=== PATIENT | female | born 1940 | race Caucasian/White ===

== ENCOUNTER → 2016-06-10 | Outpatient (CLI) | payer OTHER, BC ==
--- NOTE | 2016-06-10 09:33 | MRI ---
HISTORY: Low back pain, left radiculopathy Study: MRI lumbar spine without contrast Comparison: None Technique: Multiplanar multi-sequence MRI of the lumbar spine was obtained. Sagittal T1, sagittal T 2, and stir weighted images, axial T1, and axial T2 images were obtained. Findings: There is a compression fracture of T12 with signal characteristics suggesting that it is not recent. There is mild retrolisthesis L2 on L3 and L3 on L4. There is slight anterolisthesis L5 on S1. The l umbar spine demonstrates the expected signal characteristics of the bone marrow. The conus of the c ord terminates normally. T12 -- L1: Broad-based disc protrusion effaces the thecal sac however the neural foramina are patent . The joints are normal. L1 -- L2: Broad-based disk bulging effaces the thecal sac however the neural foramina are patent. Th e joints are normal. L2 -- L3: There is slight retrolisthesis L2 on L3. There is disc degeneration. Mild disk osteophyte formation and retrolisthesis contribute along with facet arthropathy to mild lateral recess narrowin g on the left and more significant lateral recess and foraminal narrowing on the right. L3 -- L4: There is disc degeneration with mild retrolisthesis L3 on L4 which contributes along with broad-based disc osteophyte formation and disk bulging and bilateral facet arthropathy and ligamento us hypertrophy to a significant spinal stenosis with lateral recess and foraminal narrowing bilatera lly worse on the right than the left. L4 -- L5: Broad-based disc protrusion contributes along with ligamentous hypertrophy, facet arthropa thy, and pedicular shortening to a significant spinal stenosis with marked lateral recess and forami nal narrowing bilaterally left worse than right. The involvement on the left is more prominent than at any of the levels above. L5 -- S1: Broad-based disc bulging contributes along with bilateral facet arthropathy to lateral rec ess and foraminal narrowing worse on the left than the right. IMPRESSION: As above Reported By:
== END | disposition home or self-care (01) | DRG 552 ==
LOC: RAD 08:10
PROVIDERS: ATTEND Internal Medicine
DX: M54.5 Low back pain (principal); M12.88 Other specific arthropathies, not elsewhere classified, other specified site
CPT/HCPCS: 72148

== ENCOUNTER 2017-01-28 15:26 | Inpatient (IN) | payer OTHER, BC ==
[2017-01-28] MEDS ORDERED: NITROSTAT SL PRN (17:36)
[2017-01-28] MEDS ORDERED: MORPHINE SULFATE INJ 2 MG INJ IVP PRN (17:36)
[2017-01-28 17:58] LABS: BASOPHILS # (AUTO) 0.1 X10^3/uL (0.0-0.1); BASOPHILS % (AUTO) 1.2 % (0.2-1.0); EOSINOPHILS # (AUTO) 0.2 x10^3/uL (0.0-0.2); EOSINOPHILS % (AUTO) 1.9 % (0.9-2.9); LYMPHOCYTES # (AUTO) 0.8 X10^3/uL (1.3-2.9); LYMPHOCYTES % (AUTO) 10.6 % (21.0-51.0); MEAN CORPUSCULAR HEMOGLOBIN 20.6 pg (27.0-34.0); MEAN CORPUSCULAR HGB CONC 31.1 g/dL (33.0-35.0); MEAN CORPUSCULAR VOLUME 66.2 fL (80.0-100.0); MEAN PLATELET VOLUME 7.1 fL (7.4-11.0); MONOCYTES # (AUTO) 0.4 x10^3/uL (0.3-0.8); MONOCYTES % (AUTO) 5.3 % (0.0-13.0); NEUTROPHILS # (AUTO) 6.4 x10^3/uL (2.2-4.8); PLATELET COUNT 405 X10^3/uL (150.0-450.0); RED BLOOD COUNT 2.78 X10^6/uL (3.5-5.4); RED CELL DISTRIBUTION WIDTH 22.7 % (11.6-16.5); WHITE BLOOD COUNT 7.9 X10^3/uL (3.6-10.0)
[2017-01-28 18:08] LABS: HEMOGLOBIN 5.7 g/dL (12.0-16.0)
[2017-01-28 18:09] LABS: HEMATOCRIT 18.4 % (36.0-47.0)
[2017-01-28 18:14] LABS: ALANINE AMINOTRANSFERASE 14 Units/L (12-78); ALBUMIN 3.8 g/dL (3.4-5.0); ALKALINE PHOSPHATASE 73 Units/L (46-116); ASPARTATE AMINO TRANSFERASE 15 Units/L (15-37); BLOOD UREA NITROGEN 30 mg/dL (7-18); CALCIUM 8.9 mg/dL (8.5-10.1); CARBON DIOXIDE 22.8 mmol/L (21-32); CHLORIDE 105 mmol/L (98-107); COR NA(FOR HYPERGLY) 140 mmol/L (136-145); CREATININE 1.66 mg/dL (0.55-1.02); MAGNESIUM 1.7 mg/dL (1.7-2.9); SODIUM 140 mmol/L (136-145); TOTAL PROTEIN 7.1 g/dL (6.4-8.2); eGFR BLACK RACES 38 (>60); eGFR NON BLACK RACES 32 (>60)
[2017-01-28 18:18] LABS: ANISOCYTOSIS 2+; HYPOCHROMASIA 2+; MICROCYTOSIS 1+; PLATELET MORPHOLOGY COMMENT NORMAL (NORMAL); POIKILOCYTOSIS SLIGHT
[2017-01-28 18:20] VITALS: BMI 26.5
[2017-01-28] MEDS ORDERED: BENADRYL INJ 50 MG VIAL IVP PRN (18:23)
[2017-01-28] MEDS ORDERED: NS 500 ML IV 500 ML IV ONE (18:23)
--- NOTE | 2017-01-28 18:25 | RAD ---
Chest, one-view Indication: Chest pain Comparison: None Findings: The heart is mildly enlarged without congestive failure. No focal consolidation, effusion o r pneumothorax is identified. There is suggestion of a moderate sized hiatal hernia. There is no acut e osseous abnormality. Impression: No acute cardiopulmonary abnormality. Suspected hiatal hernia. Reported By:
[2017-01-28 18:26] LABS: CKMB % 2.2 % (<4); CREATINE KINASE 74 Units/L (26-192); CREATINE KINASE MB 1.6 ng/mL (0-4.0); TROPONIN I < 0.02 ng/mL (0-1.5)
[2017-01-28] MEDS: ASPIRIN PO SCH (18:40)
[2017-01-28 19:09] LABS: IRON 9 ug/dL (50-175); TOTAL IRON BINDING CAPACITY 483 ug/dL (250-450); TRANSFERRIN 361 mg/dL (202-364)
[2017-01-28] MEDS: LOPRESSOR TAB 25 MG PO SCH ×2 (19:18→21:10)
[2017-01-28] MEDS: PEPCID TAB 20 MG PO SCH (21:00)
[2017-01-28] MEDS: PROTONIX INJ 40 MG VIAL IVP SCH (21:00)
[2017-01-28 21:37] LABS: CKMB % 1.9 % (<4); CREATINE KINASE 73 Units/L (26-192); CREATINE KINASE MB 1.4 ng/mL (0-4.0); TROPONIN I < 0.02 ng/mL (0-1.5)
[2017-01-28] MEDS: FLONASE NASAL SPRAY ENOSTRIL SCH (23:49)
[2017-01-29 02:21] LABS: CKMB % 1.6 % (<4); CREATINE KINASE 75 Units/L (26-192); CREATINE KINASE MB 1.2 ng/mL (0-4.0); TROPONIN I < 0.02 ng/mL (0-1.5)
[2017-01-29 02:34] LABS: BILIRUBIN,URINE NEGATIVE (NEGATIVE); BLOOD/HEMOGLOBIN,URINE NEGATIVE (NEGATIVE); GLUCOSE, URINE NEGATIVE (NEGATIVE); KETONES,URINE NEGATIVE (NEGATIVE); LEUKOCYTE ESTERASE ,URINE NEGATIVE (NEGATIVE); NITRITES,URINE NEGATIVE (NEGATIVE); PROTEIN,URINE NEGATIVE (NEGATIVE); UROBILINOGEN,URINE NORMAL (NORMAL)
[2017-01-29 02:42] LABS: APPEARANCE,URINE CLEAR (CLEAR); BACTERIA,URINE 2+ /HPF (NEGATIVE); COLOR,URINE YELLOW (YELLOW); RBC,URINE NONE SEEN /HPF (NEGATIVE); SQUAMOUS EPITHELIAL CELL,UR RARE /HPF (NEGATIVE); YEAST,URINE FEW /HPF (NEGATIVE)
[2017-01-29] MEDS ORDERED: NS 500 ML IV 500 ML IV ONE (05:10)
[2017-01-29 05:35] LABS: CHOL/HDL RATIO 3.8 (0.0-5.0)
[2017-01-29] MEDS: PEPCID TAB 20 MG PO SCH ×2 (08:38→20:41)
[2017-01-29] MEDS: PROTONIX INJ 40 MG VIAL IVP SCH (08:38)
[2017-01-29] MEDS: LOPRESSOR TAB 25 MG PO SCH ×2 (08:38→23:01)
[2017-01-29] MEDS: ASPIRIN PO SCH (08:38)
[2017-01-29] MEDS: TYLENOL 325 MG TAB PO PRN (08:49)
[2017-01-29] MEDS ORDERED: LOPRESSOR INJ 5 MG AMP IVP ONE (09:19)
[2017-01-29] MEDS: ZOFRAN INJ 4 MG VIAL IV PRN ×2 (10:38→17:15)
[2017-01-29] MEDS ORDERED: ZOFRAN INJ 4 MG VIAL ONE (10:38)
--- NOTE | 2017-01-29 10:43 | DR.UPDATE ---
H&P Update History and Physical Update: WAS SEEN IN THE OFFICE ON 01/28/17. A H&P WAS COMPLETED PRIOR TO ADMISSION. PATIENT HAS BEEN SEEN AND EXAMINED WITH NO CHANGES NOTED TO H&P. WE WILL OBTAIN LABS AND CONTINUE TO MONITOR. Changes noted: NO Yes with the following:
[2017-01-29] MEDS: FLONASE NASAL SPRAY ENOSTRIL SCH (10:59)
[2017-01-29 11:10] LABS: STOOL FOR WBC POSITIVE (NEGATIVE)
[2017-01-29 11:38] LABS: CRYPTOSPORIDIUM PARVUM ANTIGEN NEGATIVE (NEGATIVE); GIARDIA LAMBLIA ANTIGEN NEGATIVE (NEGATIVE)
[2017-01-29 13:21] LABS: BASOPHILS # (AUTO) 0.1 X10^3/uL (0.0-0.1); EOSINOPHILS # (AUTO) 0.2 x10^3/uL (0.0-0.2); EOSINOPHILS % (AUTO) 2.9 % (0.9-2.9); HEMATOCRIT 34.4 % (36.0-47.0); HEMOGLOBIN 11.1 g/dL (12.0-16.0); LYMPHOCYTES # (AUTO) 0.9 X10^3/uL (1.3-2.9); LYMPHOCYTES % (AUTO) 11.4 % (21.0-51.0); MEAN CORPUSCULAR HEMOGLOBIN 24.4 pg (27.0-34.0); MEAN CORPUSCULAR HGB CONC 32.4 g/dL (33.0-35.0); MEAN CORPUSCULAR VOLUME 75.1 fL (80.0-100.0); MEAN PLATELET VOLUME 8.7 fL (7.4-11.0); MONOCYTES # (AUTO) 0.5 x10^3/uL (0.3-0.8); MONOCYTES % (AUTO) 6.1 % (0.0-13.0); NEUTROPHILS # (AUTO) 5.9 x10^3/uL (2.2-4.8); NEUTROPHILS % (AUTO) 78.6 % (42.0-75.0); PLATELET COUNT 346 X10^3/uL (150.0-450.0); RED BLOOD COUNT 4.58 X10^6/uL (3.5-5.4); RED CELL DISTRIBUTION WIDTH 24.6 % (11.6-16.5); WHITE BLOOD COUNT 7.5 X10^3/uL (3.6-10.0)
[2017-01-29 13:28] LABS: CALCIUM 9.2 mg/dL (8.5-10.1); CARBON DIOXIDE 20.9 mmol/L (21-32); CREATININE 1.45 mg/dL (0.55-1.02)
[2017-01-29 13:31] LABS: HYPOCHROMASIA 2+; MICROCYTOSIS 1+; PLATELET MORPHOLOGY COMMENT NORMAL (NORMAL); POIKILOCYTOSIS 1+
[2017-01-29] MEDS ORDERED: ZESTRIL TAB 20 MG ONE ×2 (14:23→20:35)
[2017-01-29] MEDS: ANTIVERT TAB 25 MG PO SCH ×2 (14:32→23:02)
[2017-01-29] MEDS: ZESTRIL TAB 20 MG PO SCH ×2 (14:33→20:41)
[2017-01-29] MEDS: SINGULAIR TAB 10 MG PO SCH (14:33)
[2017-01-29] MEDS: EFFEXOR XR 37.5 MG CAP PO SCH (14:33)
[2017-01-29] MEDS: PATIENT'S HOME MEDICATION PO SCH ×2 (14:34→21:00)
[2017-01-29] MEDS ORDERED: NORCO 5/325 MG TAB PO PRN (20:00)
[2017-01-29] MEDS: NEURONTIN CAP 300 MG PO SCH (20:41)
[2017-01-29] MEDS: ZANAFLEX PO SCH (20:41)
[2017-01-29 20:57] LABS: HEMATOCRIT 33.3 % (36.0-47.0); HEMOGLOBIN 10.9 g/dL (12.0-16.0)
[2017-01-29] MEDS ORDERED: TIZANIDINE HCL PO SCH (21:00)
--- NOTE | 2017-01-29 21:18 | PCM.PROG ---
Progress Note - Progress Note for Day of Date: 01/29/17 - Subjective Subjective: WAS ADMITTED YESTERDAY AFTERNOON FOR COMPLAINTS OF WEAKNESS AND CHEST PAIN. ON ARRIVAL TO THE HOSPITAL, LABS WERE DRAWN. PATIENT WAS NOTED TO HAVE A HGB 5.7, HCT 18.4. SHE WAS GIVEN 4 UNITS PACKED RED BLOOD CELLS. TODAY, SHE IS ALERT AND ORIENTED, SITTING UP IN BED ON MORNING ROUNDS. PATIENTS FAMILY IS AT BEDSIDE. PATIENT CONTINUES WITH WEAKNESS THIS MORNING BUT DENIES CHEST PAIN. SHE IS NOTED WITH COMPLAINTS OF MILD, DIFFUSE ABDOMINAL PAIN AND REPORTS BLOOD IN STOOL. ON EXAMINATION, HEART IS NORMAL IN RATE AND RHYTHM. LUNGS SOUNDS ARE DIMINISHED THROUGHOUT. SHE IS NOTED TO BE UTILIZING OXYGEN VIA NASAL CANNULA AT 2L/MIN. ABDOMEN IS ROUND, SOFT, AND NOTED WITH MILD , DIFFUSE TENDERESS ON PALPATION. THERE IS GOOD RANGE OF MOVEMENT NOTED IN ALL EXTREMITIES. HER VITAL SIGNS THIS MORNING WERE 100.0-66-20-97%-151/70. ABNORMAL LAB VALUES INCLUDE THE FOLLOWING: HGB 11.1, HCT 34.4, CARBON DIOXIDE 20.9, BUN 23, CREATININE 1.45, GLUCOSE 132, TRIGLYCERIDES 219. CARDIAC ENZYMES AND EKG WITHIN NORMAL LIMITS. STOOL STUDIES WERE OBTAINED. THEY REPORTED POSITIVE FOR WHITE BLOOD CELLS AND OCCULT BLOOD. WE PLAN TO CHECK A CBC WITH DIFFERENTIAL IN THE MORNING AND RETIC. WE WILL CONSULT WITH . OTHERWISE, WE WILL CONTINUE TO MONITOR H&H AND FOLLOW UP WITH AM LABS. - Past Medical Family Social History Past Med/Fam/Surg Hx: No changes since H&P Allergies: Allergies iron Allergy (Verified 01/28/17 17:35) - Review of Systems ROS: No change since H&P - Vital Signs and I&O's Vital Signs: Temperature 98 F Pulse Rate [Right Brachial] 50 Respiratory Rate 25 Blood Pressure [Right Arm] 157/71 O2 Sat by Pulse Oximetry 97 Intake and Output: Intake & Output 01/27/17 01/28/17 01/29/17 01/30/17 11:59 11:59 11:59 11:59 Intake Total 1745 1070 Balance 1745 1070 - Physical Exam Oriented: Normal. negative: Time, Person, Place, Not Oriented, Unable to test, Other Eyes: Normal. negative: Blurred Vision, Diplopia, Discharge, Pain, Redness, Photophobia, Other Ear: Normal. negative: Right, Left, Swelling, Ecchymosis, Hemotypanum, Abrasion , Laceration Nose: Normal. negative: Injected, Discharge, Blood, Other Throat: Normal. negative: Tonsillar Hypertrophy, Red, Exudate, Dry, Other Respiratory: Right, Left, Generalized, Diminished Cardiovascular: Normal : Normal Auscultation: Bowel Sounds: Normal Palpation: Normal Tenderness: Diffuse, Mild Skin: Normal Musculoskeletal: Normal. negative: Right, Left, Shoulder, Clavicle, Arm, Elbow , Forearm, Wrist, Hand, Hip, Thigh, Knee, Leg, Ankle, Foot, Back:Thoracic, Back: Lumbar, Back:Midline, Back:Paraspinous, Pelvis, Swelling, Tender, Deformity, Pulse Deficit, Motor Deficit, Sensory Deficit, Instability, Crepitance Psychiatric: Normal Mood Description: Calm Affect: Normal Speech Pattern: Clear, Appropriate - Laboratory and Diagnostics Result Diagrams: 01/29/17 20:48 01/29/17 13:10 Labs: Laboratory WBC 7.5 X10^3/uL (3.6-10.0) 01/29/17 13:10 RBC 4.58 X10^6/uL (3.5-5.4) 01/29/17 13:10 Hgb 10.9 g/dL (12.0-16.0) L 01/29/17 20:48 Hct 33.3 % (36.0-47.0) L 01/29/17 20:48 MCV 75.1 fL (80.0-100.0) L 01/29/17 13:10 MCH 24.4 pg (27.0-34.0) L 01/29/17 13:10 MCHC 32.4 g/dL (33.0-35.0) L 01/29/17 13:10 RDW 24.6 % (11.6-16.5) H 01/29/17 13:10 Plt Count 346 X10^3/uL (150.0-450.0) 01/29/17 13:10 Plt Count Comment Adequate (ADEQUATE) 01/29/17 13:10 MPV 8.7 fL (7.4-11.0) 01/29/17 13:10 Neut % 78.6 % (42.0-75.0) H 01/29/17 13:10 Lymph % 11.4 % (21.0-51.0) L 01/29/17 13:10 [place] % 6.1 % (0.0-13.0) 01/29/17 13:10 Eos % 2.9 % (0.9-2.9) 01/29/17 13:10 Baso % 1.0 % (0.2-1.0) 01/29/17 13:10 Neut # 5.9 x10^3/uL (2.2-4.8) H 01/29/17 13:10 Lymph # 0.9 X10^3/uL (1.3-2.9) L 01/29/17 13:10 [place] # 0.5 x10^3/uL (0.3-0.8) 01/29/17 13:10 Eos # 0.2 x10^3/uL (0.0-0.2) 01/29/17 13:10 Baso # 0.1 X10^3/uL (0.0-0.1) 01/29/17 13:10 Absolute Nucleated RBC 0.1 /100WBC 01/29/17 13:10 Plt Morphology Comment Normal (NORMAL) 01/29/17 13:10 RBC Morphology Abnormal (NORMAL) A 01/29/17 13:10 Hypochromasia 2+ A 01/29/17 13:10 Poikilocytosis 1+ A 01/29/17 13:10 Anisocytosis 2+ A 01/28/17 17:47 Microcytosis 1+ A 01/29/17 13:10 INR Target Range - 01/28/17 17:47 INR 1.02 (0.8-1.3) 01/28/17 17:47 PTT 26.2 SECONDS (22.9-36.5) 01/28/17 17:47 PTT Comment - 01/28/17 17:47 Sodium 139 mmol/L (136-145) 01/29/17 13:10 Corrected Sodium 140 mmol/L (136-145) 01/29/17 13:10 Potassium 3.9 mmol/L (3.5-5.1) 01/29/17 13:10 Chloride 105 mmol/L (98-107) 01/29/17 13:10 Carbon Dioxide 20.9 mmol/L (21-32) L 01/29/17 13:10 BUN 23 mg/dL (7-18) H 01/29/17 13:10 Creatinine 1.45 mg/dL (0.55-1.02) H 01/29/17 13:10 Est GFR (MDRD) Af Amer 45 (>60) L 01/29/17 13:10 Est GFR (MDRD) Non-Af 37 (>60) L 01/29/17 13:10 Glucose 132 mg/dL (65-99) H 01/29/17 13:10 Calcium 9.2 mg/dL (8.5-10.1) 01/29/17 13:10 Corrected Calcium TNP 01/28/17 17:47 Magnesium 1.9 mg/dL (1.7-2.9) 01/29/17 13:10 Iron 9 ug/dL (50-175) L 01/28/17 17:47 TIBC 483 ug/dL (250-450) H 01/28/17 17:47 Transferrin 361 mg/dL (202-364) 01/28/17 17:47 Ferritin 8 ng/mL (8-252) 01/28/17 17:47 Total Bilirubin 0.20 mg/dL (0.2-1.0) 01/28/17 17:47 AST 15 Units/L (15-37) 01/28/17 17:47 ALT 14 Units/L (12-78) 01/28/17 17:47 Alkaline Phosphatase 73 Units/L (46-116) 01/28/17 17:47 Creatine Kinase 75 Units/L (26-192) 01/29/17 01:30 CK-MB (CK-2) 1.2 ng/mL (0-4.0) 01/29/17 01:30 CK/CKMB % Calc 1.6 % (<4) 01/29/17 01:30 Troponin I < 0.02 ng/mL (0-1.5) 01/29/17 01:30 Total Protein 7.1 g/dL (6.4-8.2) 01/28/17 17:47 Albumin 3.8 g/dL (3.4-5.0) 01/28/17 17:47 Globulin 3.3 g/dL (2.5-4.5) 01/28/17 17:47 Albumin/Globulin Ratio 1.2 Ratio (1.1-2.1) 01/28/17 17:47 Triglycerides 219 mg/dL (0-150) H 01/29/17 01:30 Cholesterol 172 mg/dL (0-200) 01/29/17 01:30 LDL Cholesterol, Calc 83 mg/dL (0-100) 01/29/17 01:30 HDL Cholesterol 45 mg/dL (40-60) 01/29/17 01:30 Cholesterol/HDL Ratio 3.8 (0.0-5.0) 01/29/17 01:30 Vitamin B12 961 pg/mL (193-986) 01/28/17 17:47 Folate > 20.0 ng/mL (>8.6) 01/28/17 17:47 Specimen Type Clean catch urine 01/29/17 02:00 Urine Color Yellow (YELLOW) 01/29/17 02:00 Urine Appearance Clear (CLEAR) 01/29/17 02:00 Urine pH 5.0 (5.0 - 8.0) 01/29/17 02:00 Ur Specific [place] 1.015 (1.000-1.030) 01/29/17 02:00 Urine Protein Negative (NEGATIVE) 01/29/17 02:00 Urine Glucose (UA) Negative (NEGATIVE) 01/29/17 02:00 Urine Ketones Negative (NEGATIVE) 01/29/17 02:00 Urine Occult Blood Negative (NEGATIVE) 01/29/17 02:00 Urine Nitrite Negative (NEGATIVE) 01/29/17 02:00 Urine Bilirubin Negative (NEGATIVE) 01/29/17 02:00 Urine Urobilinogen Normal (NORMAL) 01/29/17 02:00 Ur Leukocyte Esterase Negative (NEGATIVE) 01/29/17 02:00 Urine RBC None seen /HPF (NEGATIVE) 01/29/17 02:00 Urine WBC 0-3 /HPF (NEGATIVE) 01/29/17 02:00 Ur Squamous Epith Cells Rare /HPF (NEGATIVE) 01/29/17 02:00 Urine Bacteria 2+ /HPF (NEGATIVE) 01/29/17 02:00 Urine Yeast Few /HPF (NEGATIVE) 01/29/17 02:00 Ur Culture Indicated? No/not indicated 01/29/17 02:00 Stool Description 100g,unformed,burnett 01/29/17 10:21 Stl Occult Blood (IFOB) Positive (NEGATIVE) A 01/29/17 10:21 Stool for White Cells Positive (NEGATIVE) A 01/29/17 10:21 Stl C. diff Tox B Gene Negative (NEGATIVE) 01/29/17 10:21 Stl C. diff [id number] Negative (NEGATIVE) 01/29/17 10:21 Cryptosporid parvum Ag Negative (NEGATIVE) 01/29/17 10:21 E. histolytica Antigen Negative (NEGATIVE) 01/29/17 10:21 Giardia lamblia Ag Negative (NEGATIVE) 01/29/17 10:21 Blood Type A POSITIVE 01/28/17 18:39 Antibody Screen Negative 01/28/17 18:39 Crossmatch See Detail 01/28/17 18:39 - Plan (1) Anemia Status: Acute Qualifiers: Anemia type: iron deficiency Iron deficiency anemia type: chronic blood loss Qualified Code(s): D50.0 - Iron deficiency anemia secondary to blood loss (chronic) Plan: CONTINUE TO MONITOR H&H, CONSULT GI, CONTINUE TO MONITOR PATIENT (2) Shortness of breath Status: Acute Plan: CONTINUE SUPPLEMENTAL OXYGEN, CONTINUE TO MONITOR
[2017-01-30 05:59] LABS: ALANINE AMINOTRANSFERASE 16 Units/L (12-78); ALBUMIN 3.1 g/dL (3.4-5.0); ALKALINE PHOSPHATASE 63 Units/L (46-116); ASPARTATE AMINO TRANSFERASE 16 Units/L (15-37); BLOOD UREA NITROGEN 21 mg/dL (7-18); CALCIUM 8.7 mg/dL (8.5-10.1); CARBON DIOXIDE 21.1 mmol/L (21-32); CHLORIDE 105 mmol/L (98-107); COR CA(FOR HYPOALB) 9.4 mg/dL (8.5-10.1); CREATININE 1.25 mg/dL (0.55-1.02); SODIUM 139 mmol/L (136-145); TOTAL PROTEIN 6.2 g/dL (6.4-8.2); eGFR BLACK RACES 53 (>60); eGFR NON BLACK RACES 44 (>60)
[2017-01-30 06:14] LABS: BASOPHILS # (AUTO) 0.1 X10^3/uL (0.0-0.1); BASOPHILS % (AUTO) 0.8 % (0.2-1.0); EOSINOPHILS # (AUTO) 0.2 x10^3/uL (0.0-0.2); EOSINOPHILS % (AUTO) 2.6 % (0.9-2.9); HEMATOCRIT 29.4 % (36.0-47.0); LYMPHOCYTES # (AUTO) 1.2 X10^3/uL (1.3-2.9); LYMPHOCYTES % (AUTO) 16.1 % (21.0-51.0); MEAN CORPUSCULAR HGB CONC 33.9 g/dL (33.0-35.0); MEAN CORPUSCULAR VOLUME 73.7 fL (80.0-100.0); MONOCYTES # (AUTO) 0.6 x10^3/uL (0.3-0.8); MONOCYTES % (AUTO) 8.3 % (0.0-13.0); NEUTROPHILS # (AUTO) 5.2 x10^3/uL (2.2-4.8); NEUTROPHILS % (AUTO) 72.2 % (42.0-75.0); PLATELET COUNT 291 X10^3/uL (150.0-450.0); RED BLOOD COUNT 3.99 X10^6/uL (3.5-5.4); RETICULOCYTE % 1.85 % (0.8-2.2); WHITE BLOOD COUNT 7.2 X10^3/uL (3.6-10.0)
[2017-01-30] MEDS: ANTIVERT TAB 25 MG PO SCH ×3 (06:35→21:22)
[2017-01-30 06:55] LABS: ANISOCYTOSIS 2+; PLATELET MORPHOLOGY COMMENT NORMAL (NORMAL)
[2017-01-30] MEDS ORDERED: NS 500 ML IV 500 ML IV ONE (07:04)
[2017-01-30] MEDS ORDERED: ZESTRIL TAB 20 MG ONE ×2 (09:21→20:21)
[2017-01-30] MEDS: SINGULAIR TAB 10 MG PO SCH (09:32)
[2017-01-30] MEDS: EFFEXOR XR 37.5 MG CAP PO SCH (09:32)
[2017-01-30] MEDS: LOPRESSOR TAB 25 MG PO SCH ×2 (09:33→20:27)
[2017-01-30] MEDS: PEPCID TAB 20 MG PO SCH ×2 (09:33→20:28)
[2017-01-30] MEDS: ZESTRIL TAB 20 MG PO SCH ×2 (09:33→20:27)
[2017-01-30] MEDS: ASPIRIN PO SCH (09:33)
[2017-01-30] MEDS: PATIENT'S HOME MEDICATION PO SCH ×2 (09:34→20:28)
[2017-01-30] MEDS: PROTONIX INJ 40 MG VIAL IVP SCH (09:37)
[2017-01-30] MEDS: FLONASE NASAL SPRAY ENOSTRIL SCH (09:37)
[2017-01-30 14:38] LABS: HEMATOCRIT 34.3 % (36.0-47.0); HEMOGLOBIN 11.2 g/dL (12.0-16.0)
[2017-01-30 19:52] LABS: HEMATOCRIT 31.7 % (36.0-47.0); HEMOGLOBIN 10.6 g/dL (12.0-16.0)
[2017-01-30] MEDS: NEURONTIN CAP 300 MG PO SCH (20:27)
[2017-01-30] MEDS: ZANAFLEX PO SCH (20:28)
--- NOTE | 2017-01-30 23:14 | PCM.PROG ---
Progress Note - Progress Note for Day of Date: 01/30/17 - Subjective Subjective: WAS ADMITTED FOR GENERALIZED WEAKNESS AND CHEST PAIN. ON ADMISSION, SHE WAS NOTED TO BE ANEMIC WITH A HEMOGLOBIN OF 5.7. SHE RECEIVED FOUR UNITS OF PACKED RED BLOOD CELLS. TODAY, SHE IS ALERT AND ORIENTED, SITTING UP IN BED ON MORNING ROUNDS. PATIENTS FAMILY IS AT BEDSIDE. PATIENT CONTINUES WITH WEAKNESS THIS MORNING BUT DENIES CHEST PAIN. SHE ALSO CONTINUES WITH ABDOMIAL PAIN. ON EXAMINATION, HEART IS NORMAL IN RATE AND RHYTHM. LUNGS SOUNDS ARE CLEAR THROUGHOUT. SHE IS NOTED TO BE UTILIZING OXYGEN VIA NASAL CANNULA AT 2L/MIN. ABDOMEN IS ROUND, SOFT, AND NOTED WITH MILD, DIFFUSE TENDERESS ON PALPATION. THERE IS GOOD RANGE OF MOVEMENT NOTED IN ALL EXTREMITIES. HER VITAL SIGNS THIS MORNING WERE 99.4-96-17-100%-104/54. SHE REMAINS HEMODINAMICALLY STABLE TODAY. HGB IS NOTED TO BE 10.0, HCT 29.4. STOOLS WERE NOTED TO BE POSITIVE FOR WBC AND OCCULT BLOOD LAST NIGHT. RADIOLOGY WAS UNABLE TO OBTAIN THE CARDIAC CTA THAT WAS ORDERED DUE TO DECREASED GFR. WE HAVE ORDERED FOR A GASTROENTEROLOGY CONSULT. WE WILL CONTNUE WITH CURRENT PLAN OF CARE TODAY. OTHERWISE, WE WILL CONTINUE TO MONITOR H&H AND FOLLOW UP WITH AM LABS. - Past Medical Family Social History Past Med/Fam/Surg Hx: No changes since H&P Allergies: Allergies iron Allergy (Verified 01/28/17 17:35) - Review of Systems ROS: No change since H&P - Vital Signs and I&O's Vital Signs: Temperature 98.9 F Pulse Rate [Right Brachial] 62 Respiratory Rate 20 Blood Pressure [Right Arm] 171/77 O2 Sat by Pulse Oximetry 95 Intake and Output: Intake & Output 01/28/17 01/29/17 01/30/17 01/31/17 11:59 11:59 11:59 11:59 Intake Total 1744 1955 30 Balance 1744 1955 30 - Physical Exam Oriented: Normal. negative: Time, Person, Place, Not Oriented, Unable to test, Other Eyes: Normal. negative: Blurred Vision, Diplopia, Discharge, Pain, Redness, Photophobia, Other Ear: Normal. negative: Right, Left, Swelling, Ecchymosis, Hemotypanum, Abrasion , Laceration Nose: Normal. negative: Injected, Discharge, Blood, Other Throat: Normal. negative: Tonsillar Hypertrophy, Red, Exudate, Dry, Other Respiratory: Right, Left, Generalized, Diminished Cardiovascular: Normal : Normal Auscultation: Bowel Sounds: Normal Palpation: Normal Tenderness: Diffuse, Mild Skin: Normal Musculoskeletal: Normal. negative: Right, Left, Shoulder, Clavicle, Arm, Elbow , Forearm, Wrist, Hand, Hip, Thigh, Knee, Leg, Ankle, Foot, Back:Thoracic, Back: Lumbar, Back:Midline, Back:Paraspinous, Pelvis, Swelling, Tender, Deformity, Pulse Deficit, Motor Deficit, Sensory Deficit, Instability, Crepitance Psychiatric: Normal Mood Description: Calm Affect: Normal Speech Pattern: Clear, Appropriate - Laboratory and Diagnostics Result Diagrams: 01/30/17 19:20 01/30/17 04:35 Labs: 01/29/17 10:21 Stool Stool Culture - Preliminary 01/29/17 10:21 Stool - Final Laboratory WBC 7.2 X10^3/uL (3.6-10.0) 01/30/17 04:35 RBC 3.99 X10^6/uL (3.5-5.4) 01/30/17 04:35 Hgb 10.6 g/dL (12.0-16.0) L 01/30/17 19:20 Hct 31.7 % (36.0-47.0) L 01/30/17 19:20 MCV 73.7 fL (80.0-100.0) L 01/30/17 04:35 MCH 25.0 pg (27.0-34.0) L 01/30/17 04:35 MCHC 33.9 g/dL (33.0-35.0) 01/30/17 04:35 RDW 25.0 % (11.6-16.5) H 01/30/17 04:35 Plt Count 291 X10^3/uL (150.0-450.0) 01/30/17 04:35 Plt Count Comment Adequate (ADEQUATE) 01/30/17 04:35 MPV 8.0 fL (7.4-11.0) 01/30/17 04:35 Neut % 72.2 % (42.0-75.0) 01/30/17 04:35 Lymph % 16.1 % (21.0-51.0) L 01/30/17 04:35 [place] % 8.3 % (0.0-13.0) 01/30/17 04:35 Eos % 2.6 % (0.9-2.9) 01/30/17 04:35 Baso % 0.8 % (0.2-1.0) 01/30/17 04:35 Neut # 5.2 x10^3/uL (2.2-4.8) H 01/30/17 04:35 Lymph # 1.2 X10^3/uL (1.3-2.9) L 01/30/17 04:35 [place] # 0.6 x10^3/uL (0.3-0.8) 01/30/17 04:35 Eos # 0.2 x10^3/uL (0.0-0.2) 01/30/17 04:35 Baso # 0.1 X10^3/uL (0.0-0.1) 01/30/17 04:35 Absolute Nucleated RBC 0.2 /100WBC 01/30/17 04:35 Total Counted Cancelled 01/30/17 04:35 Neutrophils % (Manual) Cancelled 01/30/17 04:35 Band Neutrophils % Cancelled 01/30/17 04:35 Lymphocytes % (Manual) Cancelled 01/30/17 04:35 Monocytes % (Manual) Cancelled 01/30/17 04:35 Eosinophils % (Manual) Cancelled 01/30/17 04:35 Basophils % (Manual) Cancelled 01/30/17 04:35 Metamyelocytes % Cancelled 01/30/17 04:35 Myelocytes % Cancelled 01/30/17 04:35 Promyelocytes % Cancelled 01/30/17 04:35 Plt Morphology Comment Normal (NORMAL) 01/30/17 04:35 RBC Morphology Abnormal (NORMAL) A 01/30/17 04:35 Hypochromasia 2+ A 01/29/17 13:10 Poikilocytosis 1+ A 01/29/17 13:10 Anisocytosis 2+ A 01/30/17 04:35 Microcytosis 1+ A 01/29/17 13:10 Absolute Retic 0.0737 10^6/uL 01/30/17 04:35 Percent Retic 1.85 % (0.8-2.2) 01/30/17 04:35 INR Target Range - 01/28/17 17:47 INR 1.02 (0.8-1.3) 01/28/17 17:47 PTT 26.2 SECONDS (22.9-36.5) 01/28/17 17:47 PTT Comment - 01/28/17 17:47 Sodium 139 mmol/L (136-145) 01/30/17 04:35 Corrected Sodium TNP 01/30/17 04:35 Potassium 3.8 mmol/L (3.5-5.1) 01/30/17 04:35 Chloride 105 mmol/L (98-107) 01/30/17 04:35 Carbon Dioxide 21.1 mmol/L (21-32) 01/30/17 04:35 BUN 21 mg/dL (7-18) H 01/30/17 04:35 Creatinine 1.25 mg/dL (0.55-1.02) H 01/30/17 04:35 Est GFR (MDRD) Af Amer 53 (>60) L 01/30/17 04:35 Est GFR (MDRD) Non-Af 44 (>60) L 01/30/17 04:35 Glucose 98 mg/dL (65-99) 01/30/17 04:35 Calcium 8.7 mg/dL (8.5-10.1) 01/30/17 04:35 Corrected Calcium 9.4 mg/dL (8.5-10.1) 01/30/17 04:35 Magnesium 1.9 mg/dL (1.7-2.9) 01/29/17 13:10 Iron 9 ug/dL (50-175) L 01/28/17 17:47 TIBC 483 ug/dL (250-450) H 01/28/17 17:47 Transferrin 361 mg/dL (202-364) 01/28/17 17:47 Ferritin 8 ng/mL (8-252) 01/28/17 17:47 Total Bilirubin 0.40 mg/dL (0.2-1.0) 01/30/17 04:35 AST 16 Units/L (15-37) 01/30/17 04:35 ALT 16 Units/L (12-78) 01/30/17 04:35 Alkaline Phosphatase 63 Units/L (46-116) 01/30/17 04:35 Creatine Kinase 75 Units/L (26-192) 01/29/17 01:30 CK-MB (CK-2) 1.2 ng/mL (0-4.0) 01/29/17 01:30 CK/CKMB % Calc 1.6 % (<4) 01/29/17 01:30 Troponin I < 0.02 ng/mL (0-1.5) 01/29/17 01:30 Total Protein 6.2 g/dL (6.4-8.2) L 01/30/17 04:35 Albumin 3.1 g/dL (3.4-5.0) L 01/30/17 04:35 Globulin 3.1 g/dL (2.5-4.5) 01/30/17 04:35 Albumin/Globulin Ratio 1.0 Ratio (1.1-2.1) L 01/30/17 04:35 Triglycerides 219 mg/dL (0-150) H 01/29/17 01:30 Cholesterol 172 mg/dL (0-200) 01/29/17 01:30 LDL Cholesterol, Calc 83 mg/dL (0-100) 01/29/17 01:30 HDL Cholesterol 45 mg/dL (40-60) 01/29/17 01:30 Cholesterol/HDL Ratio 3.8 (0.0-5.0) 01/29/17 01:30 Vitamin B12 961 pg/mL (193-986) 01/28/17 17:47 Folate > 20.0 ng/mL (>8.6) 01/28/17 17:47 Specimen Type Clean catch urine 01/29/17 02:00 Urine Color Yellow (YELLOW) 01/29/17 02:00 Urine Appearance Clear (CLEAR) 01/29/17 02:00 Urine pH 5.0 (5.0 - 8.0) 01/29/17 02:00 Ur Specific [place] 1.015 (1.000-1.030) 01/29/17 02:00 Urine Protein Negative (NEGATIVE) 01/29/17 02:00 Urine Glucose (UA) Negative (NEGATIVE) 01/29/17 02:00 Urine Ketones Negative (NEGATIVE) 01/29/17 02:00 Urine Occult Blood Negative (NEGATIVE) 01/29/17 02:00 Urine Nitrite Negative (NEGATIVE) 01/29/17 02:00 Urine Bilirubin Negative (NEGATIVE) 01/29/17 02:00 Urine Urobilinogen Normal (NORMAL) 01/29/17 02:00 Ur Leukocyte Esterase Negative (NEGATIVE) 01/29/17 02:00 Urine RBC None seen /HPF (NEGATIVE) 01/29/17 02:00 Urine WBC 0-3 /HPF (NEGATIVE) 01/29/17 02:00 Ur Squamous Epith Cells Rare /HPF (NEGATIVE) 01/29/17 02:00 Urine Bacteria 2+ /HPF (NEGATIVE) 01/29/17 02:00 Urine Yeast Few /HPF (NEGATIVE) 01/29/17 02:00 Ur Culture Indicated? No/not indicated 01/29/17 02:00 Stool Description 100g,unformed,[place]ett 01/29/17 10:21 Stl Occult Blood (IFOB) Positive (NEGATIVE) A 01/29/17 10:21 Stool for White Cells Positive (NEGATIVE) A 01/29/17 10:21 Stl C. diff Tox B Gene Negative (NEGATIVE) 01/29/17 10:21 Stl C. diff [id number] Negative (NEGATIVE) 01/29/17 10:21 Cryptosporid parvum Ag Negative (NEGATIVE) 01/29/17 10:21 E. histolytica Antigen Negative (NEGATIVE) 01/29/17 10:21 Giardia lamblia Ag Negative (NEGATIVE) 01/29/17 10:21 Blood Type A POSITIVE 01/28/17 18:39 Antibody Screen Negative 01/28/17 18:39 Crossmatch See Detail 01/28/17 18:39 - Plan (1) GI bleed Status: Acute Qualifiers: GI bleed type/associated pathology: unspecified gastrointestinal hemorrhage type Qualified Code(s): K92.2 - Gastrointestinal hemorrhage, unspecified Plan: GI CONSULT, CONTINUE PEPCID, CONTINUE PROTONIX, CONTINUE TO MONITOR (2) Anemia Status: Acute Qualifiers: Anemia type: iron deficiency Iron deficiency anemia type: chronic blood loss Qualified Code(s): D50.0 - Iron deficiency anemia secondary to blood loss (chronic) Plan: CONTINUE TO MONITOR H&H, CONSULT GI, CONTINUE TO MONITOR PATIENT (3) Shortness of breath Status: Acute Plan: CONTINUE SUPPLEMENTAL OXYGEN, CONTINUE TO MONITOR (4) Hypertension Status: Acute Qualifiers: Hypertension type: essential hypertension Qualified Code(s): I10 - Essential (primary) hypertension Plan: CONTINUE LISINOPRIL, CONTINUE LOPRESSOR, CONTINUE TO MONITOR (5) Depression Status: Acute Qualifiers: Depression Type: major depressive disorder Major depression recurrence: recurrent Active/Remission status: remission status unspecified Qualified Code(s): F33.9 - Major depressive disorder, recurrent, unspecified Plan: CONTINUE EFFEXOR, CONTINUE TO MONITOR (6) Environmental allergies Status: Acute Plan: CONTINUE SINGULAIR, CONTINUE FLONASE, CONTINUE TO MONITOR
[2017-01-31] MEDS: ANTIVERT TAB 25 MG PO SCH ×3 (05:08→21:14)
[2017-01-31 06:08] LABS: BASOPHILS # (AUTO) 0.1 X10^3/uL (0.0-0.1); BASOPHILS % (AUTO) 1.5 % (0.2-1.0); EOSINOPHILS # (AUTO) 0.4 x10^3/uL (0.0-0.2); EOSINOPHILS % (AUTO) 5.9 % (0.9-2.9); HEMATOCRIT 31.1 % (36.0-47.0); HEMOGLOBIN 10.2 g/dL (12.0-16.0); LYMPHOCYTES # (AUTO) 1.4 X10^3/uL (1.3-2.9); LYMPHOCYTES % (AUTO) 19.8 % (21.0-51.0); MEAN CORPUSCULAR HEMOGLOBIN 24.6 pg (27.0-34.0); MEAN CORPUSCULAR HGB CONC 32.9 g/dL (33.0-35.0); MEAN CORPUSCULAR VOLUME 74.7 fL (80.0-100.0); MEAN PLATELET VOLUME 8.3 fL (7.4-11.0); MONOCYTES # (AUTO) 0.6 x10^3/uL (0.3-0.8); MONOCYTES % (AUTO) 8.8 % (0.0-13.0); NEUTROPHILS # (AUTO) 4.4 x10^3/uL (2.2-4.8); PLATELET COUNT 312 X10^3/uL (150.0-450.0); RED BLOOD COUNT 4.16 X10^6/uL (3.5-5.4); WHITE BLOOD COUNT 6.9 X10^3/uL (3.6-10.0)
[2017-01-31 06:33] LABS: ALANINE AMINOTRANSFERASE 17 Units/L (12-78); ALBUMIN 3.1 g/dL (3.4-5.0); ALKALINE PHOSPHATASE 63 Units/L (46-116); ASPARTATE AMINO TRANSFERASE 15 Units/L (15-37); BLOOD UREA NITROGEN 24 mg/dL (7-18); CALCIUM 8.8 mg/dL (8.5-10.1); CARBON DIOXIDE 22.3 mmol/L (21-32); CHLORIDE 106 mmol/L (98-107); COR CA(FOR HYPOALB) 9.5 mg/dL (8.5-10.1); CREATININE 1.29 mg/dL (0.55-1.02); SODIUM 140 mmol/L (136-145); TOTAL PROTEIN 6.2 g/dL (6.4-8.2); eGFR BLACK RACES 51 (>60); eGFR NON BLACK RACES 42 (>60)
[2017-01-31 08:08] LABS: MICROCYTOSIS 1+; PLATELET MORPHOLOGY COMMENT NORMAL (NORMAL); POIKILOCYTOSIS SLIGHT
[2017-01-31] MEDS ORDERED: ZESTRIL TAB 20 MG ONE ×2 (09:25→20:14)
[2017-01-31] MEDS: PATIENT'S HOME MEDICATION PO SCH ×2 (10:22→20:25)
[2017-01-31] MEDS: PEPCID TAB 20 MG PO SCH ×2 (10:22→20:24)
[2017-01-31] MEDS: EFFEXOR XR 37.5 MG CAP PO SCH (10:22)
[2017-01-31] MEDS: LOPRESSOR TAB 25 MG PO SCH ×2 (10:22→20:24)
[2017-01-31] MEDS: FLONASE NASAL SPRAY ENOSTRIL SCH (10:22)
[2017-01-31] MEDS: PROTONIX INJ 40 MG VIAL IVP SCH (10:22)
[2017-01-31] MEDS: ZESTRIL TAB 20 MG PO SCH ×2 (10:23→20:24)
[2017-01-31] MEDS: SINGULAIR TAB 10 MG PO SCH (10:23)
[2017-01-31 10:43] LABS: HEMATOCRIT 33.8 % (36.0-47.0)
[2017-01-31 16:04] LABS: HEMATOCRIT 33.2 % (36.0-47.0); HEMOGLOBIN 10.9 g/dL (12.0-16.0)
[2017-01-31] MEDS: NEURONTIN CAP 300 MG PO SCH (20:24)
[2017-01-31] MEDS: ZANAFLEX PO SCH (20:25)
[2017-01-31] MEDS: TYLENOL 325 MG TAB PO PRN (20:29)
[2017-01-31 21:41] LABS: HEMATOCRIT 31.6 % (36.0-47.0); HEMOGLOBIN 10.4 g/dL (12.0-16.0)
[2017-02-01] MEDS: ANTIVERT TAB 25 MG PO SCH (05:18)
[2017-02-01 06:08] LABS: BASOPHILS # (AUTO) 0.1 X10^3/uL (0.0-0.1); BASOPHILS % (AUTO) 1.3 % (0.2-1.0); EOSINOPHILS # (AUTO) 0.5 x10^3/uL (0.0-0.2); EOSINOPHILS % (AUTO) 7.2 % (0.9-2.9); HEMATOCRIT 32.1 % (36.0-47.0); HEMOGLOBIN 10.6 g/dL (12.0-16.0); LYMPHOCYTES # (AUTO) 1.2 X10^3/uL (1.3-2.9); LYMPHOCYTES % (AUTO) 18.4 % (21.0-51.0); MEAN CORPUSCULAR HEMOGLOBIN 24.5 pg (27.0-34.0); MEAN CORPUSCULAR VOLUME 74.3 fL (80.0-100.0); MEAN PLATELET VOLUME 8.3 fL (7.4-11.0); MONOCYTES # (AUTO) 0.6 x10^3/uL (0.3-0.8); MONOCYTES % (AUTO) 9.2 % (0.0-13.0); NEUTROPHILS # (AUTO) 4.3 x10^3/uL (2.2-4.8); NEUTROPHILS % (AUTO) 63.9 % (42.0-75.0); PLATELET COUNT 330 X10^3/uL (150.0-450.0); RED BLOOD COUNT 4.32 X10^6/uL (3.5-5.4); RED CELL DISTRIBUTION WIDTH 26.1 % (11.6-16.5); WHITE BLOOD COUNT 6.6 X10^3/uL (3.6-10.0)
[2017-02-01 06:19] LABS: ALANINE AMINOTRANSFERASE 15 Units/L (12-78); ALBUMIN 3.2 g/dL (3.4-5.0); ALKALINE PHOSPHATASE 67 Units/L (46-116); ASPARTATE AMINO TRANSFERASE 15 Units/L (15-37); BLOOD UREA NITROGEN 25 mg/dL (7-18); CALCIUM 8.9 mg/dL (8.5-10.1); CARBON DIOXIDE 22.6 mmol/L (21-32); CHLORIDE 106 mmol/L (98-107); COR CA(FOR HYPOALB) 9.5 mg/dL (8.5-10.1); CREATININE 1.21 mg/dL (0.55-1.02); SODIUM 141 mmol/L (136-145); TOTAL PROTEIN 6.3 g/dL (6.4-8.2); eGFR BLACK RACES 55 (>60); eGFR NON BLACK RACES 46 (>60)
[2017-02-01 06:51] LABS: ANISOCYTOSIS 2+; PLATELET MORPHOLOGY COMMENT NORMAL (NORMAL)
[2017-02-01] MEDS ORDERED: ZESTRIL TAB 20 MG ONE (08:24)
[2017-02-01] MEDS: PROTONIX INJ 40 MG VIAL IVP SCH (08:28)
[2017-02-01] MEDS: FLONASE NASAL SPRAY ENOSTRIL SCH (08:28)
[2017-02-01] MEDS: ZESTRIL TAB 20 MG PO SCH (08:29)
[2017-02-01] MEDS: PEPCID TAB 20 MG PO SCH (08:29)
[2017-02-01] MEDS: SINGULAIR TAB 10 MG PO SCH (08:29)
[2017-02-01] MEDS: EFFEXOR XR 37.5 MG CAP PO SCH (08:29)
[2017-02-01] MEDS: LOPRESSOR TAB 25 MG PO SCH (08:29)
[2017-02-01] MEDS: PATIENT'S HOME MEDICATION PO SCH (08:30)
[2017-02-01] MEDS ORDERED: K-LYTE EFFERVESCENT PO PRN (08:43)
[2017-02-01] MEDS ORDERED: POTASSIUM CHLORIDE LIQ 20 MEQ UDC PO PRN (08:43)
[2017-02-01] MEDS ORDERED: MAG-OX TAB PO PRN (08:43)
[2017-02-01] MEDS ORDERED: POTASSIUM CHL 60 MEQ/NS 0.45% 500 ML IV PRN (08:43)
[2017-02-01] MEDS ORDERED: K-RIDER 10 MEQ/NS 100 ML 10 MEQ/100 ML BAG IV PRN (08:43)
[2017-02-01] MEDS ORDERED: MAGNESIUM SULFATE 1 GM/100 mL PREMIX 1 GM/100 ML BAG IV PRN (08:43)
[2017-02-01] MEDS ORDERED: POTASSIUM CHL 40 MEQ/NS 0.45% 500 ML IV PRN (08:43)
[2017-02-01 11:25] VITALS: BP 184/79
--- NOTE | 2017-02-01 20:55 | PCM.PROG ---
Progress Note - Progress Note for Day of Date: 01/31/17 - Subjective Subjective: WAS ADMITTED FOR GENERALIZED WEAKNESS AND CHEST PAIN. ON ADMISSION, SHE WAS NOTED TO BE ANEMIC WITH A HEMOGLOBIN OF 5.7. SHE RECEIVED FOUR UNITS OF PACKED RED BLOOD CELLS. TODAY, SHE IS ALERT AND ORIENTED, SITTING UP IN BED ON MORNING ROUNDS. PATIENTS FAMILY IS AT BEDSIDE. PATIENT CONTINUES WITH MILD, DIFFUSE ABDOMIAL PAIN, BUT REPORTS IMPROVEMENT SINCE YESTERDAY. ON EXAMINATION, HEART IS NORMAL IN RATE AND RHYTHM. LUNGS SOUNDS ARE CLEAR THROUGHOUT. SHE IS NOTED TO BE UTILIZING OXYGEN VIA NASAL CANNULA AT 2L/MIN. ABDOMEN IS ROUND, SOFT, AND NOTED WITH MILD, DIFFUSE TENDERESS ON PALPATION. THERE IS GOOD RANGE OF MOVEMENT NOTED IN ALL EXTREMITIES. HER VITAL SIGNS THIS MORNING WERE 99.3-52-16-94%-159/66. SHE REMAINS HEMODINAMICALLY STABLE TODAY. HGB IS NOTED TO BE 10.2, HCT 31.1. WE HAVE ORDERED FOR A GASTROENTEROLOGY CONSULT. PATIENT REPORTS ENDOSCOPY APPROXIMATELY TWO MONTHS AGO WITH IN [place]. SHE MAY BENEFIT FROM A PILL ENDOSCOPY. WE WILL DISCUSS THIS WITH . OTHERWISE, WE WILL CONTINUE WITH CURRENT PLAN OF CARE TODAY. WE WILL FOLLOW UP WITH AM LABS AND CONTINUE TO MONITOR PATIENT. - Past Medical Family Social History Past Med/Fam/Surg Hx: No changes since H&P Allergies: Allergies iron Allergy (Verified 01/28/17 17:35) - Review of Systems ROS: No change since H&P - Vital Signs and I&O's Vital Signs: Temperature 97.2 F Pulse Rate [Right Brachial] 88 Respiratory Rate 20 Blood Pressure [Right Arm] 184/79 O2 Sat by Pulse Oximetry 98 Intake and Output: Intake & Output 01/30/17 01/31/17 02/01/17 02/02/17 11:59 11:59 11:59 11:59 Intake Total 1955 730 970 Output Total 25 Balance 1955 730 945 - Physical Exam Oriented: Normal. negative: Time, Person, Place, Not Oriented, Unable to test, Other Eyes: Normal. negative: Blurred Vision, Diplopia, Discharge, Pain, Redness, Photophobia, Other Ear: Normal. negative: Right, Left, Swelling, Ecchymosis, Hemotypanum, Abrasion , Laceration Nose: Normal. negative: Injected, Discharge, Blood, Other Throat: Normal. negative: Tonsillar Hypertrophy, Red, Exudate, Dry, Other Respiratory: Right, Left, Generalized, Diminished Cardiovascular: Normal : Normal Auscultation: Bowel Sounds: Normal Palpation: Normal Tenderness: Diffuse, Mild Skin: Normal Musculoskeletal: Normal. negative: Right, Left, Shoulder, Clavicle, Arm, Elbow , Forearm, Wrist, Hand, Hip, Thigh, Knee, Leg, Ankle, Foot, Back:Thoracic, Back: Lumbar, Back:Midline, Back:Paraspinous, Pelvis, Swelling, Tender, Deformity, Pulse Deficit, Motor Deficit, Sensory Deficit, Instability, Crepitance Psychiatric: Normal Mood Description: Calm Affect: Normal Speech Pattern: Clear, Appropriate - Laboratory and Diagnostics Result Diagrams: 02/01/17 04:30 02/01/17 04:30 Labs: 01/29/17 10:21 Stool Stool Culture - Final 01/29/17 10:21 Stool - Final Laboratory WBC 6.6 X10^3/uL (3.6-10.0) 02/01/17 04:30 RBC 4.32 X10^6/uL (3.5-5.4) 02/01/17 04:30 Hgb 10.6 g/dL (12.0-16.0) L 02/01/17 04:30 Hct 32.1 % (36.0-47.0) L 02/01/17 04:30 MCV 74.3 fL (80.0-100.0) L 02/01/17 04:30 MCH 24.5 pg (27.0-34.0) L 02/01/17 04:30 MCHC 33.0 g/dL (33.0-35.0) 02/01/17 04:30 RDW 26.1 % (11.6-16.5) H 02/01/17 04:30 Plt Count 330 X10^3/uL (150.0-450.0) 02/01/17 04:30 Plt Count Comment Adequate (ADEQUATE) 02/01/17 04:30 MPV 8.3 fL (7.4-11.0) 02/01/17 04:30 Neut % 63.9 % (42.0-75.0) 02/01/17 04:30 Lymph % 18.4 % (21.0-51.0) L 02/01/17 04:30 Turner % 9.2 % (0.0-13.0) 02/01/17 04:30 Eos % 7.2 % (0.9-2.9) H 02/01/17 04:30 Baso % 1.3 % (0.2-1.0) H 02/01/17 04:30 Neut # 4.3 x10^3/uL (2.2-4.8) 02/01/17 04:30 Lymph # 1.2 X10^3/uL (1.3-2.9) L 02/01/17 04:30 Turner # 0.6 x10^3/uL (0.3-0.8) 02/01/17 04:30 Eos # 0.5 x10^3/uL (0.0-0.2) H 02/01/17 04:30 Baso # 0.1 X10^3/uL (0.0-0.1) 02/01/17 04:30 Absolute Nucleated RBC 0.1 /100WBC 02/01/17 04:30 Total Counted Cancelled 01/30/17 04:35 Neutrophils % (Manual) Cancelled 01/30/17 04:35 Band Neutrophils % Cancelled 01/30/17 04:35 Lymphocytes % (Manual) Cancelled 01/30/17 04:35 Monocytes % (Manual) Cancelled 01/30/17 04:35 Eosinophils % (Manual) Cancelled 01/30/17 04:35 Basophils % (Manual) Cancelled 01/30/17 04:35 Metamyelocytes % Cancelled 01/30/17 04:35 Myelocytes % Cancelled 01/30/17 04:35 Promyelocytes % Cancelled 01/30/17 04:35 Plt Morphology Comment Normal (NORMAL) 02/01/17 04:30 RBC Morphology Abnormal (NORMAL) A 02/01/17 04:30 Dimorphic RBCs 1+ 01/31/17 04:30 Hypochromasia 2+ A 01/29/17 13:10 Poikilocytosis Slight A 01/31/17 04:30 Anisocytosis 2+ A 02/01/17 04:30 Microcytosis 1+ A 01/31/17 04:30 Absolute Retic 0.0737 10^6/uL 01/30/17 04:35 Percent Retic 1.85 % (0.8-2.2) 01/30/17 04:35 INR Target Range - 01/28/17 17:47 INR 1.02 (0.8-1.3) 01/28/17 17:47 PTT 26.2 SECONDS (22.9-36.5) 01/28/17 17:47 PTT Comment - 01/28/17 17:47 Sodium 141 mmol/L (136-145) 02/01/17 04:30 Corrected Sodium TNP 02/01/17 04:30 Potassium 3.6 mmol/L (3.5-5.1) 02/01/17 04:30 Chloride 106 mmol/L (98-107) 02/01/17 04:30 Carbon Dioxide 22.6 mmol/L (21-32) 02/01/17 04:30 BUN 25 mg/dL (7-18) H 02/01/17 04:30 Creatinine 1.21 mg/dL (0.55-1.02) H 02/01/17 04:30 Est GFR (MDRD) Af Amer 55 (>60) L 02/01/17 04:30 Est GFR (MDRD) Non-Af 46 (>60) L 02/01/17 04:30 Glucose 101 mg/dL (65-99) H 02/01/17 04:30 Calcium 8.9 mg/dL (8.5-10.1) 02/01/17 04:30 Corrected Calcium 9.5 mg/dL (8.5-10.1) 02/01/17 04:30 Magnesium 1.8 mg/dL (1.7-2.9) 02/01/17 04:30 Iron 9 ug/dL (50-175) L 01/28/17 17:47 TIBC 483 ug/dL (250-450) H 01/28/17 17:47 Transferrin 361 mg/dL (202-364) 01/28/17 17:47 Ferritin 8 ng/mL (8-252) 01/28/17 17:47 Total Bilirubin 0.30 mg/dL (0.2-1.0) 02/01/17 04:30 AST 15 Units/L (15-37) 02/01/17 04:30 ALT 15 Units/L (12-78) 02/01/17 04:30 Alkaline Phosphatase 67 Units/L (46-116) 02/01/17 04:30 Creatine Kinase 75 Units/L (26-192) 01/29/17 01:30 CK-MB (CK-2) 1.2 ng/mL (0-4.0) 01/29/17 01:30 CK/CKMB % Calc 1.6 % (<4) 01/29/17 01:30 Troponin I < 0.02 ng/mL (0-1.5) 01/29/17 01:30 Total Protein 6.3 g/dL (6.4-8.2) L 02/01/17 04:30 Albumin 3.2 g/dL (3.4-5.0) L 02/01/17 04:30 Globulin 3.1 g/dL (2.5-4.5) 02/01/17 04:30 Albumin/Globulin Ratio 1.0 Ratio (1.1-2.1) L 02/01/17 04:30 Triglycerides 219 mg/dL (0-150) H 01/29/17 01:30 Cholesterol 172 mg/dL (0-200) 01/29/17 01:30 LDL Cholesterol, Calc 83 mg/dL (0-100) 01/29/17 01:30 HDL Cholesterol 45 mg/dL (40-60) 01/29/17 01:30 Cholesterol/HDL Ratio 3.8 (0.0-5.0) 01/29/17 01:30 Vitamin B12 961 pg/mL (193-986) 01/28/17 17:47 Folate > 20.0 ng/mL (>8.6) 01/28/17 17:47 Specimen Type Clean catch urine 01/29/17 02:00 Urine Color Yellow (YELLOW) 01/29/17 02:00 Urine Appearance Clear (CLEAR) 01/29/17 02:00 Urine pH 5.0 (5.0 - 8.0) 01/29/17 02:00 Ur Specific [place] 1.015 (1.000-1.030) 01/29/17 02:00 Urine Protein Negative (NEGATIVE) 01/29/17 02:00 Urine Glucose (UA) Negative (NEGATIVE) 01/29/17 02:00 Urine Ketones Negative (NEGATIVE) 01/29/17 02:00 Urine Occult Blood Negative (NEGATIVE) 01/29/17 02:00 Urine Nitrite Negative (NEGATIVE) 01/29/17 02:00 Urine Bilirubin Negative (NEGATIVE) 01/29/17 02:00 Urine Urobilinogen Normal (NORMAL) 01/29/17 02:00 Ur Leukocyte Esterase Negative (NEGATIVE) 01/29/17 02:00 Urine RBC None seen /HPF (NEGATIVE) 01/29/17 02:00 Urine WBC 0-3 /HPF (NEGATIVE) 01/29/17 02:00 Ur Squamous Epith Cells Rare /HPF (NEGATIVE) 01/29/17 02:00 Urine Bacteria 2+ /HPF (NEGATIVE) 01/29/17 02:00 Urine Yeast Few /HPF (NEGATIVE) 01/29/17 02:00 Ur Culture Indicated? No/not indicated 01/29/17 02:00 Stool Description 100g,unformed,burnett 01/29/17 10:21 Stl Occult Blood (IFOB) Positive (NEGATIVE) A 01/29/17 10:21 Stool for White Cells Positive (NEGATIVE) A 01/29/17 10:21 Stl C. diff Tox B Gene Negative (NEGATIVE) 01/29/17 10:21 Stl C. diff [id number] Negative (NEGATIVE) 01/29/17 10:21 Cryptosporid parvum Ag Negative (NEGATIVE) 01/29/17 10:21 E. histolytica Antigen Negative (NEGATIVE) 01/29/17 10:21 Giardia lamblia Ag Negative (NEGATIVE) 01/29/17 10:21 Blood Type A POSITIVE 01/28/17 18:39 Antibody Screen Negative 01/28/17 18:39 Crossmatch See Detail 01/28/17 18:39 - Plan (1) GI bleed Status: Acute Qualifiers: GI bleed type/associated pathology: unspecified gastrointestinal hemorrhage type Qualified Code(s): K92.2 - Gastrointestinal hemorrhage, unspecified Plan: GI CONSULT, CONTINUE PEPCID, CONTINUE PROTONIX, CONTINUE TO MONITOR (2) Anemia Status: Acute Qualifiers: Anemia type: iron deficiency Iron deficiency anemia type: chronic blood loss Qualified Code(s): D50.0 - Iron deficiency anemia secondary to blood loss (chronic) Plan: CONTINUE TO MONITOR H&H, CONSULT GI, CONTINUE TO MONITOR PATIENT (3) Shortness of breath Status: Acute Plan: CONTINUE SUPPLEMENTAL OXYGEN, CONTINUE TO MONITOR (4) Hypertension Status: Acute Qualifiers: Hypertension type: essential hypertension Qualified Code(s): I10 - Essential (primary) hypertension Plan: CONTINUE LISINOPRIL, CONTINUE LOPRESSOR, CONTINUE TO MONITOR (5) Depression Status: Acute Qualifiers: Depression Type: major depressive disorder Major depression recurrence: recurrent Active/Remission status: remission status unspecified Qualified Code(s): F33.9 - Major depressive disorder, recurrent, unspecified Plan: CONTINUE EFFEXOR, CONTINUE TO MONITOR (6) Environmental allergies Status: Acute Plan: CONTINUE SINGULAIR, CONTINUE FLONASE, CONTINUE TO MONITOR
== END 2017-02-01 12:15 | disposition home or self-care (01) | DRG 378 ==
LOC: UNDOADMOB 15:26 → MED/SURG 15:26 → OBSVTOIN 16:52 → MED/SURG 16:52 → ICU 21:35
PROVIDERS: ADMIT Internal Medicine; ATTEND Internal Medicine
PROC: 30233N1 Transfusion of Nonautologous Red Blood Cells into Peripheral Vein, Percutaneous Approach (ICD-10-PCS; principal; 2017-01-28)
PROC: 30233N1 Transfusion of Nonautologous Red Blood Cells into Peripheral Vein, Percutaneous Approach (ICD-10-PCS; 2017-01-29)
PROC: 30233N1 Transfusion of Nonautologous Red Blood Cells into Peripheral Vein, Percutaneous Approach (ICD-10-PCS; 2017-01-29)
PROC: 30233N1 Transfusion of Nonautologous Red Blood Cells into Peripheral Vein, Percutaneous Approach (ICD-10-PCS; 2017-01-29)
DX: K92.2 Gastrointestinal hemorrhage, unspecified (principal); D50.0 Iron deficiency anemia secondary to blood loss (chronic); R06.02 Shortness of breath; R07.89 Other chest pain; F33.8 Other recurrent depressive disorders; R19.5 Other fecal abnormalities; I20.8 Other forms of angina pectoris; I10 Essential (primary) hypertension; R09.02 Hypoxemia; E78.2 Mixed hyperlipidemia; R53.1 Weakness; Z91.09 Other allergy status, other than to drugs and biological substances
CPT/HCPCS: 36415; 36430; 71010; 80048; 80053; 80061; 81001; 82270; 82550; 82553; 82607; 82728; 82746; 83540; 83550; 83630; 83735; 84466; 84484; 85014; 85018; 85025; 85045; 85610; 85730; 86850; 86900; 86901; 86922; 87045; 87328; 87329; 87336; 87427; 87493; 87899; 93005; 94760; A4216; A4222; C9113; P9016; J2405

== ENCOUNTER → 2017-02-23 | Outpatient (CLI) | payer OTHER, BC ==
[2017-02-01 11:25] VITALS: BP 184/79
--- NOTE | 2017-02-23 14:30 | RAD ---
HISTORY: Lumbago Study: Four-views the lumbar spine Comparison: MRI lumbar spine performed on June 10, 2016 Findings: Images again demonstrate a compression deformity of the T12 vertebral body which was also demonstrate d on previous exam and does not appear to have significantly changed. Otherwise the lumbar vertebral body heights are relatively maintained with compared to previous exam. Degenerate facet changes are s een throughout the lumbar spine. Multilevel intervertebral disc space narrowing and osteophytosis are demonstrated as well. Atherosclerotic changes are seen within the visualized aorta. IMPRESSION: Remote compression deformity of the T12 vertebral body as noted above. Multilevel degenerative changes as noted above. Reported By:
== END | disposition home or self-care (01) | DRG 552 ==
LOC: RAD 11:12
PROVIDERS: ATTEND Neurological Surgery
DX: M54.5 Low back pain (principal); M51.34 Other intervertebral disc degeneration, thoracic region
CPT/HCPCS: 72110

== ENCOUNTER → 2017-03-09 | Outpatient (CLI) | payer OTHER, BC ==
[2017-03-09 15:25] LABS: BASOPHILS # (AUTO) 0.1 X10^3/uL (0.0-0.1); EOSINOPHILS # (AUTO) 0.3 x10^3/uL (0.0-0.2); EOSINOPHILS % (AUTO) 4.1 % (0.9-2.9); HEMATOCRIT 36.3 % (36.0-47.0); HEMOGLOBIN 12.2 g/dL (12.0-16.0); LYMPHOCYTES % (AUTO) 16.1 % (21.0-51.0); MEAN CORPUSCULAR HEMOGLOBIN 25.8 pg (27.0-34.0); MEAN CORPUSCULAR HGB CONC 33.5 g/dL (33.0-35.0); MEAN CORPUSCULAR VOLUME 76.9 fL (80.0-100.0); MEAN PLATELET VOLUME 8.7 fL (7.4-11.0); MONOCYTES # (AUTO) 0.4 x10^3/uL (0.3-0.8); MONOCYTES % (AUTO) 6.8 % (0.0-13.0); NEUTROPHILS # (AUTO) 4.6 x10^3/uL (2.2-4.8); PLATELET COUNT 277 X10^3/uL (150.0-450.0); RED BLOOD COUNT 4.72 X10^6/uL (3.5-5.4); RED CELL DISTRIBUTION WIDTH 27.2 % (11.6-16.5); WHITE BLOOD COUNT 6.4 X10^3/uL (3.6-10.0)
[2017-03-09 15:39] LABS: GIANT PLATELET RARE
[2017-03-09 15:40] LABS: ANISOCYTOSIS 3+; PLATELET MORPHOLOGY COMMENT ABNORMAL (NORMAL)
[2017-03-09 15:44] LABS: HYPOCHROMASIA SLIGHT
[2017-03-09 15:45] LABS: MICROCYTOSIS SLIGHT
== END ==
LOC: LAB 15:06
PROVIDERS: ATTEND Internal Medicine Gastroenterology
DX: D50.8 Other iron deficiency anemias (principal)
CPT/HCPCS: 36415; 85025

== ENCOUNTER → 2017-04-02 | Outpatient (CLI) | payer OTHER, BC ==
[2017-04-02 14:13] LABS: BASOPHILS # (AUTO) 0.1 X10^3/uL (0.0-0.1); BASOPHILS % (AUTO) 1.2 % (0.2-1.0); EOSINOPHILS # (AUTO) 0.2 x10^3/uL (0.0-0.2); EOSINOPHILS % (AUTO) 4.2 % (0.9-2.9); LYMPHOCYTES # (AUTO) 1.2 X10^3/uL (1.3-2.9); LYMPHOCYTES % (AUTO) 24.8 % (21.0-51.0); MEAN CORPUSCULAR HEMOGLOBIN 26.7 pg (27.0-34.0); MEAN CORPUSCULAR HGB CONC 33.3 g/dL (33.0-35.0); MEAN CORPUSCULAR VOLUME 80.2 fL (80.0-100.0); MEAN PLATELET VOLUME 8.5 fL (7.4-11.0); MONOCYTES # (AUTO) 0.5 x10^3/uL (0.3-0.8); MONOCYTES % (AUTO) 9.9 % (0.0-13.0); NEUTROPHILS % (AUTO) 59.9 % (42.0-75.0); PLATELET COUNT 262 X10^3/uL (150.0-450.0); RED BLOOD COUNT 4.49 X10^6/uL (3.5-5.4); RED CELL DISTRIBUTION WIDTH 27.1 % (11.6-16.5)
[2017-04-02 14:19] LABS: PLATELET MORPHOLOGY COMMENT NORMAL (NORMAL)
[2017-04-02 14:54] LABS: ANISOCYTOSIS 3+; HYPOCHROMASIA SLIGHT; MICROCYTOSIS SLIGHT; POIKILOCYTOSIS 1+
== END ==
LOC: LAB 13:50
PROVIDERS: ATTEND Internal Medicine Gastroenterology
DX: D50.8 Other iron deficiency anemias (principal)
CPT/HCPCS: 36415; 85025

== ENCOUNTER → 2017-06-08 | Outpatient (CLI) | payer OTHER, BC ==
[2017-06-08 10:32] LABS: BASOPHILS # (AUTO) 0.1 X10^3/uL (0.0-0.1); BASOPHILS % (AUTO) 1.2 % (0.2-1.0); EOSINOPHILS # (AUTO) 0.1 x10^3/uL (0.0-0.2); EOSINOPHILS % (AUTO) 2.5 % (0.9-2.9); HEMATOCRIT 36.5 % (36.0-47.0); HEMOGLOBIN 12.4 g/dL (12.0-16.0); LYMPHOCYTES # (AUTO) 1.2 X10^3/uL (1.3-2.9); LYMPHOCYTES % (AUTO) 23.9 % (21.0-51.0); MEAN CORPUSCULAR HEMOGLOBIN 28.9 pg (27.0-34.0); MEAN CORPUSCULAR HGB CONC 33.9 g/dL (33.0-35.0); MEAN CORPUSCULAR VOLUME 85.2 fL (80.0-100.0); MEAN PLATELET VOLUME 8.5 fL (7.4-11.0); MONOCYTES # (AUTO) 0.5 x10^3/uL (0.3-0.8); MONOCYTES % (AUTO) 10.2 % (0.0-13.0); NEUTROPHILS # (AUTO) 3.1 x10^3/uL (2.2-4.8); NEUTROPHILS % (AUTO) 62.2 % (42.0-75.0); PLATELET COUNT 263 X10^3/uL (150.0-450.0); RED BLOOD COUNT 4.28 X10^6/uL (3.5-5.4); RED CELL DISTRIBUTION WIDTH 14.5 % (11.6-16.5)
[2017-06-08 11:20] LABS: ALANINE AMINOTRANSFERASE 16 Units/L (12-78); ALBUMIN 3.9 g/dL (3.4-5.0); ALKALINE PHOSPHATASE 81 Units/L (46-116); ASPARTATE AMINO TRANSFERASE 18 Units/L (15-37); BLOOD UREA NITROGEN 25 mg/dL (7-18); CALCIUM 9.2 mg/dL (8.5-10.1); CHLORIDE 105 mmol/L (98-107); COR NA(FOR HYPERGLY) 144 mmol/L (136-145); CREATININE 1.36 mg/dL (0.55-1.02); SODIUM 143 mmol/L (136-145); TOTAL PROTEIN 7.7 g/dL (6.4-8.2); eGFR BLACK RACES 48 (>60); eGFR NON BLACK RACES 40 (>60)
[2017-06-08 13:05] LABS: STOOL FOR WBC POSITIVE (NEGATIVE)
[2017-06-08 13:10] LABS: CRYPTOSPORIDIUM PARVUM ANTIGEN NEGATIVE (NEGATIVE); GIARDIA LAMBLIA ANTIGEN NEGATIVE (NEGATIVE)
== END ==
LOC: LAB 09:53
PROVIDERS: ATTEND Internal Medicine Gastroenterology
DX: D50.8 Other iron deficiency anemias (principal); R10.31 Right lower quadrant pain; R10.32 Left lower quadrant pain; R19.5 Other fecal abnormalities
CPT/HCPCS: 36415; 80053; 82274; 82705; 83630; 85025; 87045; 87328; 87329; 87336; 87427; 87449; 87493

== ENCOUNTER → 2017-06-10 | Outpatient (CLI) | payer OTHER, BC ==
--- NOTE | 2017-06-10 11:10 | CT ---
HISTORY: Low back pain, skin carcinoma Study: CT abdomen and pelvis without contrast Comparison: June 10, 2016 and July 24, 2017 Technique: Multiple axial images of the abdomen and pelvis were obtained from the lung bases to the pubic symphysis without the administration of IV contrast. AEC was utilized. Findings: There is a moderate size hiatal hernia. Coronary and aortic atherosclerosis is noted. There is a smal l mesenteric fat containing umbilical hernia. There is a 1-2 mm nodule along the lateral segment righ t middle lobe abutting the major fissure most likely reflecting a small intrafissural lymph node. In a high risk patient, 1 year follow-up dedicated CT chest without contrast would be recommended. Othe rwise, no additional evaluation is necessary. Multifocal basilar pleuro parenchymal scarring is noted . The liver, spleen, pancreas, and adrenal glands are unremarkable. Stones are noted within the gallb ladder. Bilateral parapelvic renal cysts are noted. There is no nephrolithiasis, ureterolithiasis, or obstructive uropathy. No significant mesenteric or retroperitoneal lymphadenopathy or stranding can be observed. No free fluid or free air is seen within the abdomen. There is descending and sigmoid colonic diverticulosis without focal pericolonic inflammation. The urinary bladder is grossly unrem arkable. There is advanced lumbar spondylosis with multilevel spondylolisthesis and mild degenerativ e levoscoliosis. No destructive osseous lesions are seen. No acute osseous injury is identified. A ch ronic T12 compression fracture is noted. IMPRESSION: Uncomplicated diverticulosis. Bilateral parapelvic renal cysts. Cholelithiasis. Advanced lumbar spondylosis with multilevel spondylolisthesis and mild scoliosis. Chronic T12 kuldeep sandro fracture. Other incidental findings as detailed above. Reported By:
== END | disposition home or self-care (01) | DRG 392 ==
LOC: RAD 09:20
PROVIDERS: ATTEND Internal Medicine Gastroenterology
DX: R10.30 Lower abdominal pain, unspecified (principal); Q61.02 Congenital multiple renal cysts; M48.54XA Collapsed vertebra, not elsewhere classified, thoracic region, initial encounter for fracture; K59.1 Functional diarrhea; K57.90 Diverticulosis of intestine, part unspecified, without perforation or abscess without bleeding; K80.80 Other cholelithiasis without obstruction; M47.896 Other spondylosis, lumbar region
CPT/HCPCS: 74176

== ENCOUNTER 2020-10-11 14:24 | Inpatient (IN) ==
--- NOTE | 2020-10-11 14:45 | DR.EXTPAIN ---
HPI Time seen Time Seen by Provider: 10/11/20 14:45 PCP Primary Care Physician: [facility] Complaint/Symptoms Chief Complaint:: Pt states she has felt weak for several weeks. She states she fell last night and today. She states " My tail hurts where I hit the floor." EMS reports family states pt has had periods of confusion at times. Pt aao x 4 at present. COVID-19 Coronavirus risk:travel/contact w/high risk person: No Has patient experienced Coronavirus symptoms: No Source History Provided: Patient and EMS Mode of arrival Mode of Arrival: Stretcher Timing Onset of Chief Complaint: 10/11/20 PMH PMH Past Medical History: Yes Past Medical History: GERD and Hypertension Past Surgical History: No Family History History of Family Medical Conditions: Yes Family Medical History: [place] and Hypertension Social History Does patient currently use any type of tobacco product: No Have you used tobacco products in the last 12 months: No Type of Tobacco Use: None Does any household member use tobacco: No Alcohol Use: None Do you use any recreational Drugs:: No Lives With: Family Lives Where: Home Travel Risk Coronavirus risk:travel/contact w/high risk person: No Has patient experienced Coronavirus symptoms: No Infectious screening In the last 2 months have you had wt loss of >10#?: NO Have you had fever, night sweats or hemotysis?: No Have you traveled outside the country in the last 6 months?: No Isolation: Standard PE Vital Signs Vitals: Temperature 97.8 F Pulse Rate 61 Respiratory Rate 16 Blood Pressure [Right Arm] 184/79 Blood Pressure 117/57 O2 Sat by Pulse Oximetry 95 ROR Labs Reviewed Result Diagrams: 10/11/20 16:20 10/11/20 16:20 Laboratory: WBC 9.4 X10^3/uL (3.6-10.0) 10/11/20 16:20 RBC 4.17 X10^6/uL (3.5-5.4) 10/11/20 16:20 Hgb 13.0 g/dL (12.0-16.0) 10/11/20 16:20 Hct 38.6 % (36.0-47.0) 10/11/20 16:20 MCV 92.7 fL (80.0-100.0) 10/11/20 16:20 MCH 31.2 pg (27.0-34.0) 10/11/20 16:20 MCHC 33.7 g/dL (33.0-35.0) 10/11/20 16:20 RDW 13.8 % (11.6-16.5) 10/11/20 16:20 Plt Count 187 X10^3/uL (150.0-450.0) 10/11/20 16:20 MPV 9.2 fL (7.4-11.0) 10/11/20 16:20 Neut % (Auto) 79.5 % (42.0-75.0) H 10/11/20 16:20 Lymph % (Auto) 11.5 % (21.0-51.0) L 10/11/20 16:20 Edgar % (Auto) 6.8 % (0.0-13.0) 10/11/20 16:20 Eos % (Auto) 1.8 % (0.9-2.9) 10/11/20 16:20 Baso % (Auto) 0.4 % (0.2-1.0) 10/11/20 16:20 Neut # (Auto) 7.5 x10^3/uL (2.2-4.8) H 10/11/20 16:20 Lymph # (Auto) 1.1 X10^3/uL (1.3-2.9) L 10/11/20 16:20 Edgar # (Auto) 0.6 x10^3/uL (0.3-0.8) 10/11/20 16:20 Eos # (Auto) 0.2 x10^3/uL (0.0-0.2) 10/11/20 16:20 Baso # (Auto) 0.0 X10^3/uL (0.0-0.1) 10/11/20 16:20 Absolute Nucleated RBC 0.0 /100WBC 10/11/20 16:20 Sodium 137 mmol/L (136-145) 10/11/20 16:20 Corrected Sodium TNP 10/11/20 16:20 Potassium 4.6 mmol/L (3.5-5.1) 10/11/20 16:20 Chloride 104 mmol/L (98-107) 10/11/20 16:20 Carbon Dioxide 23.0 mmol/L (21-32) 10/11/20 16:20 BUN 55 mg/dL (7-18) H 10/11/20 16:20 Creatinine 4.19 mg/dL (0.55-1.02) H 10/11/20 16:20 Est GFR (MDRD) Af Amer 13 (>60) L 10/11/20 16:20 Est GFR (MDRD) Non-Af 11 (>60) L 10/11/20 16:20 Glucose 109 mg/dL (65-99) H 10/11/20 16:20 Calcium 8.9 mg/dL (8.5-10.1) 10/11/20 16:20 Corrected Calcium TNP 10/11/20 16:20 Total Bilirubin 0.30 mg/dL (0.2-1.0) 10/11/20 16:20 AST 21 Units/L (15-37) 10/11/20 16:20 ALT 17 Units/L (12-78) 10/11/20 16:20 Alkaline Phosphatase 67 Units/L (46-116) 10/11/20 16:20 Creatine Kinase 106 Units/L (26-192) 10/11/20 16:20 CK-MB (CK-2) 1.8 ng/mL (0-4.0) 10/11/20 16:20 CK/CKMB % Calc 1.7 % (<4) 10/11/20 16:20 Troponin I < 0.02 ng/mL (0-1.5) 10/11/20 16:20 Total Protein 6.9 g/dL (6.4-8.2) 10/11/20 16:20 Albumin 3.4 g/dL (3.4-5.0) 10/11/20 16:20 Globulin 3.5 g/dL (2.5-4.5) 10/11/20 16:20 Albumin/Globulin Ratio 1.0 Ratio (1.1-2.1) L 10/11/20 16:20 Specimen Type Clean catch urine 10/11/20 19:26 Urine Color Yellow (YELLOW) 10/11/20 19:26 Urine Appearance Clear (CLEAR) 10/11/20 19:26 Urine pH 5.0 (5.0 - 8.0) 10/11/20 19: Ur Specific [place] 1.015 (1.000-1.030) 10/11/20 19:26 Urine Protein Negative (NEGATIVE) 10/11/20 19:26 Urine Glucose (UA) Negative (NEGATIVE) 10/11/20 19:26 Urine Ketones Negative (NEGATIVE) 10/11/20 19:26 Urine Occult Blood Negative (NEGATIVE) 10/11/20 19:26 Urine Nitrite Negative (NEGATIVE) 10/11/20 19:26 Urine Bilirubin Negative (NEGATIVE) 10/11/20 19:26 Urine Urobilinogen Normal (NORMAL) 10/11/20 19:26 Ur Leukocyte Esterase 1+ (NEGATIVE) 10/11/20 19:26 Urine RBC None seen /HPF (0-3) 10/11/20 19:26 Urine WBC 0-2 /HPF (0-5) 10/11/20 19:26 Ur Squamous Epith Cells Moderate /HPF (NEGATIVE) 10/11/20 19:26 Urine Bacteria Trace /HPF (NEGATIVE) 10/11/20 19:26 Urine Yeast Moderate /HPF (NEGATIVE) 10/11/20 19:26 Ur Culture Indicated? No/not indicated 10/11/20 19:26 SARS CoV-2 RNA Rapid VIOLETA Negative (NEGATIVE) 10/11/20 20:08 Opioid Opioid Risk Tool Age (David box if 16-45): No History of Preadolescent Sexual Abuse: No Total: 0 Total Score Risk Category: Low Risk Copyright: Dony FERMIN predicting aberrant behaviors Diagnosis Discharge Problem: Acute dehydration, Generalized weakness, Dizziness Acute renal failure (ARF) Qualifiers: Acute renal failure type: unspecified Qualified Code(s): N17.9 - Acute kidney failure, unspecified Instructions Forms: Precautions for COVID19 Patient Portal Social Distancing
[2020-10-11 16:32] LABS: BASOPHILS % (AUTO) 0.4 % (0.2-1.0); EOSINOPHILS # (AUTO) 0.2 x10^3/uL (0.0-0.2); EOSINOPHILS % (AUTO) 1.8 % (0.9-2.9); HEMATOCRIT 38.6 % (36.0-47.0); LYMPHOCYTES # (AUTO) 1.1 X10^3/uL (1.3-2.9); LYMPHOCYTES % (AUTO) 11.5 % (21.0-51.0); MEAN CORPUSCULAR HEMOGLOBIN 31.2 pg (27.0-34.0); MEAN CORPUSCULAR HGB CONC 33.7 g/dL (33.0-35.0); MEAN CORPUSCULAR VOLUME 92.7 fL (80.0-100.0); MEAN PLATELET VOLUME 9.2 fL (7.4-11.0); MONOCYTES # (AUTO) 0.6 x10^3/uL (0.3-0.8); MONOCYTES % (AUTO) 6.8 % (0.0-13.0); NEUTROPHILS # (AUTO) 7.5 x10^3/uL (2.2-4.8); NEUTROPHILS % (AUTO) 79.5 % (42.0-75.0); PLATELET COUNT 187 X10^3/uL (150.0-450.0); RED BLOOD COUNT 4.17 X10^6/uL (3.5-5.4); RED CELL DISTRIBUTION WIDTH 13.8 % (11.6-16.5); WHITE BLOOD COUNT 9.4 X10^3/uL (3.6-10.0)
--- NOTE | 2020-10-11 17:01 | CT ---
HISTORYWeakness. Status post fall.STUDYHEAD (TRAUMA)COMPARISONNone available.TECHNIQUEAxial non-contrast images of the head were obtained with coronal and sagittal reformats provided.Radiation dose: 1223.30 mGy-cm total DLPFINDINGSNo abnormal areas of acute attenuation in the brain parenchyma.Regalado-white differentiation remains intact.No intracranial, extra-axial, fluid collection.No hemorrhage.Periventricular chronic microvascular disease.No mass, mass effect or midline shift.Age related brain parenchymal global atrophy.No ventriculomegaly.No acute fracture.Sinuses are well aerated.Mastoid air cells are well aerated.Globes and intra-orbital contents are unremarkable.IMPRESSIONNo acute intracranial abnormality identified.Electronically signed by: James Casillas (Oct 11, 2020 16:58:32)
--- NOTE | 2020-10-11 17:06 | RAD ---
HISTORYstates she has felt weak for several weeks. She states she fell last night and today. She states " My tail hurts where I hit the floor." pt has had periods of confusion at times.STUDYCHEST, 1 VIEWCOMPARISONNoneFINDINGSThe cardiomediastinal silhouette is widened. The lungs are clear without evidence of airspace disease or effusion. No pneumothorax. The bony thorax appears intact.IMPRESSIONCardiomegaly without acute cardiopulmonary disease.Electronically signed by: ELISSA AUGUSTINE (Oct 11, 2020 17:04:08)
--- NOTE | 2020-10-11 17:20 | RAD ---
HISTORYstates she has felt weak for several weeks. She states she fell last night and today. She states " My tail hurts where I hit the floor." pt has had periods of confusion at times.STUDYSACRUM COCCYXCOMPARISONPlain films of the lumbar spine same dayFINDINGSNo acute cortical disruption can be observed. The visualized portions of the SI joint on the right and left are unremarkable. The visualized portions of the pelvis are normal as well.IMPRESSIONNo acute fracture.Electronically signed by: ELISSA AUGUSTINE (Oct 11, 2020 17:18:14)
--- NOTE | 2020-10-11 17:20 | RAD ---
Lumbar spine three viewsIndication: Pain after fall.FINDINGSThere is spine DJD with curved to the left. SI joint DJD noted. Vascular plaque noted.There is mild wedging of L1 and significant wedging at T12, potentially chronic, but acute injury cannot be excluded. However, prior report without images available from 02/23/2017 suggested T12 vertebral body wedging was present on the prior.Facet arthropathy is seen caudally.IMPRESSIONSpine DJD, with old wedge compression deformity at T12, reported on prior studies. However, if there is point tenderness, acute injury is not entirely excluded in the correct clinical setting. Multilevel DJD. Vascular plaque.Electronically signed by: CRISTOBAL CAMPOS (Oct 11, 2020 17:19:04)
[2020-10-11 17:37] LABS: ALANINE AMINOTRANSFERASE 17 Units/L (12-78); ALBUMIN 3.4 g/dL (3.4-5.0); ALKALINE PHOSPHATASE 67 Units/L (46-116); ASPARTATE AMINO TRANSFERASE 21 Units/L (15-37); BLOOD UREA NITROGEN 55 mg/dL (7-18); CALCIUM 8.9 mg/dL (8.5-10.1); CHLORIDE 104 mmol/L (98-107); CKMB % 1.7 % (<4); CREATINE KINASE 106 Units/L (26-192); CREATINE KINASE MB 1.8 ng/mL (0-4.0); CREATININE 4.19 mg/dL (0.55-1.02); SODIUM 137 mmol/L (136-145); TOTAL PROTEIN 6.9 g/dL (6.4-8.2); TROPONIN I < 0.02 ng/mL (0-1.5); eGFR NON BLACK RACES 11 (>60)
[2020-10-11 19:38] LABS: BILIRUBIN,URINE NEGATIVE (NEGATIVE); BLOOD/HEMOGLOBIN,URINE NEGATIVE (NEGATIVE); GLUCOSE, URINE NEGATIVE (NEGATIVE); KETONES,URINE NEGATIVE (NEGATIVE); LEUKOCYTE ESTERASE ,URINE 1+ (NEGATIVE); NITRITES,URINE NEGATIVE (NEGATIVE); PROTEIN,URINE NEGATIVE (NEGATIVE); UROBILINOGEN,URINE NORMAL (NORMAL)
[2020-10-11 19:47] LABS: APPEARANCE,URINE CLEAR (CLEAR); COLOR,URINE YELLOW (YELLOW)
[2020-10-11 19:48] LABS: BACTERIA,URINE TRACE /HPF (NEGATIVE); RBC,URINE NONE SEEN /HPF (0-3); SQUAMOUS EPITHELIAL CELL,UR MODERATE /HPF (NEGATIVE)
[2020-10-11 19:49] LABS: YEAST,URINE MODERATE /HPF (NEGATIVE)
[2020-10-12 01:35] LABS: CKMB % 1.8 % (<4); CREATINE KINASE 95 Units/L (26-192); CREATINE KINASE MB 1.7 ng/mL (0-4.0); TROPONIN I < 0.02 ng/mL (0-1.5)
[2020-10-12] MEDS: CRESTOR TAB 10 MG PO SCH ×2 (01:42→21:12)
[2020-10-12] MEDS: NS 1000 ML 1,000 ML IV SCH ×2 (01:44→14:50)
[2020-10-12 02:21] VITALS: BMI 24.7
[2020-10-12 07:05] LABS: BASOPHILS % (AUTO) 0.4 % (0.2-1.0); EOSINOPHILS # (AUTO) 0.1 x10^3/uL (0.0-0.2); EOSINOPHILS % (AUTO) 1.6 % (0.9-2.9); HEMOGLOBIN 12.2 g/dL (12.0-16.0); LYMPHOCYTES % (AUTO) 14.2 % (21.0-51.0); MEAN CORPUSCULAR VOLUME 91.2 fL (80.0-100.0); MEAN PLATELET VOLUME 9.2 fL (7.4-11.0); MONOCYTES # (AUTO) 0.5 x10^3/uL (0.3-0.8); MONOCYTES % (AUTO) 7.7 % (0.0-13.0); NEUTROPHILS # (AUTO) 5.3 x10^3/uL (2.2-4.8); NEUTROPHILS % (AUTO) 76.1 % (42.0-75.0); PLATELET COUNT 217 X10^3/uL (150.0-450.0); RED BLOOD COUNT 3.94 X10^6/uL (3.5-5.4); RED CELL DISTRIBUTION WIDTH 13.9 % (11.6-16.5); WHITE BLOOD COUNT 6.9 X10^3/uL (3.6-10.0)
[2020-10-12 07:36] LABS: ALANINE AMINOTRANSFERASE 17 Units/L (12-78); ALBUMIN 3.2 g/dL (3.4-5.0); ALKALINE PHOSPHATASE 64 Units/L (46-116); ASPARTATE AMINO TRANSFERASE 17 Units/L (15-37); BLOOD UREA NITROGEN 47 mg/dL (7-18); CALCIUM 8.8 mg/dL (8.5-10.1); CARBON DIOXIDE 25.2 mmol/L (21-32); CHLORIDE 107 mmol/L (98-107); COR CA(FOR HYPOALB) 9.4 mg/dL (8.5-10.1); CREATINE KINASE 76 Units/L (26-192); CREATINE KINASE MB 1.5 ng/mL (0-4.0); CREATININE 2.77 mg/dL (0.55-1.02); MAGNESIUM 2.4 mg/dL (1.7-2.9); SODIUM 143 mmol/L (136-145); TOTAL PROTEIN 6.7 g/dL (6.4-8.2); TROPONIN I < 0.02 ng/mL (0-1.5); eGFR NON BLACK RACES 17 (>60)
[2020-10-12] MEDS ORDERED: PEPCID TAB 40 MG PO SCH (09:00)
[2020-10-12] MEDS ORDERED: PATIENT'S HOME MEDICATION (Meloxicam 7.5 mg Tablet) PO SCH (09:00)
[2020-10-12] MEDS ORDERED: PATIENT'S HOME MEDICATION (Aspirin 81 mg Tablet) PO SCH (09:00)
--- NOTE | 2020-10-12 10:42 | DR.H&P ---
H&P - History & Physical for Day of: H&P Date: 10/11/20 - Chief Complaint Chief Complaint: FALL, PAIN TO "TAIL BONE" - History of Present Illness History of Present Illness: Pt is 80WF, states she has felt weak for several weeks. She states she fell last night and today. She states " My tail hurts where I hit the floor." EMS reports family states pt has had periods of confusion at times. Pt has pmh of htn. Pt Er labs revealed dehydration, renal failure and t12 compression fracture. Plan to admit and treat for acute illness. - Past Medical History Past Medical History: Hypertension, GERD - Past Surgical History Surgical History: No History - Family History Family Medical History: [place], Hypertension - Social History Does patient currently use any type of tobacco product: No Have you used tobacco products in the last 12 months: No Type of Tobacco Use: None Does any household member use tobacco: No Alcohol Use: None Drug Use: None - Medications Home Medications: iron Allergy (Verified 01/28/17 17:35) CONTINUE taking the following medications amlodipine 5 mg PO DAILY 10/11/20 [History] aspirin 81 mg PO DAILY 10/11/20 [History] cetirizine 10 mg PO DAILY 10/11/20 [History] indapamide 1.25 mg PO QHS 10/11/20 [History] indapamide 2.5 mg PO QAM 10/11/20 [History] meloxicam 7.5 mg PO DAILY 10/11/20 [History] omeprazole 40 mg PO BID 10/11/20 [History] rosuvastatin 10 mg PO QHS 10/11/20 [History] - Review of Systems Constitutional: Weakness Eyes: No Symptoms Reported ENT: No Symptoms Reported Respiratory: No Symptoms Reported Cardiovascular: No Symptoms Reported Gastrointestinal: No Symptoms Reported Genitourinary: No Symptoms Reported Musculoskeletal: Back Pain, Leg Pain Skin: Bruising Neurological: Weakness - Physical Exam Vital Signs: Temperature 98.1 F Pulse Rate [Radial] 72 Pulse Rate 61 Respiratory Rate 20 Blood Pressure [Right Arm] 161/69 Blood Pressure 117/57 O2 Sat by Pulse Oximetry 97 Oriented: Normal Eyes: Normal, Diplopia Ear: Normal Nose: Normal Throat: Dry Respiratory: RLL Diminished, LLL Diminished Cardiovascular: Normal : Normal Auscultation: Bowel Sounds: Normal Palpation: Normal Tenderness: Normal Skin: Decreased Turgur Musculoskeletal: Back:Thoracic, Back:Lumbar Psychiatric: Normal Mood Description: Calm Speech Pattern: Clear, Appropriate - Assessment/Plan (1) Acute renal failure (ARF) Qualifiers: Acute renal failure type: unspecified Qualified Code(s): N17.9 - Acute kidney failure, unspecified Status: Acute Plan: ADMIT, GENTLE IV HYDRATION. STRICT I&OS, PAIN CONTROL. CARDIAC MONITORING, CT HEAD IN ER. CXR IN ER. VERIFY HOME MEDICATION. AM LABS. (2) T12 compression fracture Status: Acute (3) Hypertension Status: Acute (4) Acute dehydration Status: Acute (5) Generalized weakness Status: Acute - Allergies Allergies/Adverse Reactions: Allergies Allergy/AdvReac Type Severity Reaction Status Date / Time iron Allergy Verified 01/28/17 17:35
[2020-10-12] MEDS: ASPIRIN 81 MG CHEWTAB PO SCH (11:05)
[2020-10-12] MEDS: MOBIC TAB 15 MG PO SCH (11:11)
[2020-10-12] MEDS: PEPCID TAB 20 MG PO SCH (11:12)
[2020-10-12] MEDS: NORVASC TAB 5 MG PO SCH (11:12)
[2020-10-12] MEDS: SINGULAIR TAB 10 MG PO SCH (11:14)
[2020-10-12] MEDS: PriLOSEC PO SCH ×2 (11:14→21:14)
[2020-10-12] MEDS: ZESTRIL TAB 20 MG PO SCH ×3 (11:14→21:16)
[2020-10-12] MEDS: ZyrTEC TAB 10 MG PO SCH (11:15)
[2020-10-12] MEDS: EFFEXOR XR 37.5 MG CAP 24-HR PO SCH (11:37)
[2020-10-12] MEDS: ZESTRIL TAB 20 MG ONE (14:19)
[2020-10-12] MEDS ORDERED: ZESTRIL TAB 20 MG ONE (20:02)
[2020-10-12] MEDS ORDERED: NEURONTIN CAP 300 MG PO SCH (21:00)
[2020-10-12] MEDS ORDERED: ZANAFLEX PO SCH (21:00)
[2020-10-13] MEDS: NS 1000 ML 1,000 ML IV SCH ×3 (00:42→16:32)
[2020-10-13] MEDS ORDERED: ZESTRIL TAB 20 MG ONE (08:26)
[2020-10-13] MEDS: ZESTRIL TAB 20 MG PO SCH (10:04)
[2020-10-13] MEDS: ASPIRIN 81 MG CHEWTAB PO SCH (10:04)
[2020-10-13] MEDS: SINGULAIR TAB 10 MG PO SCH (10:05)
[2020-10-13] MEDS: EFFEXOR XR 37.5 MG CAP 24-HR PO SCH (10:05)
[2020-10-13] MEDS: PEPCID TAB 20 MG PO SCH (10:06)
[2020-10-13] MEDS: ZyrTEC TAB 10 MG PO SCH (10:06)
[2020-10-13] MEDS: PriLOSEC PO SCH (10:07)
[2020-10-13] MEDS: MOBIC TAB 15 MG PO SCH (10:07)
[2020-10-13] MEDS: NORVASC TAB 5 MG PO SCH (10:07)
[2020-10-13 12:27] LABS: BASOPHILS % (AUTO) 0.6 % (0.2-1.0); EOSINOPHILS # (AUTO) 0.2 x10^3/uL (0.0-0.2); HEMATOCRIT 38.6 % (36.0-47.0); HEMOGLOBIN 13.1 g/dL (12.0-16.0); LYMPHOCYTES # (AUTO) 1.2 X10^3/uL (1.3-2.9); LYMPHOCYTES % (AUTO) 21.2 % (21.0-51.0); MEAN CORPUSCULAR HEMOGLOBIN 30.9 pg (27.0-34.0); MEAN CORPUSCULAR HGB CONC 34.1 g/dL (33.0-35.0); MEAN CORPUSCULAR VOLUME 90.8 fL (80.0-100.0); MEAN PLATELET VOLUME 9.5 fL (7.4-11.0); MONOCYTES # (AUTO) 0.5 x10^3/uL (0.3-0.8); MONOCYTES % (AUTO) 8.7 % (0.0-13.0); NEUTROPHILS # (AUTO) 3.8 x10^3/uL (2.2-4.8); NEUTROPHILS % (AUTO) 65.5 % (42.0-75.0); PLATELET COUNT 238 X10^3/uL (150.0-450.0); RED BLOOD COUNT 4.25 X10^6/uL (3.5-5.4); RED CELL DISTRIBUTION WIDTH 13.9 % (11.6-16.5); WHITE BLOOD COUNT 5.8 X10^3/uL (3.6-10.0)
[2020-10-13 13:04] LABS: ALANINE AMINOTRANSFERASE 14 Units/L (12-78); ALBUMIN 3.2 g/dL (3.4-5.0); ALKALINE PHOSPHATASE 65 Units/L (46-116); ASPARTATE AMINO TRANSFERASE 17 Units/L (15-37); BLOOD UREA NITROGEN 26 mg/dL (7-18); CALCIUM 8.9 mg/dL (8.5-10.1); CHLORIDE 109 mmol/L (98-107); COR CA(FOR HYPOALB) 9.5 mg/dL (8.5-10.1); CREATININE 1.51 mg/dL (0.55-1.02); SODIUM 145 mmol/L (136-145); TOTAL PROTEIN 7.1 g/dL (6.4-8.2); eGFR NON BLACK RACES 35 (>60)
[2020-10-13 16:31] VITALS: BP 163/74
== END 2020-10-13 18:35 | disposition home health service (06) | DRG 684 ==
LOC: ER 14:24 → OBS 23:23
PROVIDERS: ADMIT Internal Medicine; ATTEND Internal Medicine
DX: M53.3 Sacrococcygeal disorders, not elsewhere classified; N17.8 Other acute kidney failure; R42 Dizziness and giddiness; W18.39XA Other fall on same level, initial encounter; Z20.822 Contact with and (suspected) exposure to COVID-19; I10 Essential (primary) hypertension; R53.1 Weakness; K21.9 Gastro-esophageal reflux disease without esophagitis; R62.7 Adult failure to thrive; E86.0 Dehydration

== ENCOUNTER 2021-10-07 21:18 | Observation (INO) ==
--- NOTE | 2021-10-07 21:37 | DR.DIZZY ---
HPI Time seen Time Seen by Provider: 10/07/21 21:37 HPI Comment HPI Comment: Brought in by EMS after daughter noted her falling asleep while she was talking to her tonight; checked pt's bp and it was "really low" per the son; several were documented in the 60s and ems was called; [facility], alert and talking; denies cp, sob, palpitations, dizziness and weakness. In going through her medications to get a list, family found that she actually has another pt's medications which were pre-packaged at the pharmacy; the daughter brought pt's meds to her this morning and she has taken all of the doses of Cristofer Vasquez Mian's medications including bp medications (total doses) isosorbide 60mg, losartan 100mg, spironolactone 25mg, furosemide 40mg, carvedilol 50mg and gabapentin 1800 mg when she should have received (total doses) amlodipine 5mg, lisinopril 20mg, indapamid 3.75mg and gabapentin 300mg. Context Stroke Symptoms: None PMH PMH Past Medical History: GERD and Hypertension Past Surgical History: No Surgical History: No History Family History Family Medical History: [place] and Hypertension Social History Do you use any recreational Drugs:: No ROS Review of Systems Constitutional: No Symptoms Reported Eyes: No Symptoms Reported ENTM: No Symptoms Reported Respiratoy: No Symptoms Reported Gastrointestinal/Abdominal: No Symptoms Reported Genitourinary: No Symptoms Reported Musculoskeletal: No Symptoms Reported Integumentary: No Symptoms Reported Hematologic/Lymphatic: No Symptoms Reported Endocrine: No Symptoms Reported Psychiatric: No Symptoms Reported PE Vital Signs Vitals: Temperature 98.3 F Pulse Rate 57 Respiratory Rate 22 Blood Pressure [Right Arm] 163/74 Blood Pressure 101/59 O2 Sat by Pulse Oximetry 97 General Limitations: No Limitations General Appearance: Alert and In No Apparent Distress Head Head Exam: Normal Inspection Eyes Eye exam: Normal Appearance ENT ENT Exam: Normal Exam, Normal Oropharynx and Normal External Ear Exam Neck Neck Exam: Normal Inspection and Full ROM Chest Chest Inspection: Normal Inspection Respiratory Respiratory Exam: Normal Lung Sounds Bilat Cardiovascular Cardiovascular Exam: Regular Rate and Normal Rhythm Abdominal Exam Abdominal Exam: Normal Inspection, Normal Bowel Sounds and Soft Rectal Rectal Exam: Deferred Extremeties Extremities Exam: Normal Inspection and Full ROM Back Back Exam: Normal Inspection and Full ROM Neurologic Neurological Exam: Alert and Oriented X3 Psychiatric Psychiatric Exam: Normal Affect and Normal Mood Skin Skin Exam: Warm, Dry, Intact and Normal Color COURSE Critical Care Notes Total Time (mins): 30 Critical Diagnosis: hypotension, bradycardia Critical Interventions: fluid resuscitation, trendelenberg admit for observation as bp remains low after fluids discussion with admitting physician ROR Labs Reviewed Laboratory Results Reviewed?: Yes Result Diagrams: 10/07/21 22:30 10/07/21 22:30 Laboratory: WBC 8.1 X10^3/uL (3.6-10.0) 10/07/21:30 RBC 3.55 X10^6/uL (3.5-5.4) 10/07/21 22: Hgb 10.7 g/dL (12.0-16.0) L 10/07/21: Hct 31.6 % (36.0-47.0) L 10/07/21: MCV 89.0 fL (80.0-100.0) 10/07/21: MCH 30.1 pg (27.0-34.0) 10/07/21: MCHC 33.8 g/dL (33.0-35.0) 10/07/21: RDW 15.2 % (11.6-16.5) 10/07/21: Plt Count 250 X10^3/uL (150.0-450.0) 10/07/21 22:30 MPV 8.6 fL (7.4-11.0) 10/07/21 22: Neut % (Auto) 79.0 % (42.0-75.0) H 10/07/21: Lymph % (Auto) 12.8 % (21.0-51.0) L 10/07/21:30 [place] % (Auto) 7.4 % (0.0-13.0) 10/07/21: Eos % (Auto) 0.4 % (0.9-2.9) L 10/07/21 22:30 Baso % (Auto) 0.4 % (0.2-1.0) 10/07/21 22:30 Neut # (Auto) 6.4 x10^3/uL (2.2-4.8) H 10/07/21 22:30 Lymph # (Auto) 1.0 X10^3/uL (1.3-2.9) L 10/07/21:30 [place] # (Auto) 0.6 x10^3/uL (0.3-0.8) 10/07/21:30 Eos # (Auto) 0.0 x10^3/uL (0.0-0.2) 10/07/21:30 Baso # (Auto) 0.0 X10^3/uL (0.0-0.1) 10/07/21:30 Absolute Nucleated RBC 0.1 /100WBC 10/07/21:30 Sodium 138 mmol/L (136-145) 10/07/21:30 Corrected Sodium 141 mmol/L (136-145) 10/07/21:30 Potassium 3.9 mmol/L (3.5-5.1) 10/07/21:30 Chloride 101 mmol/L (98-107) 10/07/21: Carbon Dioxide 26.6 mmol/L (21-32) 10/07/21:30 BUN 28 mg/dL (7-18) H 10/07/21:30 Creatinine 1.87 mg/dL (0.55-1.02) H 10/07/21:30 Est GFR (MDRD) Af Amer 33 (>60) L 10/07/21:30 Est GFR (MDRD) Non-Af 27 (>60) L 10/07/21: Glucose 218 mg/dL (65-99) H 10/07/21:30 Calcium 8.4 mg/dL (8.5-10.1) L 10/07/21:30 Corrected Calcium 9.4 mg/dL (8.5-10.1) 10/07/21:30 Total Bilirubin 0.20 mg/dL (0.2-1.0) 10/07/21:30 AST 16 Units/L (15-37) 10/07/21:30 ALT 10 Units/L (12-78) L 10/07/21 22:30 Alkaline Phosphatase 63 Units/L (46-116) 10/07/21:30 Creatine Kinase 25 Units/L (26-192) L 08/16/22 22:30 Troponin I High Sens 6.9 ng/L (4.0-60.0) 10/07/21 22:30 Total Protein 5.9 g/dL (6.4-8.2) L 10/07/21 22:30 Albumin 2.8 g/dL (3.4-5.0) L 10/07/21 22:30 Globulin 3.1 g/dL (2.5-4.5) 10/07/21 22:30 Albumin/Globulin Ratio 0.9 Ratio (1.1-2.1) L 10/07/21 22:30 Opioid Opioid Risk Tool Age (David box if 16-45): No History of Preadolescent Sexual Abuse: No Total: 0 Total Score Risk Category: Low Risk Copyright: Dony FERMIN predicting aberrant behaviors Discharge Plan Diagnosis Discharge Problem: Acute hypotension, Bradycardia, Acute dehydration, Acute renal failure (ARF) Discharge Plan Patient Disposition: ADMITTED INPATIENT Condition: Stable Prescriptions: No Action venlafaxine 37.5 MG capsule,extended release 24hr 1 tab PO DAILY Label Comments: Rx Instructions: TAKE ONE TABLET DAILY tizanidine 2 MG tablet 0.5 tab PO HS Label Comments: montelukast 10 MG tablet 1 tab PO DAILY Rx Instructions: TAKE ONE TABLET DAILY lisinopril 20 MG tablet 1 tab PO BID Label Comments: gabapentin 300 MG capsule 1 cap PO HS Label Comments: famotidine [Pepcid] 40 MG tablet 40 mg PO BID Qty: 60 3RF Rx Instructions: TAKE ONE TABLET TWICE A DAY cetirizine 10 mg Tablet 10 mg PO DAILY amlodipine 5 mg tablet 5 mg PO DAILY omeprazole 40 mg capsule,delayed release(DR/EC) 40 mg PO BID meloxicam 7.5 mg Tablet 7.5 mg PO DAILY indapamide 1.25 mg tablet 2.5 mg PO QAM aspirin 81 mg Tablet 81 mg PO DAILY rosuvastatin 10 mg tablet 10 mg PO QHS indapamide 1.25 mg tablet 1.25 mg PO QHS aspirin 81 mg Tablet,Chewable 81 mg PO DAILY 0RF famotidine 10 mg Tablet 10 mg PO QHS Qty: 30 0RF Rx Instructions: one tab at bedtime meloxicam 15 mg Tablet 7.5 mg PO DAILY 0RF Health Concerns: Post Hospitalization: new medications and changes needed to prevent readmission or further decline. Pt educated and given instructions on all concerns. Plan of Treatment: Continue with present treatment and follow up plan. Pt is to keep follow up appointment as instructed and take medications as ordered. Follow ups/Referrals Follow ups/Referrals: Rehan Dodson [Primary Care Provider] - 3 days Instructions Instructions: Bradycardia, Adult Stand Alone Forms: [facility], Patient Portal, Social Distancing
[2021-10-07 21:51] VITALS: BMI 27.4
[2021-10-07] MEDS: NS 1,000 ML IV 1,000 ML IV ONE ×2 (21:52→23:13)
[2021-10-07] MEDS ORDERED: NS 1,000 ML IV 1,000 ML ONE ×2 (21:53→23:04)
[2021-10-07 22:38] LABS: BASOPHILS % (AUTO) 0.4 % (0.2-1.0); EOSINOPHILS % (AUTO) 0.4 % (0.9-2.9); HEMATOCRIT 31.6 % (36.0-47.0); HEMOGLOBIN 10.7 g/dL (12.0-16.0); LYMPHOCYTES % (AUTO) 12.8 % (21.0-51.0); MEAN CORPUSCULAR HEMOGLOBIN 30.1 pg (27.0-34.0); MEAN CORPUSCULAR HGB CONC 33.8 g/dL (33.0-35.0); MEAN PLATELET VOLUME 8.6 fL (7.4-11.0); MONOCYTES # (AUTO) 0.6 x10^3/uL (0.3-0.8); MONOCYTES % (AUTO) 7.4 % (0.0-13.0); NEUTROPHILS # (AUTO) 6.4 x10^3/uL (2.2-4.8); RED BLOOD COUNT 3.55 X10^6/uL (3.5-5.4); RED CELL DISTRIBUTION WIDTH 15.2 % (11.6-16.5); WHITE BLOOD COUNT 8.1 X10^3/uL (3.6-10.0)
[2021-10-07 22:49] LABS: ALBUMIN 2.8 g/dL (3.4-5.0); CALCIUM 8.4 mg/dL (8.5-10.1); CARBON DIOXIDE 26.6 mmol/L (21-32); COR CA(FOR HYPOALB) 9.4 mg/dL (8.5-10.1); CREATININE 1.87 mg/dL (0.55-1.02); TOTAL PROTEIN 5.9 g/dL (6.4-8.2)
[2021-10-07] MEDS ORDERED: NS 1,000 ML IV 1,000 ML IV ONE (23:11)
[2021-10-08] MEDS ORDERED: NS 1,000 ML IV 1,000 ML ONE ×2 (00:07→09:06)
[2021-10-08] MEDS ORDERED: NS 1,000 ML IV 1,000 ML IV ONE (00:13)
[2021-10-08] MEDS: NS 1,000 ML IV 1,000 ML IV SCH ×3 (03:31→20:44)
[2021-10-08 07:27] LABS: BASOPHILS % (AUTO) 0.6 % (0.2-1.0); EOSINOPHILS # (AUTO) 0.1 x10^3/uL (0.0-0.2); HEMATOCRIT 28.5 % (36.0-47.0); HEMOGLOBIN 9.9 g/dL (12.0-16.0); LYMPHOCYTES # (AUTO) 1.3 X10^3/uL (1.3-2.9); LYMPHOCYTES % (AUTO) 18.7 % (21.0-51.0); MEAN CORPUSCULAR HEMOGLOBIN 30.7 pg (27.0-34.0); MEAN CORPUSCULAR HGB CONC 34.8 g/dL (33.0-35.0); MEAN CORPUSCULAR VOLUME 88.3 fL (80.0-100.0); MEAN PLATELET VOLUME 8.5 fL (7.4-11.0); MONOCYTES # (AUTO) 0.6 x10^3/uL (0.3-0.8); MONOCYTES % (AUTO) 8.1 % (0.0-13.0); NEUTROPHILS # (AUTO) 5.2 x10^3/uL (2.2-4.8); NEUTROPHILS % (AUTO) 71.6 % (42.0-75.0); RED BLOOD COUNT 3.22 X10^6/uL (3.5-5.4); RED CELL DISTRIBUTION WIDTH 15.3 % (11.6-16.5); WHITE BLOOD COUNT 7.2 X10^3/uL (3.6-10.0)
[2021-10-08 07:41] LABS: ALANINE AMINOTRANSFERASE 10 Units/L (12-78); ALBUMIN 2.8 g/dL (3.4-5.0); ALKALINE PHOSPHATASE 59 Units/L (46-116); ASPARTATE AMINO TRANSFERASE 15 Units/L (15-37); BLOOD UREA NITROGEN 27 mg/dL (7-18); CALCIUM 8.3 mg/dL (8.5-10.1); CHLORIDE 105 mmol/L (98-107); COR CA(FOR HYPOALB) 9.3 mg/dL (8.5-10.1); CREATININE 1.43 mg/dL (0.55-1.02); SODIUM 139 mmol/L (136-145); TOTAL PROTEIN 5.7 g/dL (6.4-8.2); eGFR NON BLACK RACES 37 (>60)
[2021-10-08] MEDS ORDERED: TYLENOL 325 MG TAB PO ONE (08:36)
[2021-10-08] MEDS: TYLENOL 325 MG TAB PO PRN ×2 (08:43→23:45)
--- NOTE | 2021-10-08 13:21 | DR.H&P ---
H&P - History & Physical for Day of: H&P Date: 10/08/21 - Chief Complaint Chief Complaint: HYPOTENSION, LETHARGY - History of Present Illness History of Present Illness: IS A 81 YEAR OLD PATIENT OF OURS. SHE PRESENTED TO THE ER VIA EMS WITH REPORTS OF HYPOTENSION AND LETHARGY. PATIENTS DAUGHTER REPORTS THAT BLOOD PRESSURES AT HOME WERE 80s/40s. HER DAUGHTER REPORTS THAT PATIENT GETS HER MEDICATIONS PRE-PACKAGED FROM THE PHARMACY. SHE HAD HER MEDICATIONS FILLED EARLIER IN THE DAY AND TOOK THEM BEFORE REALIZING THAT SHE WAS GIVEN ANOTHER PATIENTS MEDICATIONS. PATIENT TOOK THE FOLLOWING MEDICATIONS: ISOSORBID 60MG, LOSARTAN 100MG, SPIRONOLACTONE 25MG, FUROSEMIDE 40MG, CARVEDILOL 50MG, GABAPENTIN 1800MG. NONE OF THESE WERE HER MEDICATIONS. HER PMH INCLUDES GERD AND HYPERTENSION. ON ARRIVAL, PATIENT WAS NOTED TO BE ALERT AND TALKING, IN THE [place] POSITION. SHE DENIED CHEST PAIN, SOB, PALPITATIONS, DIZZINESS, OR WEAKNESS. VITALS WERE: 98.3-67-16-95%-99/50. LABS WERE OBTAINED. WBC 8.1, RBC 3.55, HGB 10.7, HCT 31.6, PLT COUNT 250, SODIUM 138, POTASSIUM 3.9, CHLORIDE 101, BUN 28, CREATININE 1.87, GLUCOSE 218, CALCIUM 8.4, TOTAL BILI 0.20, AST 16, ALT 10, ALK PHOS 63, CREATINE KINASE 25, TOTAL PROTEIN 5.9, ALBUMIN 2.8. IN THE ER, SHE WAS GIVEN NORMAL SALINE 1 LITER BOLUS X 3. SHE WAS ADMITTED TO THE HOSPITAL FOR FURTHER EVALUATION AND TREATMENT OF HYPOTENSION AND BRADYCARDIA. SHE WAS STARTED ON NORMAL SALINE AT 125 ML/HR. OTHERWISE, WE WILL FOLLOW-UP WITH AM LABS AND CONTINUE TO MONITOR. TIME SPENT ON CLINICAL ASSESSMENT, REVIWING LABS AND IMAGING, DECISION MAKING, AND DOCUMENTATION GREATER THAN 75 MINUTES. - Past Medical History Past Medical History: Hypertension, GERD - Past Surgical History Surgical History: No History - Family History Family Medical History: [place], Hypertension - Social History Does patient currently use any type of tobacco product: No Have you used tobacco products in the last 12 months: No Type of Tobacco Use: None Does any household member use tobacco: No Alcohol Use: None Drug Use: None - Medications Home Medications: iron Allergy (Verified 01/28/17 17:35) CONTINUE taking the following medications memantine 10 mg tablet 1 tab PO QHS 10/08/21 [History] primidone 50 mg tablet 1 tab PO QHS 10/08/21 [History] - Review of Systems Constitutional: Weakness Eyes: No Symptoms Reported ENT: No Symptoms Reported Respiratory: No Symptoms Reported Cardiovascular: [place] Gastrointestinal: No Symptoms Reported Genitourinary: No Symptoms Reported Musculoskeletal: No Symptoms Reported Skin: No Symptoms Reported Neurological: Weakness - Physical Exam Vital Signs: Temperature 98.3 F Pulse Rate [Right] 66 Pulse Rate 64 Respiratory Rate 20 Blood Pressure [Left Arm] 112/57 Blood Pressure [Right Arm] 163/74 Blood Pressure 112/57 O2 Sat by Pulse Oximetry 95 Oriented: Normal Eyes: Normal Ear: Normal Nose: Normal Throat: Normal Respiratory: Clear Throughout Cardiovascular: Bradycardia : Normal Auscultation: Bowel Sounds: Normal Palpation: Normal Tenderness: Normal Skin: Normal Musculoskeletal: Normal Psychiatric: Normal Mood Description: Calm Affect: Normal Speech Pattern: Clear - Assessment/Plan (1) Acute hypotension Status: Acute Plan: ADMIT, NORMAL SALINE AT 125 ML/HR, MONITOR LABS AND VITALS (2) Bradycardia Status: Acute (3) Generalized weakness Status: Acute - Allergies Allergies/Adverse Reactions: Allergies Allergy/AdvReac Type Severity Reaction Status Date / Time iron Allergy Verified 01/28/17 17:35
[2021-10-09] MEDS: NS 1,000 ML IV 1,000 ML IV SCH ×2 (03:37→04:35)
[2021-10-09 06:23] LABS: BASOPHILS % (AUTO) 0.7 % (0.2-1.0); EOSINOPHILS # (AUTO) 0.1 x10^3/uL (0.0-0.2); EOSINOPHILS % (AUTO) 1.8 % (0.9-2.9); HEMATOCRIT 29.9 % (36.0-47.0); HEMOGLOBIN 10.5 g/dL (12.0-16.0); LYMPHOCYTES # (AUTO) 1.3 X10^3/uL (1.3-2.9); LYMPHOCYTES % (AUTO) 22.7 % (21.0-51.0); MEAN CORPUSCULAR HEMOGLOBIN 30.7 pg (27.0-34.0); MEAN CORPUSCULAR HGB CONC 35.1 g/dL (33.0-35.0); MEAN CORPUSCULAR VOLUME 87.7 fL (80.0-100.0); MEAN PLATELET VOLUME 9.1 fL (7.4-11.0); MONOCYTES # (AUTO) 0.6 x10^3/uL (0.3-0.8); MONOCYTES % (AUTO) 9.5 % (0.0-13.0); NEUTROPHILS # (AUTO) 3.8 x10^3/uL (2.2-4.8); NEUTROPHILS % (AUTO) 65.3 % (42.0-75.0); RED BLOOD COUNT 3.41 X10^6/uL (3.5-5.4); WHITE BLOOD COUNT 5.8 X10^3/uL (3.6-10.0)
[2021-10-09 06:34] LABS: ALANINE AMINOTRANSFERASE 8 Units/L (12-78); ALBUMIN 2.7 g/dL (3.4-5.0); ALKALINE PHOSPHATASE 63 Units/L (46-116); ASPARTATE AMINO TRANSFERASE 16 Units/L (15-37); BLOOD UREA NITROGEN 23 mg/dL (7-18); CALCIUM 8.6 mg/dL (8.5-10.1); CARBON DIOXIDE 20.3 mmol/L (21-32); CHLORIDE 108 mmol/L (98-107); COR CA(FOR HYPOALB) 9.6 mg/dL (8.5-10.1); CREATININE 1.13 mg/dL (0.55-1.02); SODIUM 140 mmol/L (136-145); eGFR NON BLACK RACES 49 (>60)
[2021-10-09] MEDS ORDERED: POTASSIUM CHLORIDE LIQ 20 MEQ UDC PO PRN (07:00)
[2021-10-09] MEDS ORDERED: POTASSIUM CHL 60 MEQ/NS 0.45% 500 ML IV PRN (07:00)
[2021-10-09] MEDS ORDERED: K-RIDER 10 MEQ/NS 100 ML 10 MEQ/100 ML BAG IV PRN (07:00)
[2021-10-09] MEDS ORDERED: K-DUR TAB 20 MEQ PO PRN (07:00)
[2021-10-09] MEDS ORDERED: POTASSIUM CHL 40 MEQ/NS 0.45% 500 ML IV PRN (07:00)
[2021-10-09] MEDS ORDERED: KLOR-CON PO PRN (07:00)
[2021-10-09] MEDS ORDERED: MICRO K EXTEN CAP 10 MEQ PO PRN (07:00)
[2021-10-09] MEDS: MAGNESIUM SULFATE 1 GRAM/100 mL PREMIX 1 G/100 ML BAG IV PRN ×2 (08:54→10:23)
[2021-10-09 09:33] VITALS: BP 166/72
[2021-10-09] MEDS ORDERED: LOVENOX INJ 40 MG SYR SC SCH (10:00)
== END 2021-10-09 12:15 | disposition home health service (06) ==
LOC: U 21:18 → ER 21:18 → U 10-08 02:59 → MED/SURG 10-08 14:30
PROVIDERS: ADMIT Obstetrics & Gynecology Obstetrics; ATTEND Internal Medicine
DX: I95.89 Other hypotension; K21.9 Gastro-esophageal reflux disease without esophagitis; I10 Essential (primary) hypertension; R00.1 Bradycardia, unspecified; R53.1 Weakness

== ENCOUNTER 2022-06-10 15:01 | Observation (INO) ==
--- NOTE | 2022-06-10 15:05 | DR.AMS ---
HPI Time Seen Time Seen by Provider: 06/10/22 15:05 Complaint Cheif Complaint Doctors Comments: 81 y/o female brought in by EMS for evaluation. Pt fell and hit her head last pm. Was seen in the ER last night, d/c'd home. Family called EMS for confusion, slurred speech. Pt seemed appropiate with EMS. No obvious slurred speech or neuro deficits. Pt has a dull headache, between the temporal regions. Does not radiate. Has some neck discomfort with moving, having some nausea. Denies visual changes, localized weakness or numbness. PT oriented to self, her , but can't recall the year. Denies fever, URI symptoms, bowel or bladder complaints. PMH PMH Past Medical History: CHF, Dementia, Depression, Dyslipidemia, GERD and H ypertension Past Surgical History: No Surgical History: No History Family History Family Medical History: [place] and Hypertension Social History Do you use any recreational Drugs:: No ROS Review of Systems Constitutional: Weakness Eyes: No Symptoms Reported ENTM: No Symptoms Reported Respiratoy: Short of Breath (at times) Cardiovascular: No Symptoms Reported Gastrointestinal/Abdominal: No Symptoms Reported Genitourinary: No Symptoms Reported Neurological: Speech Problem Musculoskeletal: No Symptoms Reported Integumentary: No Symptoms Reported Hematologic/Lymphatic: No Symptoms Reported Psychiatric: No Symptoms Reported All Other Systems: Reviewed and Negative PE Vitals Vital Signs: Pulse Resp BP BP BP Pulse Ox O2 Del Method 06/10/22 19:15 67 24 96 06/10/22 19:00 64 20 100 06/10/22 19:00 141/68 06/10/22 18:45 65 18 91 L 06/10/22 18:30 65 17 99 06/10/22 18:30 155/70 06/10/22 18:15 65 29 H 99 06/10/22 18:01 62 15 99 06/10/22 18:01 137/69 06/10/22 18:00 62 17 100 06/10/22 17:45 63 16 99 06/10/22 17:30 64 16 99 06/10/22 17:30 149/70 06/10/22 17:15 65 14 100 06/10/22 17:00 64 16 99 06/10/22 17:00 151/67 06/10/22 16:45 66 13 98 06/10/22 16:30 64 13 99 06/10/22 16:15 65 14 98 06/10/22 16:00 66 14 99 06/10/22 15:45 67 16 98 06/10/22 15:36 165 H 87 L 06/10/22 15:15 69 16 06/10/22 15:08 69 15 93 L 06/10/22 15:10 69 23 174/82 95 Nasal Cannula 06/10/22 01:36 177/91 10/09/21 08:00 166/72 10/08/21 19:00 10/08/21 16:00 131/73 FiO2 06/10/22 19:15 06/10/22 19:00 06/10/22 19:00 06/10/22 18:45 06/10/22 18:30 06/10/22 18:30 06/10/22 18:15 06/10/22 18:01 06/10/22 18:01 06/10/22 18:00 06/10/22 17:45 06/10/22 17:30 06/10/22 17:30 06/10/22 17:15 06/10/22 17:00 06/10/22 17:00 06/10/22 16:45 06/10/22 16:30 06/10/22 16:15 06/10/22 16:00 06/10/22 15:45 06/10/22 15:36 06/10/22 15:15 06/10/22 15:08 06/10/22 15:10 06/10/22 01:36 10/09/21 08:00 10/08/21 19:00 28 10/08/21 16:00 General General Appearance: Alert and In No Apparent Distress Head Head Exam: Normal Inspection, Atraumatic and Normocephalic Eyes Eye exam: PERRL and EOMI ENT ENT Exam: Normal Oropharynx and Mucous Membranes Moist Neck Neck Exam: Normal Inspection and Other (+ mild discomfort with ROM); negative Tenderness Respiratory Respiratory Exam: Normal Lung Sounds Bilat; negative Accessory Muscle Use or Respiratory Distress Cardiovascular Cardiovascular Exam: Regular Rate, Normal Rhythm and Normal Heart Sounds Abdominal Exam Abdominal Exam: Normal Inspection, Normal Bowel Sounds and Soft; negative Tenderness Extremities Extremities Exam: Normal Inspection; negative Tenderness or Edema Neurological Neurological Exam: Alert, CN II-XII Intact and Other (oriented to , self. Can't get current year. ); negative Motor Sensory Deficit Psychological Psychiatric Exam: Normal Affect Skin Skin Exam: Warm and Dry COURSE Treatment Treatment: 81 y/o female, not doing well since fall last pm. No obvious CVA on presentation, no obvious deficit. Not slurring her speech, answers questions appropiately. Speech not as smooth as usual per family. W/u performed. Repeat head CT (from early this am) without change. CXR acceptable. CBC/CMP/troponin ok. Still awaiting urine. Gve Dr Dodson an update, he is agreeable to accepting the pt for observation admission. Probable degree of concussion. U/a without infection, 2+ bacteria, no WBCs, culture pending. Discussed with pt/family, agreeable for observation admission. ROR Labs Reviewed Laboratory Results Reviewed?: Yes Result Diagrams: 06/10/22 15:22 06/10/22 15:22 Laboratory: WBC 6.9 X10^3/uL (3.6-10.0) 06/10/22 15: RBC 4.58 X10^6/uL (3.5-5.4) 06/10/22 15:22 Hgb 13.0 g/dL (12.0-16.0) 06/10/22 15: Hct 38.7 % (36.0-47.0) 06/10/22 15: MCV 84.5 fL (80.0-100.0) 06/10/22 15:22 MCH 28.3 pg (27.0-34.0) 06/10/22 15: MCHC 33.5 g/dL (33.0-35.0) 06/10/22 15:22 RDW 17.0 % (11.6-16.5) H 06/10/22 15:22 Plt Count 244 X10^3/uL (150.0-450.0) 06/10/22 15: MPV 8.6 fL (7.4-11.0) 06/10/22 15:22 Neut % (Auto) 76.9 % (42.0-75.0) H 06/10/22 15:22 Lymph % (Auto) 15.0 % (21.0-51.0) L 06/10/22 15:22 [place] % (Auto) 5.7 % (0.0-13.0) 06/10/22 15:22 Eos % (Auto) 1.7 % (0.9-2.9) 06/10/22 15:22 Baso % (Auto) 0.7 % (0.2-1.0) 06/10/22 15:22 Neut # (Auto) 5.3 x10^3/uL (2.2-4.8) H 06/10/22 15:22 Lymph # (Auto) 1.0 X10^3/uL (1.3-2.9) L 06/10/22 15:22 [place] # (Auto) 0.4 x10^3/uL (0.3-0.8) 06/10/22 15:22 Eos # (Auto) 0.1 x10^3/uL (0.0-0.2) 06/10/22 15:22 Baso # (Auto) 0.0 X10^3/uL (0.0-0.1) 06/10/22 15:22 Absolute Nucleated RBC 0.1 /100WBC 06/10/22 15:22 Sodium 140 mmol/L (136-145) 06/10/22 15:22 Corrected Sodium 141 mmol/L (136-145) 06/10/22 15:22 Potassium 4.4 mmol/L (3.5-5.1) 06/10/22 15:22 Chloride 103 mmol/L (98-107) 06/10/22 15:22 Carbon Dioxide 29.8 mmol/L (21-32) 06/10/22 15:22 BUN 28 mg/dL (7-18) H 06/10/22 15:22 Creatinine 1.14 mg/dL (0.55-1.02) H 06/10/22 15:22 Est GFR (MDRD) Af Amer 59 (>60) 06/10/22 15:22 Est GFR (MDRD) Non-Af 48 (>60) L 06/10/22 15:22 Glucose 128 mg/dL (65-99) H 06/10/22 15:22 Calcium 9.3 mg/dL (8.5-10.1) 06/10/22 15:22 Corrected Calcium TNP 06/10/22 15:22 Total Bilirubin 0.40 mg/dL (0.2-1.0) 06/10/22 15:22 AST 18 Units/L (15-37) 06/10/22 15:22 ALT 16 Units/L (12-78) 06/10/22 15:22 Alkaline Phosphatase 90 Units/L (46-116) 06/10/22 15:22 Troponin I High Sens 7.4 ng/L (4.0-60.0) 06/10/22 15:22 Total Protein 7.2 g/dL (6.4-8.2) 06/10/22 15:22 Albumin 3.8 g/dL (3.4-5.0) 06/10/22 15:22 Globulin 3.4 g/dL (2.5-4.5) 06/10/22 15:22 Albumin/Globulin Ratio 1.1 Ratio (1.1-2.1) 06/10/22 15:22 Specimen Type Catherized urine 06/10/22 17:57 Urine Color Pale yellow (YELLOW) 06/10/22 17:57 Urine Appearance Slightly hazy (CLEAR) 06/10/22 17:57 Urine pH 5.0 (5.0 - 8.0) 06/10/22 17:57 Ur Specific [place] 1.020 (1.000-1.030) 06/10/22 17:57 Urine Protein Negative (NEGATIVE) 06/10/22 17:57 Urine Glucose (UA) Negative (NEGATIVE) 06/10/22 17:57 Urine Ketones Negative (NEGATIVE) 06/10/22 17:57 Urine Blood 1+ (NEGATIVE) 06/10/22 17:57 Urine Nitrite Negative (NEGATIVE) 06/10/22 17:57 Urine Bilirubin Negative (NEGATIVE) 06/10/22 17:57 Urine Urobilinogen Normal (NORMAL) 06/10/22 17:57 Ur Leukocyte Esterase Negative (NEGATIVE) 06/10/22 17:57 Urine RBC 0-2 /HPF (0-3) 06/10/22 17:57 Urine WBC 0-2 /HPF (0-5) 06/10/22 17:57 Ur Squamous Epith Cells Few /HPF (NEGATIVE) 06/10/22 17:57 Urine Bacteria 2+ /HPF (NEGATIVE) 06/10/22 17:57 Hyaline Casts Few /LPF (NEGATIVE) 06/10/22 17:57 Urine Mucus Few /HPF (NEGATIVE) 06/10/22 17:57 Ur Culture Indicated? Yes/culture set up 06/10/22 17:57 Labs acceptable. XRAY XRAY Interpreted by: Both X-ray Results: no acute abnormalities EKG Rate: 70 [place]: LAD Rhythm: NSR Block: RBBB (incomplete) Opioid Opioid Risk Tool Age (David box if 16-45): No History of Preadolescent Sexual Abuse: No Total: 0 Total Score Risk Category: Low Risk Copyright: [facility] predicting aberrant behaviors Discharge Plan Diagnosis Discharge Problem: Altered mental status, Concussion Discharge Plan Patient Disposition: ADMITTED INPATIENT Condition: Stable Prescriptions: No Action venlafaxine 37.5 MG capsule,extended release 24hr 37.5 tab PO DAILY Label Comments: Rx Instructions: TAKE ONE TABLET DAILY montelukast 10 MG tablet 10 mg PO DAILY Rx Instructions: TAKE ONE TABLET DAILY lisinopril 20 MG tablet 20 mg PO BID Label Comments: gabapentin 300 MG capsule 300 mg PO HS Label Comments: primidone 50 mg tablet 50 mg PO QHS memantine 10 mg tablet 10 mg PO QHS Rx Instructions: TAKE ONE TABLET BY MOUTH EVERY NIGHT DIRECTED potassium chloride 10 mEq capsule, extended release 10 meq PO QDAY furosemide 20 mg tablet 20 mg PO QDAY amlodipine 5 mg tablet 5 mg PO DAILY omeprazole 40 mg capsule,delayed release(DR/EC) 40 mg PO BID rosuvastatin 10 mg tablet 10 mg PO QHS Health Concerns: Post Hospitalization: new medications and changes needed to prevent readmission or further decline. Pt educated and given instructions on all concerns. Plan of Treatment: Continue with present treatment and follow up plan. Pt is to keep follow up appointment as instructed and take medications as ordered. Orders to Discharge Patient Discharge Orders: Transfer (Routine); Ordered 06/10/22 Ordered By: Bart Sloan Follow ups/Referrals Follow ups/Referrals: Rehan Dodson [Primary Care Provider] - 3 days
[2022-06-10] MEDS ORDERED: ZOFRAN INJ 4 MG VIAL IVP ONE (15:09)
[2022-06-10] MEDS ORDERED: ZOFRAN INJ 4 MG VIAL ONE (15:13)
--- NOTE | 2022-06-10 15:13 | EKG ---
Test Reason : er trauma Blood Pressure : */* mmHG Vent. Rate : 70 BPM Atrial Rate : 70 BPM P-R Int : 196 ms QRS Dur : 100 ms QT Int : 418 ms P-R-T Axes : 34 -41 19 degrees QTc Int : 451 ms Normal sinus rhythm Left axis deviation Incomplete right bundle branch block Moderate voltage criteria for LVH, may be normal variant ( R in aVL , David product ) Abnormal ECG No previous ECGs available Confirmed by Ruiz Fleming ([id number]) on 06/13/2022 3:28:30 PM Referred By: Confirmed By: Ruiz Fleming
[2022-06-10 15:31] LABS: BASOPHILS % (AUTO) 0.7 % (0.2-1.0); EOSINOPHILS # (AUTO) 0.1 x10^3/uL (0.0-0.2); EOSINOPHILS % (AUTO) 1.7 % (0.9-2.9); HEMATOCRIT 38.7 % (36.0-47.0); MEAN CORPUSCULAR HEMOGLOBIN 28.3 pg (27.0-34.0); MEAN CORPUSCULAR HGB CONC 33.5 g/dL (33.0-35.0); MEAN CORPUSCULAR VOLUME 84.5 fL (80.0-100.0); MEAN PLATELET VOLUME 8.6 fL (7.4-11.0); MONOCYTES # (AUTO) 0.4 x10^3/uL (0.3-0.8); MONOCYTES % (AUTO) 5.7 % (0.0-13.0); NEUTROPHILS # (AUTO) 5.3 x10^3/uL (2.2-4.8); NEUTROPHILS % (AUTO) 76.9 % (42.0-75.0); RED BLOOD COUNT 4.58 X10^6/uL (3.5-5.4); WHITE BLOOD COUNT 6.9 X10^3/uL (3.6-10.0)
[2022-06-10 15:49] LABS: ALANINE AMINOTRANSFERASE 16 Units/L (12-78); ALBUMIN 3.8 g/dL (3.4-5.0); ALKALINE PHOSPHATASE 90 Units/L (46-116); ASPARTATE AMINO TRANSFERASE 18 Units/L (15-37); BLOOD UREA NITROGEN 28 mg/dL (7-18); CALCIUM 9.3 mg/dL (8.5-10.1); CARBON DIOXIDE 29.8 mmol/L (21-32); CHLORIDE 103 mmol/L (98-107); COR NA(FOR HYPERGLY) 141 mmol/L (136-145); CREATININE 1.14 mg/dL (0.55-1.02); SODIUM 140 mmol/L (136-145); TOTAL PROTEIN 7.2 g/dL (6.4-8.2); eGFR NON BLACK RACES 48 (>60)
--- NOTE | 2022-06-10 16:13 | CT ---
HISTORYFALLSTUDYCT HEAD WITHOUT CONTRASTCOMPARISONApril 2022 at 2:[address] of the head is performed from the base of the skull through the vertex WITHOUT contrast . Multiplaner reformats are generated from the original axial data.FINDINGSAge related cortical volume loss is observed. There is commensurate dilation of the lateral ventricles. 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 There is no evidence of an acute intracranial hemorrhage or extra-axial fluid collection. There is no mass effect, shift or cerebral edema. Atherosclerotic calcifications are associated with the cavernous ICA segments. There is no acute stage, large artery territorial infarct.Paranasal sinuses and mastoid air cells are predominantly clear. The calvarium is intact. No extracalvarial soft tissue hematoma is identified.IMPRESSIONNo acute intracranial abnormalitiesAge related generalized cortical atrophy with commensurate ventricular dilatationAdvanced degenerative white matter changes associated with chronic microangiopathy.Radiation dose reduction was achieved through individualized adjustment of kVP and/or mA, through adaptive statistical iterative reconstruction, and/or through automated tube current modulation.Electronically signed by: SUSHMA MCFARLAND (Jun 10, 2022 16:12:23)
[2022-06-10 18:24] LABS: BILIRUBIN,URINE NEGATIVE (NEGATIVE); BLOOD/HEMOGLOBIN,URINE 1+ (NEGATIVE); GLUCOSE, URINE NEGATIVE (NEGATIVE); KETONES,URINE NEGATIVE (NEGATIVE); LEUKOCYTE ESTERASE ,URINE NEGATIVE (NEGATIVE); NITRITES,URINE NEGATIVE (NEGATIVE); PROTEIN,URINE NEGATIVE (NEGATIVE); UROBILINOGEN,URINE NORMAL (NORMAL)
[2022-06-10 18:33] LABS: APPEARANCE,URINE SLIGHTLY HAZY (CLEAR); COLOR,URINE PALE YELLOW (YELLOW)
[2022-06-10 18:34] LABS: BACTERIA,URINE 2+ /HPF (NEGATIVE); HYALINE CASTS, URINE FEW /LPF (NEGATIVE); RBC,URINE 0-2 /HPF (0-3); SQUAMOUS EPITHELIAL CELL,UR FEW /HPF (NEGATIVE)
[2022-06-10] MEDS ORDERED: MYSOLINE PO SCH (21:09)
[2022-06-10] MEDS ORDERED: NAMENDA TAB 10 MG PO SCH (21:09)
[2022-06-10] MEDS ORDERED: NEURONTIN CAP 300 MG PO SCH (21:09)
[2022-06-10] MEDS ORDERED: CRESTOR TAB 10 MG PO SCH (21:09)
[2022-06-10] MEDS ORDERED: ZESTRIL TAB 20 MG ONE (22:12)
[2022-06-10] MEDS: PriLOSEC PO SCH (22:16)
[2022-06-10] MEDS: ZESTRIL TAB 20 MG PO SCH (22:17)
[2022-06-10 22:31] VITALS: BMI 24.7
--- NOTE | 2022-06-11 02:45 | RAD ---
HISTORYFALL LAST PM SKIN CASTUDYCHEST, 1 [id number] trachea is midline. The cardiac silhouette is mildly enlarged. Large hiatal hernia. The lungs are clear without focal infiltrate or effusion. The bony thorax is unremarkable.IMPRESSIONMild cardiomegalyNo active cardiopulmonary disease.Large hiatal hernia.Electronically signed by: Yoan Watson (Jun 11, 2022 02:43:45)
[2022-06-11 06:22] LABS: BASOPHILS % (AUTO) 0.7 % (0.2-1.0); EOSINOPHILS # (AUTO) 0.2 x10^3/uL (0.0-0.2); EOSINOPHILS % (AUTO) 3.1 % (0.9-2.9); HEMATOCRIT 36.2 % (36.0-47.0); HEMOGLOBIN 12.1 g/dL (12.0-16.0); LYMPHOCYTES # (AUTO) 1.1 X10^3/uL (1.3-2.9); MEAN CORPUSCULAR HEMOGLOBIN 28.2 pg (27.0-34.0); MEAN CORPUSCULAR HGB CONC 33.3 g/dL (33.0-35.0); MEAN CORPUSCULAR VOLUME 84.7 fL (80.0-100.0); MEAN PLATELET VOLUME 8.9 fL (7.4-11.0); MONOCYTES # (AUTO) 0.3 x10^3/uL (0.3-0.8); MONOCYTES % (AUTO) 6.5 % (0.0-13.0); NEUTROPHILS # (AUTO) 3.7 x10^3/uL (2.2-4.8); NEUTROPHILS % (AUTO) 68.7 % (42.0-75.0); RED BLOOD COUNT 4.28 X10^6/uL (3.5-5.4); RED CELL DISTRIBUTION WIDTH 17.1 % (11.6-16.5); WHITE BLOOD COUNT 5.3 X10^3/uL (3.6-10.0)
[2022-06-11 06:46] LABS: ALANINE AMINOTRANSFERASE 14 Units/L (12-78); ALBUMIN 3.2 g/dL (3.4-5.0); ALKALINE PHOSPHATASE 79 Units/L (46-116); ASPARTATE AMINO TRANSFERASE 17 Units/L (15-37); BLOOD UREA NITROGEN 27 mg/dL (7-18); CALCIUM 9.1 mg/dL (8.5-10.1); CHLORIDE 105 mmol/L (98-107); COR CA(FOR HYPOALB) 9.7 mg/dL (8.5-10.1); COR NA(FOR HYPERGLY) 142 mmol/L (136-145); CREATININE 1.09 mg/dL (0.55-1.02); SODIUM 142 mmol/L (136-145); TOTAL PROTEIN 6.3 g/dL (6.4-8.2); eGFR NON BLACK RACES 51 (>60)
[2022-06-11] MEDS ORDERED: MICRO K EXTEN CAP 10 MEQ PO SCH (09:00)
[2022-06-11] MEDS ORDERED: NORVASC TAB 5 MG PO SCH (09:00)
[2022-06-11] MEDS ORDERED: EFFEXOR XR 37.5 MG CAP 24-HR PO SCH (09:00)
[2022-06-11] MEDS ORDERED: LASIX PO SCH (09:00)
[2022-06-11] MEDS ORDERED: SINGULAIR TAB 10 MG PO SCH (09:00)
[2022-06-11] MEDS ORDERED: ZESTRIL TAB 20 MG ONE (10:17)
[2022-06-11] MEDS: ZESTRIL TAB 20 MG PO SCH (10:20)
[2022-06-11] MEDS: PriLOSEC PO SCH (10:21)
[2022-06-11] MEDS ORDERED: ANTIVERT TAB 25 MG PO ONE (10:30)
--- NOTE | 2022-06-11 12:06 | DR.CARTERS ---
Short Stay Summary - Admission Date Date of Admission: 06/10/22 - Discharge Date Discharge Date: 06/11/22 - Admission Diagnoses (1) Concussion Status: Acute (2) Altered mental status Status: Acute (3) Bacteriuria Status: Acute (4) Hypoxia Status: Acute (5) CHF (congestive heart failure) Status: Chronic (6) Hypertension Status: Chronic - Hospital Course Hospital Course: IS A 81 YEAR OLD PATIENT OF OURS. SHE PRESENTED TO THE ER ON 06/10/22 VIA EMS DUE TO RECENT FALL, AMS, AND SLURRED SPEECH. PATIENTS FAMILY MEMBER REPORTS THAT PATIENT FELL AND HIT HER HEAD ON 06/09/22. SHE WAS EVALUATED IN THE ER AND THEN SENT BACK HOME WHEN RESULTS WERE UNREMARKABLE. AFTER RETURNING HOME, PATIENT BEGAN TO HAVE INCREASING CONFUSION AND HER SPEECH BEGAN TO SLUR. P ATIENTS FAMILY THEN DECIDED TO HAVE PATIENT TO BACK TO THE ER FOR REEVALUATION. ON ARRIVAL, PATIENT WAS NOTED TO HAVE ANY SLURRED SPEECH OR NEURO DEFICITS. SHE COMPALINED OF A DULL HEADACHE, BETWEEN THE TEMPORAL REGIONS. SHE REPORTED THAT PAIN DID NOT RADIATE. SHE ALSO COMPLAINED OF SOME NECK DISCOMFORT WHEN SHE MOVED AROUND MUCH. SHE ALSO REPORTED INTERMITTENT NAUSEA. SHE DENIED FEVER, URI SYMPTOMS, BOWEL OR BLADDER COMPLAINTS, VISUAL CHANGES, LOCALIZED WEAKNESS OR NUMBNESS. HER PMH INCLUDES CHF, DEMENTIA, DEPRESSION, DYSLIPIDEMIA, GERD, AND HTN. ON ARRIVAL TO THE HOSPITAL, VITALS WERE: 98.2-69-23-95%-174/82. LABS WERE OBTAINED. WBC 6.9, RBC 4.58, HGB 13.0, HCT 38.7, PLT COUNT 244, SODIUM 140, POTASSIUM 4.4, CHLORIDE 103, BUN 28, CREATININE 1.14, GLUCOSE 128, CALCIUM 9.3, AST 18, ALT 16, ALK PHOS 90, TROPONIN 7.4, TOTAL PROTEIN 7.2, ALBUMIN 3.8. URINALYSIS WAS OBTAINED AND REVEALED: WBC 0-2, RBC 0-2, BACTERIA 2+, LEUKOCYTES NEGATIVE. A URINE CULTURE WAS SET UP. A BRAIN CT WAS OBTAINED AND REVEALED: No acute intracranial abnormalities. Age related generalized cortical atrophy with commensurate ventricular dilatation. Advanced degenerative white matter changes associated with chronic microangiopathy. A CHEST XRAY WAS OBTAINED AND REVEALED: Mild cardiomegaly. No active cardiopulmonary disease. Large hiatal hernia. A CERVICAL SPINE CT WAS OBTAINED DURING HER PRIOR ER VISIT. IT REVEALED: No evidence for traumatic injury of the cervical spine. IN THE ER, SHE WAS GIVEN ZOFRAN 4MG IV X 1 DOSE AND ANTIVERT 25MG PO X 1. SHE WAS ADMITTED TO THE HOSPITAL OBSERVATION STATUS FOR FURTHER EVALUATION AND TREATMENT OF AMS, CONCUSSION. ON THE MORNING FOLLOWING ADMISSION, PATIENT IS ALERT AND ORIENTED, LYING IN BED ON MORNING ROUNDS. SHE CONTINUED TO COMPLAIN OF A DULL HEADACHE, BUT DENIED OTHER COMPLAINTS. SHE WAS ABLE TO ANSWER QUESTIONS AND FOLLOW COMMANDS APPROPRIATELY. ON EXAMINATION, HEART IS REGULAR IN RATE AND RHYTHM. BILATERAL LUNGS ARE CLEAR TO AUSCULTATION. ABDOMEN IS ROUND, SOFT, AND NON-TENDER WITH NORMAL BOWEL SOUNDS NOTED IN ALL QUADRANTS. GOOD MOVEMENT NOTED IN ALL EXTREMITIES WITH NO UPPER OR LOWER EXTREMITY EDEMA NOTED. HER VITALS THIS MORNING WERE: 97.7-60-20-93%-132/59. HER SATURATIONS HAVE REMAINED 90-93% ON ROOM AIR WHILE AT REST. WHEN AMBULATING OR MOVING AROUND IN BED, HER SATURATIONS DROP TO 88%.LABS WERE OBTAINED. WBC 5.3, RBC 4.28, HGB 12.1, HCT 36.2, PLT COUNT 230, SODIUM 142, POTASSIUM 4.6, CHLORIDE 105, BUN 27, CREATININE 1.09, GLUCOSE 119, CALCIUM 9.1, AST 17, ALT 14, ALK PHOS 79, TOTAL PROTEIN 6.3, ALBUMIN 3.2, MAGNESIUM 2.2. WE PLANNED FOR DISCHARGE. DUE TO HYPOXIA AND HX OF CHF, WE WILL ORDER FOR HER TO HAVE AN OXYGEN CONCENTRATOR AT HOME. PATIENT IS INSTRUCTED TO CONTINUE HER CURRENT MEDICATIONS WITH NO CHANGES MADE TO DOSAGES AND TO FOLLOW- UP IN THE OFFICE IN 1 WEEK. PATIENT AND FAMILY VERBALIZE UNDERSTANDING OF ALL ORDERS. PATIENT WAS DISCHARGED HOME WITH FAMILY IN STABLE CONDITION. TIME SPENT ON CLINICAL ASSESSMENT, REVIWING LABS AND IMAGING, DECISION MAKING, DISCHARGE INSTRUCTIONS, PREPARING DISCHARGE PAPERS, AND DOCUMENTATION GREATER THAN 75 MINUTES. - Discharge Medications Discharge Medications: Home Medication List aspirin 81 mg tablet,delayed release 81 mg PO DAILY 06/10/22 [History] furosemide 20 mg tablet 20 mg PO QDAY 06/10/22 [History] magnesium oxide 400 mg (241.3 mg magnesium) tablet 400 mg PO QDAY 06/10/22 [History] meclizine 25 mg tablet 25 mg PO DAILY PRN Dizziness Or Vertigo 06/10/22 [History] potassium chloride 10 mEq capsule,extended release 10 meq PO QDAY 06/10/22 [History] Prescriptions: - Discharge Plan Disposition: HOME, SELF-CARE Condition: Stable - Follow up/Referrals Follow up/Referrals: Rehan Dodson [Primary Care Provider] - 06/18/22 2:30 pm - Instructions Additional Instructions: DIET TOLERATED. ACTIVITY TOLERATED. Forms: Excuse From Work or School
[2022-06-11 12:30] VITALS: BP 144/66
== END 2022-06-11 14:20 | disposition home or self-care (01) ==
LOC: MED/SURG 15:01 → ER 15:01 → MED/SURG 19:57
PROVIDERS: ADMIT Internal Medicine; ATTEND Internal Medicine
DX: K44.9 Diaphragmatic hernia without obstruction or gangrene; W18.39XA Other fall on same level, initial encounter; I10 Essential (primary) hypertension; R41.82 Altered mental status, unspecified; M54.2 Cervicalgia; R82.71 Bacteriuria; E78.2 Mixed hyperlipidemia; R51.9 Headache, unspecified; B96.89 Other specified bacterial agents as the cause of diseases classified elsewhere; S06.0X0A Concussion without loss of consciousness, initial encounter; R47.81 Slurred speech; R09.02 Hypoxemia; K21.9 Gastro-esophageal reflux disease without esophagitis; Y92.9 Unspecified place or not applicable

== ENCOUNTER 2023-05-06 09:30 | Inpatient (IN) ==
--- NOTE | 2023-05-06 09:51 | DR.DIZZY ---
HPI Time seen Time Seen by Provider: 05/06/23 09:51 PCP Primary Care Physician: MARY Complaint Chief Complaint Doctor Comments: 82 y/o female brought in by EMS for evaluation. Patient complaining of generalized weakness. Has been feeling poorly over the past several days. Patient fell, was seen here 2 days ago. Workup at that time was unremarkable, patient was sent home. Since then patient's left knee/left hip has been hurting, worse with ROM. Nothing makes it better. Denies any fever, chills, diaphoresis, URI symptoms, bowel or bladder issues. States she has been eating/drinking. Patient's primary care provider asked her to return to the ER for workup and probable admission. Chief Complaint:: PT STATES SHE FELL LAST WEEK AND SINCE THEN SHE HAS BEEN HAVING WEAKNESS AND PAIN TO KNEES AND HIPS. STATES SHE IS UNABLE TO BARE WEIGHT TO THAT AREA. PT ARRIVED TO THE ER WITH A 22 G IN THE LEFT HAND THAT IS PATENT AND FLUSED. EMS STATES PT HAD THE IV AT HOME FOR OUTPT ANTIBOTICS. COVID-19 Coronavirus risk:travel/contact w/high risk person: No Has patient experienced Coronavirus symptoms: No Nurses Notes Reviewed Nurses Notes Review: Yes Source History Provided: Patient Mode of Arrival Mode of Arrival: EMS Timing Onset of Chief Complaint: 05/06/23 Context Stroke Symptoms: None PMH PMH Past Medical History: Yes Past Medical History: CHF, Dementia, Depression, Dyslipidemia, GERD and Hyperte nsion Past Surgical History: Yes Surgical History: No History Family History History of Family Medical Conditions: Yes Family Medical History: [place] and Hypertension Social History Does patient currently use any type of tobacco product: No Does any household member use tobacco: No Alcohol Use: None Do you use any recreational Drugs:: No Lives With: Family Lives Where: Home Travel Risk Coronavirus risk:travel/contact w/high risk person: No Has patient experienced Coronavirus symptoms: No Infectious screening In the last 2 months have you had wt loss of >10#?: NO Have you had fever, night sweats or hemotysis?: No Have you traveled outside the country in the last 6 months?: No Isolation: Standard ROS Review of Systems Constitutional: Malaise and Weakness Eyes: No Symptoms Reported ENTM: No Symptoms Reported Respiratoy: No Symptoms Reported Cardiovascular: No Symptoms Reported Gastrointestinal/Abdominal: No Symptoms Reported Genitourinary: No Symptoms Reported Neurological: Weakness Musculoskeletal: See HPI Integumentary: No Symptoms Reported Hematologic/Lymphatic: No Symptoms Reported All Other Systems: Reviewed and Negative PE Vital Signs Vitals: Vital Signs Temperature 97.9 F Pulse Rate 158 Pulse Rate 216 Pulse Rate 65 Pulse Rate 64 Pulse Rate 68 Pulse Rate 65 Pulse Rate 69 Pulse Rate 67 Pulse Rate 68 Pulse Rate 70 Pulse Rate 71 Pulse Rate 73 Pulse Rate 74 Pulse Rate 82 Pulse Rate 76 Pulse Rate 77 Respiratory Rate 20 Blood Pressure 126/86 Blood Pressure 120/59 Blood Pressure 137/64 Blood Pressure 118/61 Blood Pressure 126/67 Blood Pressure 116/63 Blood Pressure 124/57 Blood Pressure 124/57 O2 Sat by Pulse Oximetry 90 O2 Sat by Pulse Oximetry 82 O2 Sat by Pulse Oximetry 96 O2 Sat by Pulse Oximetry 96 O2 Sat by Pulse Oximetry 95 O2 Sat by Pulse Oximetry 94 O2 Sat by Pulse Oximetry 97 O2 Sat by Pulse Oximetry 94 O2 Sat by Pulse Oximetry 98 O2 Sat by Pulse Oximetry 97 O2 Sat by Pulse Oximetry 96 O2 Sat by Pulse Oximetry 97 O2 Sat by Pulse Oximetry 95 O2 Sat by Pulse Oximetry 96 O2 Sat by Pulse Oximetry 95 O2 Sat by Pulse Oximetry 93 General General Appearance: Alert and In No Apparent Distress Head Head Exam: Normal Inspection, Atraumatic and Normocephalic Eyes Eye exam: PERRL and EOMI ENT ENT Exam: Normal Exam, Mucous Membranes Moist and TM's Normal Bilaterally Neck Neck Exam: Normal Inspection and Full ROM; negative Tenderness Respiratory Respiratory Exam: Normal Lung Sounds Bilat; negative Accessory Muscle Use or Respiratory Distress Cardiovascular Cardiovascular Exam: Regular Rate, Normal Rhythm and Normal Heart Sounds Abdominal Exam Abdominal Exam: Normal Bowel Sounds and Soft; negative Tenderness Extremeties Extremities Exam: Normal Inspection; negative Edema Neurologic Neurological Exam: Alert, Oriented X3 and CN II-XII Intact; negative Motor Sen donny Deficit Skin Skin Exam: Warm and Dry Other Exam Other Exam: L hip -no point tenderness, good internal/external rotation, good hip. Left knee -no point tenderness, no effusion. Has pain with range of motion, ligaments intact. COURSE Treatment Treatment: 82-year-old female with generalized weakness, left lower extremity discomfort, following recent fall. Vital signs stable, physical exam benign. Workup initiated. Patient given IV fluids. 1044 - L hip/knee/CXR - without acute abnormalities. U/A - 3+ theresa est, 10-20 WBCs, just fnishing IV Invanz for UTI (had two e. coli species, both sensitive to Invanz). W/u otherwise unremarkable. Per Dr Dodson's office, they would like her to be admitted. Discussed with Dr Dobbins, accepts the admission. [facility] Labs Reviewed Laboratory Results Reviewed?: Yes 05/06/23 11:15 05/06/23 11:15 Laboratory: WBC 5.6 X10^3/uL (3.6-10.0) 05/06/23 11:15 RBC 3.61 X10^6/uL (3.5-5.4) 05/06/23 11:15 Hgb 11.3 g/dL (12.0-16.0) L 05/06/23 11:15 Hct 33.8 % (36.0-47.0) L 05/06/23 11:15 MCV 93.5 fL (80.0-100.0) 05/06/23 11:15 MCH 31.2 pg (27.0-34.0) 05/06/23 11:15 MCHC 33.3 g/dL (33.0-35.0) 05/06/23 11:15 RDW 15.2 % (11.6-16.5) 05/06/23 11:15 Plt Count 207 X10^3/uL (150.0-450.0) 05/06/23 11:15 MPV 8.6 fL (7.4-11.0) 05/06/23 11:15 Neut % (Auto) 63.6 % (42.0-75.0) 05/06/23 11:15 Lymph % (Auto) 24.8 % (21.0-51.0) 05/06/23 11:15 Walsh % (Auto) 9.0 % (0.0-13.0) 05/06/23 11:15 Eos % (Auto) 2.1 % (0.9-2.9) 05/06/23 11:15 Baso % (Auto) 0.5 % (0.2-1.0) 05/06/23 11:15 Neut # (Auto) 3.6 x10^3/uL (2.2-4.8) 05/06/23 11:15 Lymph # (Auto) 1.4 X10^3/uL (1.3-2.9) 05/06/23 11:15 Walsh # (Auto) 0.5 x10^3/uL (0.3-0.8) 05/06/23 11:15 Eos # (Auto) 0.1 x10^3/uL (0.0-0.2) 05/06/23 11:15 Baso # (Auto) 0.0 X10^3/uL (0.0-0.1) 05/06/23 11:15 Absolute Nucleated RBC 0.1 /100WBC 05/06/23 11:15 Sodium 144 mmol/L (136-145) 05/06/23 11:15 Corrected Sodium TNP 05/06/23 11:15 Potassium 5.1 mmol/L (3.5-5.1) 05/06/23 11:15 Chloride 108 mmol/L (98-107) H 05/06/23 11:15 Carbon Dioxide 26.8 mmol/L (21-32) 05/06/23 11:15 BUN 29 mg/dL (7-18) H 05/06/23 11:15 Creatinine 1.49 mg/dL (0.55-1.02) H 05/06/23 11:15 Est GFR (MDRD) Af Amer 43 (>60) L 05/06/23 11:15 Est GFR (MDRD) Non-Af 35 (>60) L 05/06/23 11:15 Glucose 88 mg/dL (65-99) 05/06/23 11:15 Calcium 8.9 mg/dL (8.5-10.1) 05/06/23 11:15 Corrected Calcium 9.8 mg/dL (8.5-10.1) 05/06/23 11:15 Total Bilirubin 0.30 mg/dL (0.2-1.0) 05/06/23 11:15 AST 17 Units/L (15-37) 05/06/23 11:15 ALT 17 Units/L (12-78) 05/06/23 11:15 Alkaline Phosphatase 73 Units/L (46-116) 05/06/23 11:15 Troponin I High Sens 5.9 ng/L (4.0-60.0) 05/06/23 11:15 Total Protein 6.5 g/dL (6.4-8.2) 05/06/23 11:15 Albumin 2.9 g/dL (3.4-5.0) L 05/06/23 11:15 Globulin 3.6 g/dL (2.5-4.5) 05/06/23 11:15 Albumin/Globulin Ratio 0.8 Ratio (1.1-2.1) L 05/06/23 11:15 Lipase 27 Units/L (16-77) 05/06/23 11:15 TSH 3rd Generation 1.077 uIU/mL (0.358-3.74) 05/06/23 11:15 Specimen Type Clean catch urine 05/06/23 10:15 Urine Color Yellow (YELLOW) 05/06/23 10:15 Urine Appearance Slightly hazy (CLEAR) 05/06/23 10:15 Urine pH 6.0 (5.0 - 8.0) 05/06/23 10:15 Ur Specific [place] 1.020 (1.000-1.030) 05/06/23 10:15 Urine Protein Negative (NEGATIVE) 05/06/23 10:15 Urine Glucose (UA) Negative (NEGATIVE) 05/06/23 10:15 Urine Ketones Negative (NEGATIVE) 05/06/23 10:15 Urine Blood 3+ (NEGATIVE) 05/06/23 10:15 Urine Nitrite Negative (NEGATIVE) 05/06/23 10:15 Urine Bilirubin Negative (NEGATIVE) 05/06/23 10:15 Urine Urobilinogen Normal (NORMAL) 05/06/23 10:15 Ur Leukocyte Esterase 3+ (NEGATIVE) 05/06/23 10:15 Urine RBC 0-2 /HPF (0-3) 05/06/23 10:15 Urine WBC 10-20 /HPF (0-5) A 05/06/23 10:15 Ur Squamous Epith Cells Few /HPF (NEGATIVE) 05/06/23 10:15 Urine Bacteria Trace /HPF (NEGATIVE) 05/06/23 10:15 Urine Yeast Rare /HPF (NEGATIVE) 05/06/23 10:15 Ur Culture Indicated? Yes/culture set up 05/06/23 10:15 XRAY XRAY Interpreted by: Both X-ray Results: No acute abnormalities. Opioid Opioid Risk Tool Age (David box if 16-45): No History of Preadolescent Sexual Abuse: No Total: 0 Total Score Risk Category: Low Risk Copyright: Dony FERMIN predicting aberrant behaviors Discharge Plan Discharge Plan Patient Disposition: 01 HOME, SELF-CARE Condition: Stable Prescriptions: No Action ergocalciferol (vitamin D2) 1,250 mcg (50,000 unit) Capsule 1,250 mcg PO QWEEK aspirin [Aspir-81] 81 mg Tablet,Delayed Release (Dr/Ec) 81 mg PO QDAY magnesium oxide 400 mg magnesium Tablet 400 mg PO QDAY sulfamethoxazole-trimethoprim 800-160 mg tablet 1 tab PO BID Rx Instructions: Take one tablet by mouth twice a day with plenty of water ertapenem 1 gram recon soln 0.5 g IV DAILY Patient Comments: 05/06/23 last day Rx Instructions: Administer one half (1/2) gram by inject (IV) every day. Will be administered by home health nitrofurantoin monohyd/m-cryst 100 mg capsule 1 cap PO BID Rx Instructions: Take one capsule by mouth twice a day for 10 days primidone 50 mg tablet 50 mg PO QHS venlafaxine 37.5 mg capsule,extended release 24hr 37.5 mg PO QDAY potassium chloride 10 mEq capsule, extended release 10 meq PO QDAY lisinopril 20 mg tablet 20 mg PO BID omeprazole 40 mg capsule,delayed release(DR/EC) 40 mg PO BID gabapentin 300 mg capsule 300 mg PO QHS montelukast 10 mg tablet 10 mg PO QDAY furosemide 20 mg tablet 20 mg PO QDAY rosuvastatin 10 mg tablet 10 mg PO QPM memantine 10 mg tablet 10 mg PO QPM cetirizine 10 mg Tablet 10 mg PO QDAY cyanocobalamin (vitamin B-12) 1,000 mcg/mL Solution 1,000 mcg IM Q2W ondansetron 4 mg tablet,disintegrating 4 mg translingual Q6H PRN (Reason: nausea and vomiting) 3 Days Qty: 12 0RF Orders to Discharge Patient Discharge Orders: Transfer (Routine); Ordered 05/06/23 Ordered By: Bart Sloan
[2023-05-06] MEDS ORDERED: NS 500 ML IV 500 ML IV ONE (10:01)
[2023-05-06] MEDS: NS 500 ML IV 500 ML IV ONE (10:05)
[2023-05-06 10:35] LABS: APPEARANCE,URINE SLIGHTLY HAZY (CLEAR); BILIRUBIN,URINE NEGATIVE (NEGATIVE); BLOOD/HEMOGLOBIN,URINE 3+ (NEGATIVE); COLOR,URINE YELLOW (YELLOW); GLUCOSE, URINE NEGATIVE (NEGATIVE); KETONES,URINE NEGATIVE (NEGATIVE); NITRITES,URINE NEGATIVE (NEGATIVE); PROTEIN,URINE NEGATIVE (NEGATIVE); UROBILINOGEN,URINE NORMAL (NORMAL)
[2023-05-06 10:36] LABS: BACTERIA,URINE TRACE /HPF (NEGATIVE); LEUKOCYTE ESTERASE ,URINE 3+ (NEGATIVE); RBC,URINE 0-2 /HPF (0-3); SQUAMOUS EPITHELIAL CELL,UR FEW /HPF (NEGATIVE); YEAST,URINE RARE /HPF (NEGATIVE)
--- NOTE | 2023-05-06 11:15 | RAD ---
EXAM:CHEST, 1 VIEWHISTORY:Weakness.COMPARISON:07/04/19 24.FINDINGS:The patient is tilted and rotated to the left. There are atherosclerotic changes of the thoracic aorta. The cardiac silhouette is at the upper limits of normal in size and obscures portions of the left lung base. The lungs are clear otherwise without focal consolidation, pleural effusion or pneumothorax. The bony thorax is grossly unremarkable.IMPRESSION:Rotated exam without acute cardiopulmonary findings within the limitations of the study as above.THIS IS AN ELECTRONICALLY VERIFIED FINAL REPORT05/06/2023 11:11 AM - Electronically signed by Parish Lozano MD
--- NOTE | 2023-05-06 11:22 | RAD ---
EXAM:KNEE COMPLETE, LEFTHISTORY:LEFT KNEE PAIN;COMPARISON:No relevant studies are available for comparison at the time of interpretation.TECHNIQUE:3 view(s)FINDINGS:The distal femur patella and proximal tibia and fibula are intact. No dislocation. No apparent soft tissue abnormality. There are degenerative changes including Tricompartmental osteophytes with lateral predominant joint space narrowing. No significant joint effusion.IMPRESSION:1. No acute fracture or dislocationTHIS IS AN ELECTRONICALLY VERIFIED FINAL REPORT05/06/2023 11:19 AM - Electronically signed by Isma Gallagher MD
[2023-05-06 11:25] LABS: BASOPHILS % (AUTO) 0.5 % (0.2-1.0); EOSINOPHILS # (AUTO) 0.1 x10^3/uL (0.0-0.2); EOSINOPHILS % (AUTO) 2.1 % (0.9-2.9); HEMATOCRIT 33.8 % (36.0-47.0); HEMOGLOBIN 11.3 g/dL (12.0-16.0); LYMPHOCYTES # (AUTO) 1.4 X10^3/uL (1.3-2.9); LYMPHOCYTES % (AUTO) 24.8 % (21.0-51.0); MEAN CORPUSCULAR HEMOGLOBIN 31.2 pg (27.0-34.0); MEAN CORPUSCULAR HGB CONC 33.3 g/dL (33.0-35.0); MEAN CORPUSCULAR VOLUME 93.5 fL (80.0-100.0); MEAN PLATELET VOLUME 8.6 fL (7.4-11.0); MONOCYTES # (AUTO) 0.5 x10^3/uL (0.3-0.8); NEUTROPHILS # (AUTO) 3.6 x10^3/uL (2.2-4.8); NEUTROPHILS % (AUTO) 63.6 % (42.0-75.0); PLATELET COUNT 207 X10^3/uL (150.0-450.0); RED BLOOD COUNT 3.61 X10^6/uL (3.5-5.4); RED CELL DISTRIBUTION WIDTH 15.2 % (11.6-16.5); WHITE BLOOD COUNT 5.6 X10^3/uL (3.6-10.0)
[2023-05-06 11:59] LABS: ALANINE AMINOTRANSFERASE 17 Units/L (12-78); ALBUMIN 2.9 g/dL (3.4-5.0); ALKALINE PHOSPHATASE 73 Units/L (46-116); ASPARTATE AMINO TRANSFERASE 17 Units/L (15-37); BLOOD UREA NITROGEN 29 mg/dL (7-18); CALCIUM 8.9 mg/dL (8.5-10.1); CARBON DIOXIDE 26.8 mmol/L (21-32); CHLORIDE 108 mmol/L (98-107); COR CA(FOR HYPOALB) 9.8 mg/dL (8.5-10.1); CREATININE 1.49 mg/dL (0.55-1.02); GLUCOSE 88 mg/dL (65-99); LIPASE 27 Units/L (16-77); POTASSIUM 5.1 mmol/L (3.5-5.1); SODIUM 144 mmol/L (136-145); TOTAL PROTEIN 6.5 g/dL (6.4-8.2); TSH (3RD GENERATION) 1.077 uIU/mL (0.358-3.74); eGFR NON BLACK RACES 35 (>60)
[2023-05-06] MEDS ORDERED: CONSULT PHARMACY - POTASSIUM & MAGNESIUM XX SCH (13:42)
--- NOTE | 2023-05-06 15:05 | RAD ---
EXAM:HIP, LEFTHISTORY:LEFT HIP PAIN;COMPARISON:No relevant studies are available for comparison at the time of interpretation.TECHNIQUE:2 view(s)FINDINGS:The pelvic rings are intact. The pubic symphysis is not widened. The SI joints are atraumatic. Visualized portions of the pelvic bones and proximal femurs are intact. No hip dislocation noted. No apparent soft tissue abnormality. There are degenerative changes including bilateral hip joint space loss and osteophytes, [id number]:1. No acute fracture or dislocationTHIS IS AN ELECTRONICALLY VERIFIED FINAL REPORT05/06/2023 3:01 PM - Electronically signed by Isma Gallagher MD
[2023-05-06] MEDS: D5 NS 1,000 ML IV 1,000 ML IV SCH (15:14)
[2023-05-06] MEDS: ZOSYN VIAL 3.375 GRAMS 3.375 G in NS 100 ML IV 100 ML IV SCH (15:14)
[2023-05-06] MEDS ORDERED: NYSTATIN POWDER ONE (15:31)
[2023-05-06 16:06] VITALS: BMI 30.5
[2023-05-06] MEDS: NYSTATIN POWDER TOP SCH (16:07)
[2023-05-07 05:52] LABS: BASOPHILS % (AUTO) 0.3 % (0.2-1.0); EOSINOPHILS # (AUTO) 0.2 x10^3/uL (0.0-0.2); EOSINOPHILS % (AUTO) 2.7 % (0.9-2.9); HEMATOCRIT 32.8 % (36.0-47.0); HEMOGLOBIN 10.8 g/dL (12.0-16.0); LYMPHOCYTES # (AUTO) 0.7 X10^3/uL (1.3-2.9); LYMPHOCYTES % (AUTO) 11.1 % (21.0-51.0); MEAN CORPUSCULAR HEMOGLOBIN 30.8 pg (27.0-34.0); MEAN CORPUSCULAR VOLUME 93.3 fL (80.0-100.0); MEAN PLATELET VOLUME 8.9 fL (7.4-11.0); MONOCYTES # (AUTO) 0.6 x10^3/uL (0.3-0.8); MONOCYTES % (AUTO) 8.5 % (0.0-13.0); NEUTROPHILS # (AUTO) 5.1 x10^3/uL (2.2-4.8); NEUTROPHILS % (AUTO) 77.4 % (42.0-75.0); PLATELET COUNT 206 X10^3/uL (150.0-450.0); RED BLOOD COUNT 3.52 X10^6/uL (3.5-5.4); RED CELL DISTRIBUTION WIDTH 15.2 % (11.6-16.5); WHITE BLOOD COUNT 6.6 X10^3/uL (3.6-10.0)
[2023-05-07 05:58] LABS: ALBUMIN 2.7 g/dL (3.4-5.0); CALCIUM 8.6 mg/dL (8.5-10.1); CARBON DIOXIDE 23.8 mmol/L (21-32); COR CA(FOR HYPOALB) 9.6 mg/dL (8.5-10.1); CREATININE 1.24 mg/dL (0.55-1.02); POTASSIUM 4.4 mmol/L (3.5-5.1); TOTAL PROTEIN 6.2 g/dL (6.4-8.2)
[2023-05-07] MEDS: INVanz INJ 1 GRAM VIAL 1 G in NS 100 ML IV 100 ML IV SCH (10:33)
[2023-05-07] MEDS: PriLOSEC PO SCH (10:33)
[2023-05-07] MEDS: EFFEXOR XR 37.5 MG CAP 24-HR PO SCH (10:34)
[2023-05-07] MEDS: ZESTRIL TAB 20 MG PO SCH (10:34)
[2023-05-07] MEDS: LASIX PO SCH (10:34)
[2023-05-07] MEDS: SINGULAIR TAB 10 MG PO SCH (10:34)
[2023-05-07] MEDS: MICRO K EXTEN CAP 10 MEQ PO SCH (10:35)
[2023-05-07] MEDS: ASPIRIN EC 81 MG PO SCH (10:35)
[2023-05-07] MEDS: LOVENOX INJ 40 MG SYR SC SCH (10:36)
--- NOTE | 2023-05-07 12:32 | DR.H&P ---
H&P History & Physical for Day of: H&P Date: 05/07/23 Chief Complaint Chief Complaint: Generalized weakness Dysuria Allergies Allergies Allergy/AdvReac Type Severity Reaction Status Date / Time iron Allergy Verified 06/10/22 01:52 latex Allergy Verified 06/10/22 01:52 History of Present Illness History of Present Illness: Patient is a 82-year-old female with a past medical history of hypertension, CHF, hyperlipidemia, tremors, presenting to the ED due to generalized weakness and dysuria. She has been receiving treatment at home due to ESBL E. coli urinary infection. She has been receiving IV Invanz. Per daughter, patient became acutely weak and unable to ambulate. Labs/imaging: WBC 6.6, hemoglobin 10.8, platelets 206, sodium 144, potassium 4.4, creatinine 1.24, glucose 128. UA consistent with infection, urine cultures pending. Patient was started on IV antibiotics Zosyn, will change to Invanz due to previous culture while awaiting new culture results. IV fluids D5 normal saline at 80 mL/h. Patient is eating well will decrease IV fluids to KVO. Will order physical therapy for evaluation of weakness. Restart home medications. Otherwise continue with current treatment plan. Continue closely monitor and follow-up labs in the morning. Past Medical History Past Medical History: CHF, Dementia, Depression, Dyslipidemia, GERD and Hypertension Past Surgical History Surgical History: No History Family History Family Medical History: [place] and Hypertension Social History Does patient currently use any type of tobacco product: No Have you used tobacco products in the last 12 months: No Type of Tobacco Use: None Does any household member use tobacco: No Alcohol Use: None Drug Use: None Medications Home Medications: Home Medications Medication Instructions Recorded Confirmed Type aspirin 81 mg tablet,delayed 81 mg PO QDAY 09/01/22 05/06/23 History release magnesium oxide 400 mg PO QDAY 09/01/22 05/06/23 History cetirizine 10 mg tablet 10 mg PO QDAY 05/04/23 05/06/23 History cyanocobalamin (vitamin B-12) 1,000 mcg IM Q2W 05/04/23 05/04/23 History 1,000 mcg/mL injection solution ertapenem 1 gram solution for 0.5 g IV DAILY 05/04/23 05/06/23 History injection furosemide 20 mg tablet 20 mg PO QDAY 05/04/23 05/06/23 History gabapentin 300 mg capsule 300 mg PO QHS 05/04/23 05/06/23 History lisinopril 20 mg tablet 20 mg PO BID 05/04/23 05/06/23 History memantine 10 mg tablet 10 mg PO QPM 05/04/23 05/06/23 History montelukast 10 mg tablet 10 mg PO QDAY 05/04/23 05/06/23 History nitrofurantoin 1 cap PO BID 05/04/23 05/04/23 History monohydrate/macrocrystals 100 mg capsule omeprazole 40 mg capsule,delayed 40 mg PO BID 05/04/23 05/06/23 History release potassium chloride 10 mEq 10 meq PO QDAY 05/04/23 05/06/23 History capsule,extended release primidone 50 mg tablet 50 mg PO QHS 05/04/23 05/06/23 History rosuvastatin 10 mg tablet 10 mg PO QPM 05/04/23 05/06/23 History sulfamethoxazole 800 1 tab PO BID 05/04/23 05/04/23 History mg-trimethoprim 160 mg tablet venlafaxine 37.5 mg 37.5 mg PO QDAY 05/04/23 05/06/23 History capsule,extended release 24 hr ergocalciferol (vitamin D2) 1,250 1,250 mcg PO QWEEK 05/06/23 05/06/23 History mcg (50,000 unit) capsule Labs 05/07/23 05:24 05/07/23 05:24 Labs: 05/06/23 10:15 Urine,Clean Catch Urine Culture - Preliminary Laboratory WBC 6.6 X10^3/uL (3.6-10.0) 05/07/23 05:24 RBC 3.52 X10^6/uL (3.5-5.4) 05/07/23 05:24 Hgb 10.8 g/dL (12.0-16.0) L 05/07/23 05:24 Hct 32.8 % (36.0-47.0) L 05/07/23 05:24 MCV 93.3 fL (80.0-100.0) 05/07/23 05:24 MCH 30.8 pg (27.0-34.0) 05/07/23 05:24 MCHC 33.0 g/dL (33.0-35.0) 05/07/23 05:24 RDW 15.2 % (11.6-16.5) 05/07/23 05:24 Plt Count 206 X10^3/uL (150.0-450.0) 05/07/23 05:24 MPV 8.9 fL (7.4-11.0) 05/07/23 05:24 Neut % (Auto) 77.4 % (42.0-75.0) H 05/07/23 05:24 Lymph % (Auto) 11.1 % (21.0-51.0) L 05/07/23 05:24 [place] % (Auto) 8.5 % (0.0-13.0) 05/07/23 05:24 Eos % (Auto) 2.7 % (0.9-2.9) 05/07/23 05:24 Baso % (Auto) 0.3 % (0.2-1.0) 05/07/23 05:24 Neut # (Auto) 5.1 x10^3/uL (2.2-4.8) H 05/07/23 05:24 Lymph # (Auto) 0.7 X10^3/uL (1.3-2.9) L 05/07/23 05:24 [place] # (Auto) 0.6 x10^3/uL (0.3-0.8) 05/07/23 05:24 Eos # (Auto) 0.2 x10^3/uL (0.0-0.2) 05/07/23 05:24 Baso # (Auto) 0.0 X10^3/uL (0.0-0.1) 05/07/23 05:24 Absolute Nucleated RBC 0.1 /100WBC 05/07/23 05:24 Sodium 144 mmol/L (136-145) 05/07/23 05:24 Corrected Sodium 145 mmol/L (136-145) 05/07/23 05:24 Potassium 4.4 mmol/L (3.5-5.1) 05/07/23 05:24 Chloride 108 mmol/L (98-107) H 05/07/23 05:24 Carbon Dioxide 23.8 mmol/L (21-32) 05/07/23 05:24 BUN 26 mg/dL (7-18) H 05/07/23 05:24 Creatinine 1.24 mg/dL (0.55-1.02) H 05/07/23 05:24 Est GFR (MDRD) Af Amer 53 (>60) L 05/07/23 05:24 Est GFR (MDRD) Non-Af 44 (>60) L 05/07/23 05:24 Glucose 128 mg/dL (65-99) H 05/07/23 05:24 Calcium 8.6 mg/dL (8.5-10.1) 05/07/23 05:24 Corrected Calcium 9.6 mg/dL (8.5-10.1) 05/07/23 05:24 Magnesium 2.1 mg/dL (2.0-2.9) 05/06/23 11:15 Total Bilirubin 0.30 mg/dL (0.2-1.0) 05/07/23 05:24 AST 17 Units/L (15-37) 05/07/23 05:24 ALT 16 Units/L (12-78) 05/07/23 05:24 Alkaline Phosphatase 66 Units/L (46-116) 05/07/23 05:24 Troponin I High Sens 5.9 ng/L (4.0-60.0) 05/06/23 11:15 Total Protein 6.2 g/dL (6.4-8.2) L 05/07/23 05:24 Albumin 2.7 g/dL (3.4-5.0) L 05/07/23 05:24 Globulin 3.5 g/dL (2.5-4.5) 05/07/23 05:24 Albumin/Globulin Ratio 0.8 Ratio (1.1-2.1) L 05/07/23 05:24 Lipase 27 Units/L (16-77) 05/06/23 11:15 TSH 3rd Generation 1.077 uIU/mL (0.358-3.74) 05/06/23 11:15 Specimen Type Clean catch urine 05/06/23 10:15 Urine Color Yellow (YELLOW) 05/06/23 10:15 Urine Appearance Slightly hazy (CLEAR) 05/06/23 10:15 Urine pH 6.0 (5.0 - 8.0) 05/06/23 10:15 Ur Specific [place] 1.020 (1.000-1.030) 05/06/23 10:15 Urine Protein Negative (NEGATIVE) 05/06/23 10:15 Urine Glucose (UA) Negative (NEGATIVE) 05/06/23 10:15 Urine Ketones Negative (NEGATIVE) 05/06/23 10:15 Urine Blood 3+ (NEGATIVE) 05/06/23 10:15 Urine Nitrite Negative (NEGATIVE) 05/06/23 10:15 Urine Bilirubin Negative (NEGATIVE) 05/06/23 10:15 Urine Urobilinogen Normal (NORMAL) 05/06/23 10:15 Ur Leukocyte Esterase 3+ (NEGATIVE) 05/06/23 10:15 Urine RBC 0-2 /HPF (0-3) 05/06/23 10:15 Urine WBC 10-20 /HPF (0-5) A 05/06/23 10:15 Ur Squamous Epith Cells Few /HPF (NEGATIVE) 05/06/23 10:15 Urine Bacteria Trace /HPF (NEGATIVE) 05/06/23 10:15 Urine Yeast Rare /HPF (NEGATIVE) 05/06/23 10:15 Ur Culture Indicated? Yes/culture set up 05/06/23 10:15 Review of Systems Constitutional: Weakness Eyes: No Symptoms Reported ENT: No Symptoms Reported Respiratory: No Symptoms Reported Cardiovascular: No Symptoms Reported Gastrointestinal: No Symptoms Reported Genitourinary: Dysuria Musculoskeletal: No Symptoms Reported Skin: No Symptoms Reported Neurological: Other (tremors noted) Physical Exam Vital Signs: Vital Signs Temperature 97.6 F Temperature 98.5 F Pulse Rate [Left Radial] 76 Pulse Rate [Left Radial] 79 Respiratory Rate 18 Respiratory Rate 18 Blood Pressure [Right Arm] 151/67 Blood Pressure [Right Arm] 177/78 O2 Sat by Pulse Oximetry 93 O2 Sat by Pulse Oximetry 93 Oriented: Normal Eyes: Normal Ear: Normal Nose: Normal Throat: Normal Respiratory: Clear Throughout Cardiovascular: Normal : Normal Auscultation: Bowel Sounds: Normal Palpation: Normal Tenderness: Normal Skin: Normal Musculoskeletal: Normal Psychiatric: Normal Mood Description: Calm and Appropriate Affect: Normal Speech Pattern: Clear and Appropriate Assessment/Plan (1) Complicated urinary tract infection: Status: Acute Plan: Urine culture pending IV Invanz (2) Acute dehydration: Status: Acute Plan: IVF (3) Generalized weakness: Status: Acute Plan: PT ordered Review H&P Reviewed: Yes Patient was examined?: Yes
[2023-05-07] MEDS: ZESTRIL TAB 20 MG ONE (14:23)
[2023-05-07] MEDS: NEURONTIN CAP 300 MG PO SCH (21:03)
[2023-05-07] MEDS: CRESTOR TAB 10 MG PO SCH (21:03)
[2023-05-07] MEDS: NAMENDA TAB 10 MG PO SCH (21:03)
[2023-05-07] MEDS: MYSOLINE PO SCH (21:04)
[2023-05-08 04:57] LABS: BASOPHILS % (AUTO) 0.6 % (0.2-1.0); EOSINOPHILS # (AUTO) 0.2 x10^3/uL (0.0-0.2); EOSINOPHILS % (AUTO) 3.8 % (0.9-2.9); HEMATOCRIT 32.2 % (36.0-47.0); HEMOGLOBIN 10.8 g/dL (12.0-16.0); LYMPHOCYTES % (AUTO) 18.8 % (21.0-51.0); MEAN CORPUSCULAR HEMOGLOBIN 31.1 pg (27.0-34.0); MEAN CORPUSCULAR HGB CONC 33.5 g/dL (33.0-35.0); MEAN CORPUSCULAR VOLUME 92.9 fL (80.0-100.0); MEAN PLATELET VOLUME 9.2 fL (7.4-11.0); MONOCYTES # (AUTO) 0.7 x10^3/uL (0.3-0.8); MONOCYTES % (AUTO) 12.3 % (0.0-13.0); NEUTROPHILS # (AUTO) 3.6 x10^3/uL (2.2-4.8); NEUTROPHILS % (AUTO) 64.5 % (42.0-75.0); PLATELET COUNT 215 X10^3/uL (150.0-450.0); RED BLOOD COUNT 3.47 X10^6/uL (3.5-5.4); WHITE BLOOD COUNT 5.5 X10^3/uL (3.6-10.0)
[2023-05-08 05:08] LABS: ALANINE AMINOTRANSFERASE 14 Units/L (12-78); ALBUMIN 2.5 g/dL (3.4-5.0); ALKALINE PHOSPHATASE 63 Units/L (46-116); ASPARTATE AMINO TRANSFERASE 16 Units/L (15-37); BLOOD UREA NITROGEN 21 mg/dL (7-18); CALCIUM 8.9 mg/dL (8.5-10.1); CARBON DIOXIDE 24.1 mmol/L (21-32); CHLORIDE 107 mmol/L (98-107); COR CA(FOR HYPOALB) 10.1 mg/dL (8.5-10.1); COR NA(FOR HYPERGLY) 142 mmol/L (136-145); CREATININE 1.01 mg/dL (0.55-1.02); GLUCOSE 112 mg/dL (65-99); POTASSIUM 4.1 mmol/L (3.5-5.1); SODIUM 142 mmol/L (136-145); TOTAL PROTEIN 6.2 g/dL (6.4-8.2); eGFR NON BLACK RACES 56 (>60)
[2023-05-08] MEDS: ZESTRIL TAB 20 MG ONE ×2 (08:35→08:36)
--- NOTE | 2023-05-08 09:22 | PCM.PROG ---
Progress Note Progress Note for Day of Date of Exam: 05/08/23 Subjective Subjective: Patient is a 82-year-old female with a past medical history of hypertension, CHF, hyperlipidemia, tremors, admitted for acute cystitis and generalized weakness. This morning patient is resting comfortably in bed eating breakfast. No acute events overnight. She did work a little with physical therapy yesterday but still has significant weakness. Labs/imaging: WBC 5.5, hemoglobin 10.8, platelets 215, sodium 142, potassium 4.1, creatinine 1.01, glucose 112, Urine cultures pending. Patient is currently receiving IV antibiotics Invanz due to previous culture while awaiting new culture results. IV fluids D5 normal saline at [facility] and physical therapy for weakness. Home medications have been resumed. Otherwise continue with current treatment plan. Continue closely monitor and follow-up labs in the morning. Past Medical Family Social History Allergies: Allergies iron Allergy (Verified 06/10/22 01:52) latex Allergy (Verified 06/10/22 01:52) Review of Systems ROS changes noted: see HPI Vital Signs and I&O's Vital Signs: Vital Signs Temperature 97.8 F Temperature 97.6 F Pulse Rate [Left Radial] 73 Pulse Rate [Left Radial] 75 Respiratory Rate 20 Respiratory Rate 20 Blood Pressure [Left Arm] 157/71 Blood Pressure [Right Arm] 181/69 O2 Sat by Pulse Oximetry 94 O2 Sat by Pulse Oximetry 95 Intake and Output: Intake & Output 05/05/23 05/06/23 05/07/23 05/08/23 23:59 23:59 23:59 23:59 Intake Total 262 / 262 1353 / 1353 234 / 234 Output Total 550 / 550 350 / 350 Balance 262 / 262 803 / 803 -116 / -116 Physical Exam Oriented: Normal Eyes: Normal Ear: Normal Nose: Normal Throat: Normal Respiratory: Normal Cardiovascular: Normal : Normal Auscultation: Bowel Sounds: Normal Tenderness: Normal Skin: Normal Musculoskeletal: Normal Psychiatric: Normal Mood Description: Calm and Appropriate Affect: Normal Speech Pattern: Clear Laboratory and Diagnostics 05/08/23 04:30 05/08/23 04:30 Labs: 05/06/23 10:15 Urine,Clean Catch Urine Culture - Preliminary Laboratory WBC 5.5 X10^3/uL (3.6-10.0) 05/08/23 04:30 RBC 3.47 X10^6/uL (3.5-5.4) L 05/08/23 04:30 Hgb 10.8 g/dL (12.0-16.0) L 05/08/23 04:30 Hct 32.2 % (36.0-47.0) L 05/08/23 04:30 MCV 92.9 fL (80.0-100.0) 05/08/23 04:30 MCH 31.1 pg (27.0-34.0) 05/08/23 04:30 MCHC 33.5 g/dL (33.0-35.0) 05/08/23 04:30 RDW 15.0 % (11.6-16.5) 05/08/23 04:30 Plt Count 215 X10^3/uL (150.0-450.0) 05/08/23 04:30 MPV 9.2 fL (7.4-11.0) 05/08/23 04:30 Neut % (Auto) 64.5 % (42.0-75.0) 05/08/23 04:30 Lymph % (Auto) 18.8 % (21.0-51.0) L 05/08/23 04:30 [place] % (Auto) 12.3 % (0.0-13.0) 05/08/23 04:30 Eos % (Auto) 3.8 % (0.9-2.9) H 05/08/23 04:30 Baso % (Auto) 0.6 % (0.2-1.0) 05/08/23 04:30 Neut # (Auto) 3.6 x10^3/uL (2.2-4.8) 05/08/23 04:30 Lymph # (Auto) 1.0 X10^3/uL (1.3-2.9) L 05/08/23 04:30 [place] # (Auto) 0.7 x10^3/uL (0.3-0.8) 05/08/23 04:30 Eos # (Auto) 0.2 x10^3/uL (0.0-0.2) 05/08/23 04:30 Baso # (Auto) 0.0 X10^3/uL (0.0-0.1) 05/08/23 04:30 Absolute Nucleated RBC 0.1 /100WBC 05/08/23 04:30 Sodium 142 mmol/L (136-145) 05/08/23 04:30 Corrected Sodium 142 mmol/L (136-145) 05/08/23 04:30 Potassium 4.1 mmol/L (3.5-5.1) 05/08/23 04:30 Chloride 107 mmol/L (98-107) 05/08/23 04:30 Carbon Dioxide 24.1 mmol/L (21-32) 05/08/23 04:30 BUN 21 mg/dL (7-18) H 05/08/23 04:30 Creatinine 1.01 mg/dL (0.55-1.02) 05/08/23 04:30 Est GFR (MDRD) Af Amer > 60 (>60) 05/08/23 04:30 Est GFR (MDRD) Non-Af 56 (>60) L 05/08/23 04:30 Glucose 112 mg/dL (65-99) H 05/08/23 04:30 Calcium 8.9 mg/dL (8.5-10.1) 05/08/23 04:30 Corrected Calcium 10.1 mg/dL (8.5-10.1) 05/08/23 04:30 Magnesium 2.1 mg/dL (2.0-2.9) 05/06/23 11:15 Total Bilirubin 0.30 mg/dL (0.2-1.0) 05/08/23 04:30 AST 16 Units/L (15-37) 05/08/23 04:30 ALT 14 Units/L (12-78) 05/08/23 04:30 Alkaline Phosphatase 63 Units/L (46-116) 05/08/23 04:30 Troponin I High Sens 5.9 ng/L (4.0-60.0) 05/06/23 11:15 Total Protein 6.2 g/dL (6.4-8.2) L 05/08/23 04:30 Albumin 2.5 g/dL (3.4-5.0) L 05/08/23 04:30 Globulin 3.7 g/dL (2.5-4.5) 05/08/23 04:30 Albumin/Globulin Ratio 0.7 Ratio (1.1-2.1) L 05/08/23 04:30 Lipase 27 Units/L (16-77) 05/06/23 11:15 TSH 3rd Generation 1.077 uIU/mL (0.358-3.74) 05/06/23 11:15 Specimen Type Clean catch urine 05/06/23 10:15 Urine Color Yellow (YELLOW) 05/06/23 10:15 Urine Appearance Slightly hazy (CLEAR) 05/06/23 10:15 Urine pH 6.0 (5.0 - 8.0) 05/06/23 10:15 Ur Specific [place] 1.020 (1.000-1.030) 05/06/23 10:15 Urine Protein Negative (NEGATIVE) 05/06/23 10:15 Urine Glucose (UA) Negative (NEGATIVE) 05/06/23 10:15 Urine Ketones Negative (NEGATIVE) 05/06/23 10:15 Urine Blood 3+ (NEGATIVE) 05/06/23 10:15 Urine Nitrite Negative (NEGATIVE) 05/06/23 10:15 Urine Bilirubin Negative (NEGATIVE) 05/06/23 10:15 Urine Urobilinogen Normal (NORMAL) 05/06/23 10:15 Ur Leukocyte Esterase 3+ (NEGATIVE) 05/06/23 10:15 Urine RBC 0-2 /HPF (0-3) 05/06/23 10:15 Urine WBC 10-20 /HPF (0-5) A 05/06/23 10:15 Ur Squamous Epith Cells Few /HPF (NEGATIVE) 05/06/23 10:15 Urine Bacteria Trace /HPF (NEGATIVE) 05/06/23 10:15 Urine Yeast Rare /HPF (NEGATIVE) 05/06/23 10:15 Ur Culture Indicated? Yes/culture set up 05/06/23 10:15 Plan (1) Complicated urinary tract infection: Status: Acute Plan: Urine culture pending IV Invanz (2) Acute dehydration: Status: Acute Plan: IVF (3) Generalized weakness: Status: Acute Plan: PT ordered
[2023-05-08] MEDS ORDERED: NYSTATIN CREAM ONE (14:30)
[2023-05-08] MEDS: NYSTATIN CREAM TOP PRN (14:35)
[2023-05-08] MEDS: TYLENOL 325 MG TAB PO PRN (18:37)
[2023-05-08] MEDS ORDERED: ZESTRIL TAB 20 MG ONE (20:26)
[2023-05-08] MEDS: ULTRAM PO PRN (22:32)
[2023-05-09 04:47] LABS: BASOPHILS % (AUTO) 0.6 % (0.2-1.0); EOSINOPHILS # (AUTO) 0.1 x10^3/uL (0.0-0.2); HEMATOCRIT 30.1 % (36.0-47.0); HEMOGLOBIN 10.2 g/dL (12.0-16.0); LYMPHOCYTES % (AUTO) 17.9 % (21.0-51.0); MEAN CORPUSCULAR HEMOGLOBIN 31.2 pg (27.0-34.0); MEAN CORPUSCULAR HGB CONC 33.8 g/dL (33.0-35.0); MEAN CORPUSCULAR VOLUME 92.4 fL (80.0-100.0); MEAN PLATELET VOLUME 8.8 fL (7.4-11.0); MONOCYTES # (AUTO) 0.8 x10^3/uL (0.3-0.8); MONOCYTES % (AUTO) 14.9 % (0.0-13.0); NEUTROPHILS # (AUTO) 3.7 x10^3/uL (2.2-4.8); NEUTROPHILS % (AUTO) 64.6 % (42.0-75.0); PLATELET COUNT 225 X10^3/uL (150.0-450.0); RED BLOOD COUNT 3.25 X10^6/uL (3.5-5.4); RED CELL DISTRIBUTION WIDTH 15.2 % (11.6-16.5); WHITE BLOOD COUNT 5.7 X10^3/uL (3.6-10.0)
[2023-05-09 05:02] LABS: ALANINE AMINOTRANSFERASE 13 Units/L (12-78); ALBUMIN 2.3 g/dL (3.4-5.0); ALKALINE PHOSPHATASE 57 Units/L (46-116); ASPARTATE AMINO TRANSFERASE 13 Units/L (15-37); BLOOD UREA NITROGEN 19 mg/dL (7-18); CALCIUM 8.6 mg/dL (8.5-10.1); CARBON DIOXIDE 22.3 mmol/L (21-32); CHLORIDE 106 mmol/L (98-107); COR NA(FOR HYPERGLY) 141 mmol/L (136-145); CREATININE 1.04 mg/dL (0.55-1.02); GLUCOSE 116 mg/dL (65-99); POTASSIUM 3.9 mmol/L (3.5-5.1); SODIUM 141 mmol/L (136-145); TOTAL PROTEIN 5.9 g/dL (6.4-8.2); eGFR NON BLACK RACES 54 (>60)
[2023-05-09] MEDS ORDERED: ZESTRIL TAB 20 MG ONE ×2 (08:24→20:24)
--- NOTE | 2023-05-09 14:42 | PCM.PROG ---
Progress Note Progress Note for Day of Date of Exam: 05/09/23 Subjective Subjective: Patient is a 82-year-old female with a past medical history of hypertension, CHF, hyperlipidemia, tremors, admitted for acute cystitis and generalized weakness. This morning patient reports feeling better. No acute events overnight. Labs/imaging: WBC 5.7, hemoglobin 10.2, platelets 225, sodium 141, potassium 3.9, creatinine 1.04, glucose 116, Urine cultures revealed contamination. Patient is currently receiving IV antibiotics Invanz. IV fluids D5 normal saline at [facility] and physical therapy for weakness. Home medications have been resumed. Will discuss further with patient, and family along with pillowcase sewer about possible physical rehabilitation placement. Otherwise continue with current treatment plan. Continue closely monitor and follow-up labs in the morning. Past Medical Family Social History Allergies: Allergies iron Allergy (Verified 06/10/22 01:52) latex Allergy (Verified 06/10/22 01:52) Review of Systems ROS changes noted: see HPI Vital Signs and I&O's Vital Signs: Vital Signs Temperature 97.3 F Temperature 98.6 F Pulse Rate [Left Radial] 76 Pulse Rate [Left Radial] 75 Respiratory Rate 20 Respiratory Rate 20 Blood Pressure [Right Arm] 172/81 Blood Pressure [Right Arm] 138/67 O2 Sat by Pulse Oximetry 94 O2 Sat by Pulse Oximetry 93 Intake and Output: Intake & Output 05/06/23 05/07/23 05/08/23 05/09/23 23:59 23:59 23:59 23:59 Intake Total 262 / 262 1353 / 1353 1096 / 1096 113 / 113 Output Total 550 / 550 1550 / 1550 500 / 500 Balance 262 / 262 803 / 803 -454 / -454 -387 / -387 Physical Exam Oriented: Normal Eyes: Normal Ear: Normal Nose: Normal Throat: Normal Respiratory: Normal Cardiovascular: Normal : Normal Auscultation: Bowel Sounds: Normal Tenderness: Normal Skin: Normal Musculoskeletal: Normal Psychiatric: Normal Mood Description: Calm and Appropriate Affect: Normal Speech Pattern: Clear Laboratory and Diagnostics 05/09/23 04:18 05/09/23 04:18 Labs: 05/06/23 10:15 Urine,Clean Catch Urine Culture - Final Laboratory WBC 5.7 X10^3/uL (3.6-10.0) 05/09/23 04:18 RBC 3.25 X10^6/uL (3.5-5.4) L 05/09/23 04:18 Hgb 10.2 g/dL (12.0-16.0) L 05/09/23 04:18 Hct 30.1 % (36.0-47.0) L 05/09/23 04:18 MCV 92.4 fL (80.0-100.0) 05/09/23 04:18 MCH 31.2 pg (27.0-34.0) 05/09/23 04:18 MCHC 33.8 g/dL (33.0-35.0) 05/09/23 04:18 RDW 15.2 % (11.6-16.5) 05/09/23 04:18 Plt Count 225 X10^3/uL (150.0-450.0) 05/09/23 04:18 MPV 8.8 fL (7.4-11.0) 05/09/23 04:18 Neut % (Auto) 64.6 % (42.0-75.0) 05/09/23 04:18 Lymph % (Auto) 17.9 % (21.0-51.0) L 05/09/23 04:18 [place] % (Auto) 14.9 % (0.0-13.0) H 05/09/23 04:18 Eos % (Auto) 2.0 % (0.9-2.9) 05/09/23 04:18 Baso % (Auto) 0.6 % (0.2-1.0) 05/09/23 04:18 Neut # (Auto) 3.7 x10^3/uL (2.2-4.8) 05/09/23 04:18 Lymph # (Auto) 1.0 X10^3/uL (1.3-2.9) L 05/09/23 04:18 [place] # (Auto) 0.8 x10^3/uL (0.3-0.8) 05/09/23 04:18 Eos # (Auto) 0.1 x10^3/uL (0.0-0.2) 05/09/23 04:18 Baso # (Auto) 0.0 X10^3/uL (0.0-0.1) 05/09/23 04:18 Absolute Nucleated RBC 0.1 /100WBC 05/09/23 04:18 Sodium 141 mmol/L (136-145) 05/09/23 04:18 Corrected Sodium 141 mmol/L (136-145) 05/09/23 04:18 Potassium 3.9 mmol/L (3.5-5.1) 05/09/23 04:18 Chloride 106 mmol/L (98-107) 05/09/23 04:18 Carbon Dioxide 22.3 mmol/L (21-32) 05/09/23 04:18 BUN 19 mg/dL (7-18) H 05/09/23 04:18 Creatinine 1.04 mg/dL (0.55-1.02) H 05/09/23 04:18 Est GFR (MDRD) Af Amer > 60 (>60) 05/09/23 04:18 Est GFR (MDRD) Non-Af 54 (>60) L 05/09/23 04:18 Glucose 116 mg/dL (65-99) H 05/09/23 04:18 Calcium 8.6 mg/dL (8.5-10.1) 05/09/23 04:18 Corrected Calcium 10.0 mg/dL (8.5-10.1) 05/09/23 04:18 Magnesium 2.1 mg/dL (2.0-2.9) 05/06/23 11:15 Total Bilirubin 0.30 mg/dL (0.2-1.0) 05/09/23 04:18 AST 13 Units/L (15-37) L 05/09/23 04:18 ALT 13 Units/L (12-78) 05/09/23 04:18 Alkaline Phosphatase 57 Units/L (46-116) 05/09/23 04:18 Troponin I High Sens 5.9 ng/L (4.0-60.0) 05/06/23 11:15 Total Protein 5.9 g/dL (6.4-8.2) L 05/09/23 04:18 Albumin 2.3 g/dL (3.4-5.0) L 05/09/23 04:18 Globulin 3.6 g/dL (2.5-4.5) 05/09/23 04:18 Albumin/Globulin Ratio 0.6 Ratio (1.1-2.1) L 05/09/23 04:18 Lipase 27 Units/L (16-77) 05/06/23 11:15 TSH 3rd Generation 1.077 uIU/mL (0.358-3.74) 05/06/23 11:15 Specimen Type Clean catch urine 05/06/23 10:15 Urine Color Yellow (YELLOW) 05/06/23 10:15 Urine Appearance Slightly hazy (CLEAR) 05/06/23 10:15 Urine pH 6.0 (5.0 - 8.0) 05/06/23 10:15 Ur Specific [place] 1.020 (1.000-1.030) 05/06/23 10:15 Urine Protein Negative (NEGATIVE) 05/06/23 10:15 Urine Glucose (UA) Negative (NEGATIVE) 05/06/23 10:15 Urine Ketones Negative (NEGATIVE) 05/06/23 10:15 Urine Blood 3+ (NEGATIVE) 05/06/23 10:15 Urine Nitrite Negative (NEGATIVE) 05/06/23 10:15 Urine Bilirubin Negative (NEGATIVE) 05/06/23 10:15 Urine Urobilinogen Normal (NORMAL) 05/06/23 10:15 Ur Leukocyte Esterase 3+ (NEGATIVE) 05/06/23 10:15 Urine RBC 0-2 /HPF (0-3) 05/06/23 10:15 Urine WBC 10-20 /HPF (0-5) A 05/06/23 10:15 Ur Squamous Epith Cells Few /HPF (NEGATIVE) 05/06/23 10:15 Urine Bacteria Trace /HPF (NEGATIVE) 05/06/23 10:15 Urine Yeast Rare /HPF (NEGATIVE) 05/06/23 10:15 Ur Culture Indicated? Yes/culture set up 05/06/23 10:15 Plan (1) Complicated urinary tract infection: Status: Acute Plan: Urine culture pending IV Invanz (2) Acute dehydration: Status: Acute Plan: IVF (3) Generalized weakness: Status: Acute Plan: PT ordered
[2023-05-10 06:10] LABS: BASOPHILS % (AUTO) 0.4 % (0.2-1.0); EOSINOPHILS # (AUTO) 0.1 x10^3/uL (0.0-0.2); EOSINOPHILS % (AUTO) 2.1 % (0.9-2.9); HEMATOCRIT 30.3 % (36.0-47.0); HEMOGLOBIN 10.2 g/dL (12.0-16.0); LYMPHOCYTES # (AUTO) 1.1 X10^3/uL (1.3-2.9); LYMPHOCYTES % (AUTO) 17.4 % (21.0-51.0); MEAN CORPUSCULAR HEMOGLOBIN 31.3 pg (27.0-34.0); MEAN CORPUSCULAR HGB CONC 33.7 g/dL (33.0-35.0); MEAN CORPUSCULAR VOLUME 92.9 fL (80.0-100.0); MEAN PLATELET VOLUME 8.9 fL (7.4-11.0); MONOCYTES # (AUTO) 0.8 x10^3/uL (0.3-0.8); MONOCYTES % (AUTO) 13.8 % (0.0-13.0); NEUTROPHILS # (AUTO) 4.1 x10^3/uL (2.2-4.8); NEUTROPHILS % (AUTO) 66.3 % (42.0-75.0); PLATELET COUNT 239 X10^3/uL (150.0-450.0); RED BLOOD COUNT 3.26 X10^6/uL (3.5-5.4); RED CELL DISTRIBUTION WIDTH 14.8 % (11.6-16.5); WHITE BLOOD COUNT 6.1 X10^3/uL (3.6-10.0)
[2023-05-10 06:25] LABS: ALANINE AMINOTRANSFERASE 16 Units/L (12-78); ALBUMIN 2.3 g/dL (3.4-5.0); ALKALINE PHOSPHATASE 58 Units/L (46-116); ASPARTATE AMINO TRANSFERASE 15 Units/L (15-37); BLOOD UREA NITROGEN 22 mg/dL (7-18); CALCIUM 8.8 mg/dL (8.5-10.1); CARBON DIOXIDE 25.3 mmol/L (21-32); CHLORIDE 107 mmol/L (98-107); COR CA(FOR HYPOALB) 10.2 mg/dL (8.5-10.1); COR NA(FOR HYPERGLY) 143 mmol/L (136-145); GLUCOSE 114 mg/dL (65-99); POTASSIUM 4.3 mmol/L (3.5-5.1); SODIUM 143 mmol/L (136-145); TOTAL PROTEIN 6.2 g/dL (6.4-8.2); eGFR NON BLACK RACES 50 (>60)
[2023-05-10] MEDS: ZESTRIL TAB 20 MG ONE (08:54)
--- NOTE | 2023-05-10 10:11 | PCM.PROG ---
Progress Note Progress Note for Day of Date of Exam: 05/10/23 Subjective Subjective: Patient seen at bedside, no acute events overnight. She is feeling slightly better, still continues to feel weak. She did not ambulate much over the weekend. Family at bedside states patient was ambulating with a walker prior to this admission. She did work with PT on Wednesday. She is currently being treated for ESBL E.coli UTI with Invanz. Labs/imaging reviewed - Hgb 10.2 BUN/Cr: 22/1.10 Plan: continue Invanz. Continue home medications. PT/OT as tolerated. Encouraged sitting in chair and ambulate. Patient and family want patient to do swing bed for rehab. Patient will start tomorrow. Continue current treatment. Monitor AM labs/imaging. Past Medical Family Social History Allergies: Allergies iron Allergy (Verified 06/10/22 01:52) latex Allergy (Verified 06/10/22 01:52) Vital Signs and I&O's Vital Signs: Vital Signs Temperature 98.3 F Temperature 97.9 F Pulse Rate [Left Radial] 87 Pulse Rate [Left Radial] 82 Respiratory Rate 22 Respiratory Rate 20 Blood Pressure [Left Arm] 121/77 Blood Pressure [Right Arm] 152/72 O2 Sat by Pulse Oximetry 96 O2 Sat by Pulse Oximetry 94 Intake and Output: Intake & Output 05/07/23 05/08/23 05/09/23 05/10/23 23:59 23:59 23:59 23:59 Intake Total 1353 / 1353 1096 / 1096 909 / 909 51 / 51 Output Total 550 / 550 1550 / 1550 1200 / 1200 450 / 450 Balance 803 / 803 -454 / -454 -291 / -291 -399 / -399 Physical Exam Oriented: Normal Eyes: Normal Ear: Normal Nose: Normal Throat: Normal Respiratory: Normal Cardiovascular: Normal Auscultation: Bowel Sounds: Normal Palpation: Normal Tenderness: Normal Skin: Normal Musculoskeletal: Normal Psychiatric: Normal Mood Description: Calm and Appropriate Affect: Normal Speech Pattern: Clear Laboratory and Diagnostics 05/10/23 05:34 05/10/23 05:34 Labs: 05/06/23 10:15 Urine,Clean Catch Urine Culture - Final Laboratory WBC 6.1 X10^3/uL (3.6-10.0) 05/10/23 05:34 RBC 3.26 X10^6/uL (3.5-5.4) L 05/10/23 05:34 Hgb 10.2 g/dL (12.0-16.0) L 05/10/23 05:34 Hct 30.3 % (36.0-47.0) L 05/10/23 05:34 MCV 92.9 fL (80.0-100.0) 05/10/23 05:34 MCH 31.3 pg (27.0-34.0) 05/10/23 05:34 MCHC 33.7 g/dL (33.0-35.0) 05/10/23 05:34 RDW 14.8 % (11.6-16.5) 05/10/23 05:34 Plt Count 239 X10^3/uL (150.0-450.0) 05/10/23 05:34 MPV 8.9 fL (7.4-11.0) 05/10/23 05:34 Neut % (Auto) 66.3 % (42.0-75.0) 05/10/23 05:34 Lymph % (Auto) 17.4 % (21.0-51.0) L 05/10/23 05:34 [place] % (Auto) 13.8 % (0.0-13.0) H 05/10/23 05:34 Eos % (Auto) 2.1 % (0.9-2.9) 05/10/23 05:34 Baso % (Auto) 0.4 % (0.2-1.0) 05/10/23 05:34 Neut # (Auto) 4.1 x10^3/uL (2.2-4.8) 05/10/23 05:34 Lymph # (Auto) 1.1 X10^3/uL (1.3-2.9) L 05/10/23 05:34 [place] # (Auto) 0.8 x10^3/uL (0.3-0.8) 05/10/23 05:34 Eos # (Auto) 0.1 x10^3/uL (0.0-0.2) 05/10/23 05:34 Baso # (Auto) 0.0 X10^3/uL (0.0-0.1) 05/10/23 05:34 Absolute Nucleated RBC 0.1 /100WBC 05/10/23 05:34 Sodium 143 mmol/L (136-145) 05/10/23 05:34 Corrected Sodium 143 mmol/L (136-145) 05/10/23 05:34 Potassium 4.3 mmol/L (3.5-5.1) 05/10/23 05:34 Chloride 107 mmol/L (98-107) 05/10/23 05:34 Carbon Dioxide 25.3 mmol/L (21-32) 05/10/23 05:34 BUN 22 mg/dL (7-18) H 05/10/23 05:34 Creatinine 1.10 mg/dL (0.55-1.02) H 05/10/23 05:34 Est GFR (MDRD) Af Amer > 60 (>60) 05/10/23 05:34 Est GFR (MDRD) Non-Af 50 (>60) L 05/10/23 05:34 Glucose 114 mg/dL (65-99) H 05/10/23 05:34 Calcium 8.8 mg/dL (8.5-10.1) 05/10/23 05:34 Corrected Calcium 10.2 mg/dL (8.5-10.1) H 05/10/23 05:34 Magnesium 2.1 mg/dL (2.0-2.9) 05/06/23 11:15 Total Bilirubin 0.20 mg/dL (0.2-1.0) 05/10/23 05:34 AST 15 Units/L (15-37) 05/10/23 05:34 ALT 16 Units/L (12-78) 05/10/23 05:34 Alkaline Phosphatase 58 Units/L (46-116) 05/10/23 05:34 Troponin I High Sens 5.9 ng/L (4.0-60.0) 05/06/23 11:15 Total Protein 6.2 g/dL (6.4-8.2) L 05/10/23 05:34 Albumin 2.3 g/dL (3.4-5.0) L 05/10/23 05:34 Globulin 3.9 g/dL (2.5-4.5) 05/10/23 05:34 Albumin/Globulin Ratio 0.6 Ratio (1.1-2.1) L 05/10/23 05:34 Lipase 27 Units/L (16-77) 05/06/23 11:15 TSH 3rd Generation 1.077 uIU/mL (0.358-3.74) 05/06/23 11:15 Specimen Type Clean catch urine 05/06/23 10:15 Urine Color Yellow (YELLOW) 05/06/23 10:15 Urine Appearance Slightly hazy (CLEAR) 05/06/23 10:15 Urine pH 6.0 (5.0 - 8.0) 05/06/23 10:15 Ur Specific [place] 1.020 (1.000-1.030) 05/06/23 10:15 Urine Protein Negative (NEGATIVE) 05/06/23 10:15 Urine Glucose (UA) Negative (NEGATIVE) 05/06/23 10:15 Urine Ketones Negative (NEGATIVE) 05/06/23 10:15 Urine Blood 3+ (NEGATIVE) 05/06/23 10:15 Urine Nitrite Negative (NEGATIVE) 05/06/23 10:15 Urine Bilirubin Negative (NEGATIVE) 05/06/23 10:15 Urine Urobilinogen Normal (NORMAL) 05/06/23 10:15 Ur Leukocyte Esterase 3+ (NEGATIVE) 05/06/23 10:15 Urine RBC 0-2 /HPF (0-3) 05/06/23 10:15 Urine WBC 10-20 /HPF (0-5) A 05/06/23 10:15 Ur Squamous Epith Cells Few /HPF (NEGATIVE) 05/06/23 10:15 Urine Bacteria Trace /HPF (NEGATIVE) 05/06/23 10:15 Urine Yeast Rare /HPF (NEGATIVE) 05/06/23 10:15 Ur Culture Indicated? Yes/culture set up 05/06/23 10:15 Plan (1) Generalized weakness: Status: Acute (2) Complicated urinary tract infection: Status: Acute (3) Acute dehydration: Status: Acute Plan: IVF (4) Anemia: Status: Acute Qualifiers: Anemia type: iron deficiency Iron deficiency anemia type: chronic blood loss Qualified Code(s): D50.0 - Iron deficiency anemia secondary to blood loss (chronic) (5) Hypertension: Status: Chronic Qualifiers: Hypertension type: primary hypertension Qualified Code(s): I10 - Essential (primary) hypertension
[2023-05-10] MEDS ORDERED: ZESTRIL TAB 20 MG ONE (21:26)
[2023-05-11 06:07] LABS: BASOPHILS % (AUTO) 0.5 % (0.2-1.0); EOSINOPHILS # (AUTO) 0.1 x10^3/uL (0.0-0.2); EOSINOPHILS % (AUTO) 1.8 % (0.9-2.9); HEMATOCRIT 28.9 % (36.0-47.0); HEMOGLOBIN 9.7 g/dL (12.0-16.0); LYMPHOCYTES # (AUTO) 1.4 X10^3/uL (1.3-2.9); LYMPHOCYTES % (AUTO) 21.6 % (21.0-51.0); MEAN CORPUSCULAR HGB CONC 33.7 g/dL (33.0-35.0); MEAN PLATELET VOLUME 8.9 fL (7.4-11.0); MONOCYTES # (AUTO) 0.8 x10^3/uL (0.3-0.8); MONOCYTES % (AUTO) 12.1 % (0.0-13.0); NEUTROPHILS # (AUTO) 4.1 x10^3/uL (2.2-4.8); PLATELET COUNT 252 X10^3/uL (150.0-450.0); RED BLOOD COUNT 3.15 X10^6/uL (3.5-5.4); RED CELL DISTRIBUTION WIDTH 14.7 % (11.6-16.5); WHITE BLOOD COUNT 6.4 X10^3/uL (3.6-10.0)
[2023-05-11 06:17] LABS: ALANINE AMINOTRANSFERASE 15 Units/L (12-78); ALBUMIN 2.1 g/dL (3.4-5.0); ALKALINE PHOSPHATASE 54 Units/L (46-116); ASPARTATE AMINO TRANSFERASE 17 Units/L (15-37); BLOOD UREA NITROGEN 24 mg/dL (7-18); CALCIUM 8.8 mg/dL (8.5-10.1); CARBON DIOXIDE 24.6 mmol/L (21-32); CHLORIDE 106 mmol/L (98-107); COR CA(FOR HYPOALB) 10.3 mg/dL (8.5-10.1); COR NA(FOR HYPERGLY) 141 mmol/L (136-145); CREATININE 1.05 mg/dL (0.55-1.02); GLUCOSE 118 mg/dL (65-99); SODIUM 141 mmol/L (136-145); TOTAL PROTEIN 6.1 g/dL (6.4-8.2); eGFR NON BLACK RACES 53 (>60)
[2023-05-11] MEDS: ZESTRIL TAB 20 MG ONE (09:06)
--- NOTE | 2023-05-11 09:54 | PCM.PROG ---
Progress Note Progress Note for Day of Date of Exam: 05/11/23 Subjective Subjective: Patient seen at bedside, no acute events overnight. She is now swing bed status for inpatient rehab due to generalized weakness. She is currently being treated for ESBL E.coli UTI with Invanz. She states she is feeling a lot better and is working with PT this morning. Labs/imaging reviewed - Hgb 9.7 BUN/Cr: 24/1.05 Plan: continue Invanz. Continue home medications. Continue physical therapy as tolerated. Monitor labs/imaging prn. Past Medical Family Social History Allergies: Allergies iron Allergy (Verified 06/10/22 01:52) latex Allergy (Verified 06/10/22 01:52) Vital Signs and I&O's Vital Signs: Vital Signs Temperature 97.3 F Temperature 98.2 F Pulse Rate [Left Radial] 70 Pulse Rate [Left Radial] 78 Respiratory Rate 18 Respiratory Rate 20 Blood Pressure [Left Arm] 113/55 Blood Pressure [Left Arm] 143/65 O2 Sat by Pulse Oximetry 95 O2 Sat by Pulse Oximetry 96 Intake and Output: Intake & Output 05/08/23 05/09/23 05/10/23 05/11/23 23:59 23:59 23:59 23:59 Intake Total 1096 / 1096 909 / 909 845 / 845 200 / 200 Output Total 1550 / 1550 1200 / 1200 1500 / 1500 Balance -454 / -454 -291 / -291 -655 / -655 200 / 200 Physical Exam Oriented: Normal Eyes: Normal Ear: Normal Nose: Normal Throat: Normal Respiratory: Normal Cardiovascular: Normal Auscultation: Bowel Sounds: Normal Tenderness: Normal Skin: Normal Musculoskeletal: Normal Psychiatric: Normal Mood Description: Calm and Appropriate Affect: Normal Speech Pattern: Clear Laboratory and Diagnostics 05/11/23 05:14 05/11/23 05:14 Labs: 05/06/23 10:15 Urine,Clean Catch Urine Culture - Final Laboratory WBC 6.4 X10^3/uL (3.6-10.0) 05/11/23 05:14 RBC 3.15 X10^6/uL (3.5-5.4) L 05/11/23 05:14 Hgb 9.7 g/dL (12.0-16.0) L 05/11/23 05:14 Hct 28.9 % (36.0-47.0) L 05/11/23 05:14 MCV 92.0 fL (80.0-100.0) 05/11/23 05:14 MCH 31.0 pg (27.0-34.0) 05/11/23 05:14 MCHC 33.7 g/dL (33.0-35.0) 05/11/23 05:14 RDW 14.7 % (11.6-16.5) 05/11/23 05:14 Plt Count 252 X10^3/uL (150.0-450.0) 05/11/23 05:14 MPV 8.9 fL (7.4-11.0) 05/11/23 05:14 Neut % (Auto) 64.0 % (42.0-75.0) 05/11/23 05:14 Lymph % (Auto) 21.6 % (21.0-51.0) 05/11/23 05:14 [place] % (Auto) 12.1 % (0.0-13.0) 05/11/23 05:14 Eos % (Auto) 1.8 % (0.9-2.9) 05/11/23 05:14 Baso % (Auto) 0.5 % (0.2-1.0) 05/11/23 05:14 Neut # (Auto) 4.1 x10^3/uL (2.2-4.8) 05/11/23 05:14 Lymph # (Auto) 1.4 X10^3/uL (1.3-2.9) 05/11/23 05:14 [place] # (Auto) 0.8 x10^3/uL (0.3-0.8) 05/11/23 05:14 Eos # (Auto) 0.1 x10^3/uL (0.0-0.2) 05/11/23 05:14 Baso # (Auto) 0.0 X10^3/uL (0.0-0.1) 05/11/23 05:14 Absolute Nucleated RBC 0.0 /100WBC 05/11/23 05:14 Sodium 141 mmol/L (136-145) 05/11/23 05:14 Corrected Sodium 141 mmol/L (136-145) 05/11/23 05:14 Potassium 4.0 mmol/L (3.5-5.1) 05/11/23 05:14 Chloride 106 mmol/L (98-107) 05/11/23 05:14 Carbon Dioxide 24.6 mmol/L (21-32) 05/11/23 05:14 BUN 24 mg/dL (7-18) H 05/11/23 05:14 Creatinine 1.05 mg/dL (0.55-1.02) H 05/11/23 05:14 Est GFR (MDRD) Af Amer > 60 (>60) 05/11/23 05:14 Est GFR (MDRD) Non-Af 53 (>60) L 05/11/23 05:14 Glucose 118 mg/dL (65-99) H 05/11/23 05:14 Calcium 8.8 mg/dL (8.5-10.1) 05/11/23 05:14 Corrected Calcium 10.3 mg/dL (8.5-10.1) H 05/11/23 05:14 Magnesium 2.1 mg/dL (2.0-2.9) 05/06/23 11:15 Total Bilirubin 0.20 mg/dL (0.2-1.0) 05/11/23 05:14 AST 17 Units/L (15-37) 05/11/23 05:14 ALT 15 Units/L (12-78) 05/11/23 05:14 Alkaline Phosphatase 54 Units/L (46-116) 05/11/23 05:14 Troponin I High Sens 5.9 ng/L (4.0-60.0) 05/06/23 11:15 Total Protein 6.1 g/dL (6.4-8.2) L 05/11/23 05:14 Albumin 2.1 g/dL (3.4-5.0) L 05/11/23 05:14 Globulin 4.0 g/dL (2.5-4.5) 05/11/23 05:14 Albumin/Globulin Ratio 0.5 Ratio (1.1-2.1) L 05/11/23 05:14 Lipase 27 Units/L (16-77) 05/06/23 11:15 TSH 3rd Generation 1.077 uIU/mL (0.358-3.74) 05/06/23 11:15 Specimen Type Clean catch urine 05/06/23 10:15 Urine Color Yellow (YELLOW) 05/06/23 10:15 Urine Appearance Slightly hazy (CLEAR) 05/06/23 10:15 Urine pH 6.0 (5.0 - 8.0) 05/06/23 10:15 Ur Specific [place] 1.020 (1.000-1.030) 05/06/23 10:15 Urine Protein Negative (NEGATIVE) 05/06/23 10:15 Urine Glucose (UA) Negative (NEGATIVE) 05/06/23 10:15 Urine Ketones Negative (NEGATIVE) 05/06/23 10:15 Urine Blood 3+ (NEGATIVE) 05/06/23 10:15 Urine Nitrite Negative (NEGATIVE) 05/06/23 10:15 Urine Bilirubin Negative (NEGATIVE) 05/06/23 10:15 Urine Urobilinogen Normal (NORMAL) 05/06/23 10:15 Ur Leukocyte Esterase 3+ (NEGATIVE) 05/06/23 10:15 Urine RBC 0-2 /HPF (0-3) 05/06/23 10:15 Urine WBC 10-20 /HPF (0-5) A 05/06/23 10:15 Ur Squamous Epith Cells Few /HPF (NEGATIVE) 05/06/23 10:15 Urine Bacteria Trace /HPF (NEGATIVE) 05/06/23 10:15 Urine Yeast Rare /HPF (NEGATIVE) 05/06/23 10:15 Ur Culture Indicated? Yes/culture set up 05/06/23 10:15 Plan (1) Generalized weakness: Status: Acute Plan: PT ordered (2) Complicated urinary tract infection: Status: Acute (3) Acute dehydration: Status: Acute (4) Anemia: Status: Acute Qualifiers: Anemia type: iron deficiency Iron deficiency anemia type: chronic blood loss Qualified Code(s): D50.0 - Iron deficiency anemia secondary to blood loss (chronic) (5) Hypertension: Status: Chronic Qualifiers: Hypertension type: primary hypertension Qualified Code(s): I10 - Essential (primary) hypertension
[2023-05-11 13:04] VITALS: BP 123/59; PULSE 79; RESP 19; TEMP 97.4; O2SAT 96
== END 2023-05-11 12:59 | disposition swing bed (61) | DRG 690 ==
LOC: ER 09:30 → MED/SURG 09:30 → OBSVTOIN 12:52 → MED/SURG 14:31
PROVIDERS: ADMIT Internal Medicine; ATTEND Internal Medicine
DX: E78.5 Hyperlipidemia, unspecified; B96.29 Other Escherichia coli [E. coli] as the cause of diseases classified elsewhere; R53.1 Weakness; I10 Essential (primary) hypertension; E86.0 Dehydration; R30.0 Dysuria; M25.562 Pain in left knee; N39.0 Urinary tract infection, site not specified; K21.9 Gastro-esophageal reflux disease without esophagitis; R06.02 Shortness of breath; Z66 Do not resuscitate; M25.552 Pain in left hip; Z16.12 Extended spectrum beta lactamase (ESBL) resistance; G25.2 Other specified forms of tremor; R26.89 Other abnormalities of gait and mobility; D50.0 Iron deficiency anemia secondary to blood loss (chronic); Z91.81 History of falling

== ENCOUNTER 2023-05-11 13:00 | Inpatient (IN) ==
[2023-05-11] MEDS ORDERED: NYSTATIN CREAM TOP PRN (14:26)
--- NOTE | 2023-05-11 15:26 | PT/OTEVAL ---
PT/OT OBJECTIVES - HISTORY Prescription: PT Consult Diagnosis: Complicated UTI, Deconditioning Precautions: Fall Risk PMH: CHF, Dementia, Depression, GERD, Dyslipidemia, HTN, Tremors Prior Level of Function: Assistance Required Other: Per patient (and caregiver present in room)- Prior to hospitalization, pt lived at home in single story home with 3 steps to enter with LHR. Pt had paid caregivers 9-5 Wednesday-Wednesday and then family support the rest of the time. Pt was able to perform mobility tasks with supervision/touch assist with rollator until ~1.5 weeks ago when pt had a fall at home and has since been declining. DME: Rollator, Wheelchair, Shower Chair. History of Present Illness: Pt is an 82 year old female who was initially seen in the ER on 05/04/2023 s/p fall at home with difficulty moving and was found to have a UTI and discharged home. Pt returned to the hospital on 05/06/2023 due to continued progressive weakness and inability to perform functional mobility tasks despite assistance from family/caregivers. Pt was diagnosed with a complicated UTI and treated. Due to decline in strength and overall independence with functional mobility tasks from PLOF, pt was admitted to swing bed program to address deficits and facilitate highest level of function prior to discharge back to home environment. - COGNITION Mental Status: Alert, Oriented, Name, Place Communication Status: Verbal Ability to Follow Directions: 1 Step Affect: Calm - PAIN Left Knee Pain Scale: Moderate Comments: Reports no pain at rest, but moderate pain in WB positions Right Knee Pain Scale: Moderate Comments: Reports no pain at rest, but moderate pain in WB positions - BED MOBILITY Rolling: Minimal, Maximum Rolling Comment: Min assist to R, Max assist to L Scooting: Maximum, x2 - TRANSFERS Supine to Sit: Moderate, x2 Supine Comment: For trunk control and LE management Sit to Stand: Maximum, x2 Sit to Stand Comment: Unable to achieve full upright standing position. Sit or Stand Pivot: Not Tested Sit or Stand Pivot Comment: Unable to move BLEs to perform. Sliding board mod/max x 2 for safety Toileting: Not Tested Safety Comment: Pt is noted to be fearful of mobility tasks which may limit progress Safety (requires cues for:): Hand Placement Precaution - BALANCE Static Sitting: Good Standing: Total Assist Dynamic Sitting: Fair Standing: Not Tested - NEUROMOTOR/SENSATION Herminio. Lower Ext Sensation: WFL Coordination: WFL Proprioception: WFL - ROM Bilateral LE Muscle Tone: WFL Comment: Pt does have decreased ankle DF- also noted with BLE swelling. - STRENGTH Bilateral LE Other comment: 3-/5 - GAIT Comments: Unable to perform gait tasks at time of evaluation. - TREATMENT Date: 05/11/23 Time: 13:00 Treatment Type: Evaluation - TOTAL TREATMENT TIME Total Time: 75 - POST ASSESSMENT Post Assessment Comment: Pt was found supine in bed in room with caregiver present and agreeable to participation in PT services. Pt able to provide history & PLOF information with pt caregiver confirming information provided. Pt able to roll to R with min assist and use of bedrail and max assist to roll to L with use of siderail. Pt mod assist x 2 for transition from supine to sitting EOB with minimal ability to use LEs to assist. Once at EOB, pt able to maintain sitting balance without difficulty. Attempted sit to stand transfer from EOB with max assist x 2- pt unable to achieve upright standing posture with pt flexed at knees, hips and back with head also down in flexed position. Cued pt for correction; however, required max assist to attempt to facilitate improved posture at which time pt stated "I'm tired and need to rest." Pt assisted back to EOB with max assist x 2. Following prolonged rest break, pt education on sliding board to promote increased independence with mobility tasks and allow for OOB activity. Pt agreeable to try- pt required mod to max assist x 2 for sliding board transfer from EOB to recliner chair. Pt unable to tolerate recliner in fully reclined position due to tightness/discomfort with knee extension. Pt mod assist x 2 for return transfer from recliner to bed with use of sliding board with improved confidence noted on 2nd transfer. Discussion with pt re: discharge plans. Currently, plan is to return home with continued caregiver and family assist. Discussed ramp with pt for increased safety at home with pt with pt stating she will talk with her son. Pt would benefit from participation in PT services to address deficits and facilitate highest level of function and safe discharge planning. - EXIT DISPOSITION Exit Position: BED Call light in reach: Yes Comments: Caregiver present in room. PT/OT ASSESSMENT - PT Problem List: Decreased Bed Mobility, Decreased Transfers, Decreased Gait, Decreased Balance, Decreased Safety, Decreased LE Strength - PT GOALS Short Term Goals Days: 10 Mobility: Pt will perform bed mobility tasks with max assist x 1 Transfers: Pt will perform sit to stand transfers with max assist x 1 Gait: - Balance: Pt will increase static standing balance to poor+/fair- x 2 minutes ROM/Strength: Pt will increase BLE strength by 1 MMT grade Others: Pt will perform stand pivot transfers with mod assist x 2 Manager Surgical Goals Days: 20 Mobility: Pt will perform bed mobility with min assist x 1 Transfers: Pt will perform sit to stand transfers with min assist x 1 Gait: Pt will ambulate 10ft with FWW with mod assist x 1 Balance: Pt will increase static standing balance to fair+ ROM/Strength: Pt will increase BLE strength to 4+/5 Others: Pt will perform stand pivot transfers with mod assist x 1 - PATIENT GOALS Patient/Family Goals: "I want to get better to go home" Goals Discussed with Patient/Family: Yes Rehabilitation Potential: Fair to good to meet stated goals Justification for Potential: Facilitate highest level of function and safe discharge planning Weakness and Barriers: Decreased Participation If yes, explain: Pt does show lack of motivation for participation at times. - PLAN Suggested Treatment Plan: Bed Mobility Training, Therapeutic Activity, Gait Training, Neuro Re-education, Therapeutic Ex with HEP, Patient Education, Family Education - FREQUENCY AND DURATION PT: 5-6x per week x 20 days Expected Continuation of Care at Discharge: Home Health
[2023-05-11] MEDS ORDERED: ZESTRIL TAB 20 MG ONE (20:28)
[2023-05-11] MEDS: NEURONTIN CAP 300 MG PO SCH (20:41)
[2023-05-11] MEDS: CRESTOR TAB 10 MG PO SCH (20:41)
[2023-05-11] MEDS: ZESTRIL TAB 20 MG PO SCH (20:41)
[2023-05-11] MEDS: PriLOSEC PO SCH (20:42)
[2023-05-11] MEDS: NAMENDA TAB 10 MG PO SCH (20:42)
[2023-05-11] MEDS: MYSOLINE PO SCH (20:43)
[2023-05-12] MEDS ORDERED: ZESTRIL TAB 20 MG ONE ×2 (09:16→19:59)
[2023-05-12] MEDS: EFFEXOR XR 37.5 MG CAP 24-HR PO SCH (09:46)
[2023-05-12] MEDS: SINGULAIR TAB 10 MG PO SCH (09:46)
[2023-05-12] MEDS: MICRO K EXTEN CAP 10 MEQ PO SCH (09:46)
[2023-05-12] MEDS: ASPIRIN EC 81 MG PO SCH (09:47)
[2023-05-12] MEDS: LOVENOX INJ 40 MG SYR SC SCH (09:48)
[2023-05-12] MEDS: INVanz INJ 1 GRAM VIAL 1 G in NS 100 ML IV 100 ML IV SCH (09:48)
[2023-05-12] MEDS: LASIX PO SCH (09:49)
[2023-05-12 15:38] VITALS: BMI 27.9
[2023-05-13] MEDS: ULTRAM PO PRN (09:19)
--- NOTE | 2023-05-13 10:09 | PCM.PROG ---
Progress Note Progress Note for Day of Date of Exam: 05/13/23 Subjective Subjective: Pt is a 82 year old female admitted for swing bed status for physical rehab. This morning she is resting in bed. No acute events overnight. She continues to work with physical therapy to improve her strength. She is complaining of her left foot having a little swelling. No other concerns. Will continue home medications and rehab. Will give IV lasix 20mg x 1 dose to help with edema. She is on anticoagulation and do not suspect DVT at this time. Likely venous insufficiency. Otherwise, continue with current treatment plan. Continue to monitor patient. Past Medical Family Social History Allergies: Allergies iron Allergy (Verified 06/10/22 01:52) latex Allergy (Verified 06/10/22 01:52) Review of Systems ROS changes noted: see HPI Vital Signs and I&O's Vital Signs: Vital Signs Respiratory Rate 20 Intake and Output: Intake & Output 05/10/23 05/11/23 05/12/23 05/13/23 23:59 23:59 23:59 23:59 Intake Total 1247 / 1247 1640 / 1640 550 / 550 Output Total 800 / 800 1200 / 1200 Balance 447 / 447 440 / 440 550 / 550 Physical Exam Oriented: Normal Eyes: Normal Nose: Normal Respiratory: Normal Cardiovascular: Normal Auscultation: Bowel Sounds: Normal Palpation: Normal Tenderness: Normal Skin: Normal Musculoskeletal: Normal Speech Pattern: Clear Laboratory and Diagnostics Labs: Laboratory POC Glucose (mg/dL) 110 mg/dL (65-99) H 05/12/23 16:11 Plan (1) Generalized weakness: Status: Acute Narrative Support Text: Continue PT
[2023-05-13] MEDS: LASIX IVP ONE (10:45)
--- NOTE | 2023-05-13 10:59 | PT/OTEVAL ---
PT/OT OBJECTIVES - HISTORY Prescription: OT Consult Diagnosis: Complicated UTI, Deconditioning Precautions: Fall risk, O2 PMH: CHF, depression, GERD, dyslipidemia, HTN, tremors. Prior Level of Function: Assistance Required Other: Per pt, (her caregiver was present during OT eval). Pt was prevously hospitalized. Pt lives in a 1 story home with 3 steps to enter with a handrail on the L side going up. Pt has caregivers that are with her Wednesday-Wednesday from 9am to 5 pm and also has family to care for her after that. Pt was able to perform ADL self care skills with A from CGs. She was AMB with a rollator till ~ 1.5 weeks ago, when pt has a fall at home and has since been declining. DME includes a rollator, w/c, and shower chair. History of Present Illness: Pt is a 82 year old female who was initially seen in the ER on 05/04/23 s/p fall at home with difficulty moving and was found to have a UTI and was d/cd home. Pt returned to the hospital on 05/06/23 due to progre ssive weakness and inability to perform PLOF tasks despite extensive assistance from family/CGs. Pt was dx with a complicated UTI and treated. Due to decline in BUE MMT, and overall independence with ADL tasks, pt was admitted to swing bed program to address deficits and facilitate highest level of ADL function needed for safe d/c planning. - COGNITION Mental Status: Alert, Oriented, Name, Place, Purpose Communication Status: Verbal Ability to Follow Directions: 1 Step Affect: Calm - PAIN Left Knee Pain Scale: Moderate Comments: Reports no pain at rest, but moderate pain in WB positions Right Knee Pain Scale: Moderate Comments: Reports no pain at rest, but moderate pain in WB positions - BED MOBILITY Rolling: Maximum Rolling Comment: with max VC for hand placement and seqencing Scooting: Maximum - TRANSFERS Supine to Sit: Maximum Sit to Stand: Maximum, x2 Sit or Stand Pivot: Maximum, x2 Sit or Stand Pivot Comment: Sliding board Toileting: Maximum Safety (requires cues for:): Hand Placement Precaution - ADL'S Grooming: Minimum Upper Body ADL: Minimum Lower Body ADL: Maximum Toileting: Maximum Bathing: Maximum Hygeine: Maximum - BALANCE Dynamic Sitting: Fair Standing: Not Tested Static Sitting: Fair Standing: Total Assist Balance Comment: Pt requried MaxA for bed mobility with max VCs to roll to sife reaching across railing followed by moving LEs off EOB; Once sitting, VCs given for neutral head alingement and to use UEs to assist in static balance. Sit to stands x2 Max-Dependent x 2. Pt wanted lean on RW with forearms and was given Max VCs for proper hand placement. - NEUROMOTOR/SENSATION Herminio. Upper Ext Sensation: WFL Coordination: WFL Herminio. Lower Ext Sensation: WFL Coordination: WFL Proprioception: WFL - ROM Bilateral UE ROM: WFL - STRENGTH Bilateral UE Strength Number: 3 Other comment: 3-/5 Bilateral LE Strength Number: 3 Other comment: 3-/5 - TREATMENT Date: 05/13/23 Time: 09:05 Treatment Type: Evaluation Treatment Provided: Therapeutic Excersises, Other - TOTAL TREATMENT TIME Total Time: 90 - POST ASSESSMENT Post Assessment Comment: Pt was seen for skilled OT to assess CLOF. Pt was agreeable to participate with skilled OT. Pt is max/mod A for bed mobility and supine to sit. Pt donned pants while in bed with log rolling and max A. Brief change and cleaning was max A. Max VC and mod TC for sitting up EOB. Pt was noted to lean backwards while sitting EOB. Max VC for midline sitting. Sitting up EOB pt donned UB clothing with min A and mod VC. Time was given for task. Pt completed 2 STS with RW and max A, using UE to lean on RW for support. Pt used the sliding board to transfer to recliner with max A. Pt scooted back in chair with max A. All needs met at this time with call light within reach and caregiver present with pt. - EXIT DISPOSITION Exit Position: CHAIR Call light in reach: Yes PT/OT ASSESSMENT - OT Problem List: Decreased Mobility ADL's, Decreased Safety Aware, Decreased Dressing, Decreased Bathing, Decreased Grooming, Decreased UE Strength - PT GOALS Short Term Goals Days: 10 Mobility: Pt will perform bed mobility tasks with max assist x 1 Transfers: Pt will perform sit to stand transfers with max assist x 1 Gait: - Balance: Pt will increase static standing balance to poor+/fair- x 2 minutes ROM/Strength: Pt will increase BLE strength by 1 MMT grade Others: Pt will perform stand pivot transfers with mod assist x 2 Nursing Home Goals Days: 20 Mobility: Pt will perform bed mobility with min assist x 1 Transfers: Pt will perform sit to stand transfers with min assist x 1 Gait: Pt will ambulate 10ft with FWW with mod assist x 1 Balance: Pt will increase static standing balance to fair+ ROM/Strength: Pt will increase BLE strength to 4+/5 Others: Pt will perform stand pivot transfers with mod assist x 1 - OT GOALS Airplane Patrol Pilot Goals Days: 20 Mobility for ADL's: Pt to improve functional BSC transfers with RW and min A Safety Awareness: Pt to improve safety awareness to G Dressing: Pt to improve LB dressing to min A Bathing: Pt to improve overall bathing to min A Grooming: Pt to improve grooming to supv A Upper Ext. Strength/Use: Pt to improve BUE MMT to 4+/5 Other: Pt to improve functional act tolerance to G. Short Term Goals Days: 10 Mobility for ADL's: Pt to improve functional BSC transfers with RW and mod A Safety Awareness: Pt to identify 3/5 safety concerns and problem solve concerns Dressing: Pt to improve UB dressing to supv A Bathing: Pt to improve overall bathing to mod A Grooming: Pt to improve oral care to supv A Upper Ext. Strength/Use: Pt to improve BUE MMT to 4/5 - PATIENT GOALS Patient/Family Goals: I want to fell better and go home Goals Discussed with Patient/Family: Yes Rehabilitation Potential: Good to meet stated goals Justification for Potential: To faciltiate highest level of ADL function needed for safe d/c planning Weakness and Barriers: Pain - PLAN Suggested Treatment Plan: Therapeutic Activity, Self Care Training, Neuro Re- education, Therapeutic Ex with HEP, Patient Education, Family Education - FREQUENCY AND DURATION OT: 3-5x a week x 20 days Expected Continuation of Care at Discharge: Home Health
[2023-05-13] MEDS: ZESTRIL TAB 20 MG ONE (11:16)
[2023-05-13] MEDS ORDERED: ZESTRIL TAB 20 MG ONE (19:50)
[2023-05-13] MEDS: TYLENOL 325 MG TAB PO PRN (20:43)
[2023-05-14 05:57] LABS: EOSINOPHILS # (AUTO) 0.2 x10^3/uL (0.0-0.2); EOSINOPHILS % (AUTO) 5.3 % (0.9-2.9); HEMATOCRIT 27.7 % (36.0-47.0); HEMOGLOBIN 9.4 g/dL (12.0-16.0); LYMPHOCYTES # (AUTO) 0.9 X10^3/uL (1.3-2.9); LYMPHOCYTES % (AUTO) 21.1 % (21.0-51.0); MEAN CORPUSCULAR HEMOGLOBIN 31.2 pg (27.0-34.0); MEAN PLATELET VOLUME 8.5 fL (7.4-11.0); MONOCYTES # (AUTO) 0.5 x10^3/uL (0.3-0.8); MONOCYTES % (AUTO) 11.7 % (0.0-13.0); NEUTROPHILS # (AUTO) 2.6 x10^3/uL (2.2-4.8); NEUTROPHILS % (AUTO) 60.9 % (42.0-75.0); PLATELET COUNT 294 X10^3/uL (150.0-450.0); RED BLOOD COUNT 3.01 X10^6/uL (3.5-5.4); RED CELL DISTRIBUTION WIDTH 14.6 % (11.6-16.5); WHITE BLOOD COUNT 4.3 X10^3/uL (3.6-10.0)
[2023-05-14 06:00] LABS: ALANINE AMINOTRANSFERASE 17 Units/L (12-78); ALKALINE PHOSPHATASE 55 Units/L (46-116); ASPARTATE AMINO TRANSFERASE 17 Units/L (15-37); BLOOD UREA NITROGEN 26 mg/dL (7-18); CARBON DIOXIDE 25.7 mmol/L (21-32); CHLORIDE 107 mmol/L (98-107); COR CA(FOR HYPOALB) 10.6 mg/dL (8.5-10.1); CREATININE 1.01 mg/dL (0.55-1.02); GLUCOSE 102 mg/dL (65-99); POTASSIUM 4.1 mmol/L (3.5-5.1); SODIUM 140 mmol/L (136-145); TOTAL PROTEIN 5.9 g/dL (6.4-8.2); eGFR NON BLACK RACES 56 (>60)
[2023-05-14] MEDS ORDERED: ZESTRIL TAB 20 MG ONE ×2 (08:45→21:11)
[2023-05-15] MEDS ORDERED: ZESTRIL TAB 20 MG ONE ×2 (08:23→20:40)
[2023-05-15] MEDS: LASIX PO ONE (16:28)
[2023-05-16] MEDS ORDERED: ZESTRIL TAB 20 MG ONE (07:01)
[2023-05-16] MEDS: LASIX PO ONE (11:42)
[2023-05-17 05:05] LABS: BASOPHILS # (AUTO) 0.1 X10^3/uL (0.0-0.1); BASOPHILS % (AUTO) 1.2 % (0.2-1.0); EOSINOPHILS # (AUTO) 0.2 x10^3/uL (0.0-0.2); EOSINOPHILS % (AUTO) 3.9 % (0.9-2.9); HEMATOCRIT 27.8 % (36.0-47.0); HEMOGLOBIN 9.4 g/dL (12.0-16.0); LYMPHOCYTES % (AUTO) 19.2 % (21.0-51.0); MEAN CORPUSCULAR HGB CONC 33.8 g/dL (33.0-35.0); MEAN CORPUSCULAR VOLUME 91.7 fL (80.0-100.0); MEAN PLATELET VOLUME 8.3 fL (7.4-11.0); MONOCYTES # (AUTO) 0.5 x10^3/uL (0.3-0.8); MONOCYTES % (AUTO) 9.6 % (0.0-13.0); NEUTROPHILS # (AUTO) 3.3 x10^3/uL (2.2-4.8); NEUTROPHILS % (AUTO) 66.1 % (42.0-75.0); PLATELET COUNT 323 X10^3/uL (150.0-450.0); RED BLOOD COUNT 3.03 X10^6/uL (3.5-5.4); RED CELL DISTRIBUTION WIDTH 14.8 % (11.6-16.5)
[2023-05-17 05:21] LABS: ALANINE AMINOTRANSFERASE 16 Units/L (12-78); ALBUMIN 2.2 g/dL (3.4-5.0); ALKALINE PHOSPHATASE 56 Units/L (46-116); ASPARTATE AMINO TRANSFERASE 16 Units/L (15-37); BLOOD UREA NITROGEN 29 mg/dL (7-18); CALCIUM 9.1 mg/dL (8.5-10.1); CARBON DIOXIDE 29.1 mmol/L (21-32); CHLORIDE 109 mmol/L (98-107); COR CA(FOR HYPOALB) 10.5 mg/dL (8.5-10.1); CREATININE 0.98 mg/dL (0.55-1.02); GLUCOSE 102 mg/dL (65-99); POTASSIUM 3.8 mmol/L (3.5-5.1); SODIUM 144 mmol/L (136-145); TOTAL PROTEIN 5.8 g/dL (6.4-8.2); eGFR NON BLACK RACES 57 (>60)
[2023-05-17] MEDS ORDERED: CONSULT PHARMACY - POTASSIUM & MAGNESIUM XX SCH (06:00)
[2023-05-17] MEDS: ZESTRIL TAB 20 MG ONE ×2 (09:14→09:39)
--- NOTE | 2023-05-17 09:27 | PCM.PROG ---
Progress Note Progress Note for Day of Date of Exam: 05/17/23 Subjective Subjective: Pt is a 82 year old female admitted for swing bed status for physical rehab. She was having increased leg swelling over the weekend, received extra lasix dose. She states swelling has improved today. She did not get up much over the weekend. Denies any GI symptoms. She has completed antibiotic treatment for UTI. Labs/imaging reviewed -Hgb 9.4 Mag 1.6 Plan: continue physical therapy as tolerated. Keep legs elevated. Replace Mag. Continue home medications. Past Medical Family Social History Allergies: Allergies iron Allergy (Verified 06/10/22 01:52) latex Allergy (Verified 06/10/22 01:52) Vital Signs and I&O's Vital Signs: Vital Signs Temperature 97.2 F Pulse Rate [Right Brachial] 85 Respiratory Rate 19 Blood Pressure [Right Arm] 114/58 O2 Sat by Pulse Oximetry 95 Intake and Output: Intake & Output 05/14/23 05/15/23 05/16/23 05/17/23 23:59 23:59 23:59 23:59 Intake Total 1360 / 1360 820 / 820 600 / 600 200 / 200 Output Total 650 / 650 250 / 250 900 / 900 100 / 100 Balance 710 / 710 570 / 570 -300 / -300 100 / 100 Physical Exam Oriented: Normal Eyes: Normal Nose: Normal Respiratory: Normal Cardiovascular: Edema (chronic venous stasis) Auscultation: Bowel Sounds: Normal Palpation: Normal Tenderness: Normal Skin: Normal Musculoskeletal: Normal Psychiatric: Normal Mood Description: Calm Affect: Normal Speech Pattern: Clear and Appropriate Laboratory and Diagnostics 05/17/23 04:45 05/17/23 04:45 Labs: Laboratory WBC 5.0 X10^3/uL (3.6-10.0) 05/17/23 04:45 RBC 3.03 X10^6/uL (3.5-5.4) L 05/17/23 04:45 Hgb 9.4 g/dL (12.0-16.0) L 05/17/23 04:45 Hct 27.8 % (36.0-47.0) L 05/17/23 04:45 MCV 91.7 fL (80.0-100.0) 05/17/23 04:45 MCH 31.0 pg (27.0-34.0) 05/17/23 04:45 MCHC 33.8 g/dL (33.0-35.0) 05/17/23 04:45 RDW 14.8 % (11.6-16.5) 05/17/23 04:45 Plt Count 323 X10^3/uL (150.0-450.0) 05/17/23 04:45 MPV 8.3 fL (7.4-11.0) 05/17/23 04:45 Neut % (Auto) 66.1 % (42.0-75.0) 05/17/23 04:45 Lymph % (Auto) 19.2 % (21.0-51.0) L 05/17/23 04:45 [place] % (Auto) 9.6 % (0.0-13.0) 05/17/23 04:45 Eos % (Auto) 3.9 % (0.9-2.9) H 05/17/23 04:45 Baso % (Auto) 1.2 % (0.2-1.0) H 05/17/23 04:45 Neut # (Auto) 3.3 x10^3/uL (2.2-4.8) 05/17/23 04:45 Lymph # (Auto) 1.0 X10^3/uL (1.3-2.9) L 05/17/23 04:45 [place] # (Auto) 0.5 x10^3/uL (0.3-0.8) 05/17/23 04:45 Eos # (Auto) 0.2 x10^3/uL (0.0-0.2) 05/17/23 04:45 Baso # (Auto) 0.1 X10^3/uL (0.0-0.1) 05/17/23 04:45 Absolute Nucleated RBC 0.0 /100WBC 05/17/23 04:45 Sodium 144 mmol/L (136-145) 05/17/23 04:45 Corrected Sodium TNP 05/17/23 04:45 Potassium 3.8 mmol/L (3.5-5.1) 05/17/23 04:45 Chloride 109 mmol/L (98-107) H 05/17/23 04:45 Carbon Dioxide 29.1 mmol/L (21-32) 05/17/23 04:45 BUN 29 mg/dL (7-18) H 05/17/23 04:45 Creatinine 0.98 mg/dL (0.55-1.02) 05/17/23 04:45 Est GFR (MDRD) Af Amer > 60 (>60) 05/17/23 04:45 Est GFR (MDRD) Non-Af 57 (>60) L 05/17/23 04:45 Glucose 102 mg/dL (65-99) H 05/17/23 04:45 POC Glucose (mg/dL) 110 mg/dL (65-99) H 05/12/23 16:11 Calcium 9.1 mg/dL (8.5-10.1) 05/17/23 04:45 Corrected Calcium 10.5 mg/dL (8.5-10.1) H 05/17/23 04:45 Magnesium 1.6 mg/dL (2.0-2.9) L 05/17/23 04:45 Total Bilirubin 0.10 mg/dL (0.2-1.0) L 05/17/23 04:45 AST 16 Units/L (15-37) 05/17/23 04:45 ALT 16 Units/L (12-78) 05/17/23 04:45 Alkaline Phosphatase 56 Units/L (46-116) 05/17/23 04:45 Total Protein 5.8 g/dL (6.4-8.2) L 05/17/23 04:45 Albumin 2.2 g/dL (3.4-5.0) L 05/17/23 04:45 Globulin 3.6 g/dL (2.5-4.5) 05/17/23 04:45 Albumin/Globulin Ratio 0.6 Ratio (1.1-2.1) L 05/17/23 04:45 Plan (1) Generalized weakness: Status: Acute (2) Anemia: Status: Acute Qualifiers: Anemia type: unspecified type Qualified Code(s): D64.9 - Anemia, unspecified (3) Hypomagnesemia: Status: Acute (4) CHF (congestive heart failure): Status: Chronic Qualifiers: Heart failure type: unspecified Heart failure chronicity: chronic Qualified Code(s): I50.9 - Heart failure, unspecified
[2023-05-17] MEDS: MAG-OX TAB PO SCH (10:05)
[2023-05-17] MEDS: K-DUR TAB 20 MEQ PO SCH (10:05)
[2023-05-17] MEDS ORDERED: ZESTRIL TAB 20 MG ONE (20:59)
[2023-05-18 05:44] LABS: MAGNESIUM 1.8 mg/dL (2.0-2.9); POTASSIUM 4.4 mmol/L (3.5-5.1)
[2023-05-18] MEDS ORDERED: CONSULT PHARMACY - POTASSIUM & MAGNESIUM XX SCH (08:00)
[2023-05-18] MEDS: MAG-OX TAB PO SCH (08:43)
[2023-05-18] MEDS: ZESTRIL TAB 20 MG ONE (09:18)
[2023-05-18] MEDS ORDERED: ZESTRIL TAB 20 MG ONE (20:37)
[2023-05-19 06:24] LABS: BASOPHILS # (AUTO) 0.1 X10^3/uL (0.0-0.1); BASOPHILS % (AUTO) 0.9 % (0.2-1.0); EOSINOPHILS # (AUTO) 0.2 x10^3/uL (0.0-0.2); EOSINOPHILS % (AUTO) 3.2 % (0.9-2.9); HEMATOCRIT 29.5 % (36.0-47.0); HEMOGLOBIN 10.1 g/dL (12.0-16.0); LYMPHOCYTES % (AUTO) 17.6 % (21.0-51.0); MEAN CORPUSCULAR HEMOGLOBIN 31.2 pg (27.0-34.0); MEAN CORPUSCULAR HGB CONC 34.2 g/dL (33.0-35.0); MEAN PLATELET VOLUME 8.7 fL (7.4-11.0); MONOCYTES # (AUTO) 0.5 x10^3/uL (0.3-0.8); NEUTROPHILS # (AUTO) 4.1 x10^3/uL (2.2-4.8); NEUTROPHILS % (AUTO) 69.3 % (42.0-75.0); PLATELET COUNT 333 X10^3/uL (150.0-450.0); RED BLOOD COUNT 3.25 X10^6/uL (3.5-5.4); RED CELL DISTRIBUTION WIDTH 14.7 % (11.6-16.5); WHITE BLOOD COUNT 5.9 X10^3/uL (3.6-10.0)
[2023-05-19 06:35] LABS: ALANINE AMINOTRANSFERASE 14 Units/L (12-78); ALBUMIN 2.4 g/dL (3.4-5.0); ALKALINE PHOSPHATASE 62 Units/L (46-116); ASPARTATE AMINO TRANSFERASE 17 Units/L (15-37); BLOOD UREA NITROGEN 27 mg/dL (7-18); CALCIUM 9.3 mg/dL (8.5-10.1); CARBON DIOXIDE 26.9 mmol/L (21-32); CHLORIDE 107 mmol/L (98-107); COR CA(FOR HYPOALB) 10.6 mg/dL (8.5-10.1); COR NA(FOR HYPERGLY) 142 mmol/L (136-145); GLUCOSE 116 mg/dL (65-99); POTASSIUM 4.5 mmol/L (3.5-5.1); SODIUM 142 mmol/L (136-145); TOTAL PROTEIN 6.1 g/dL (6.4-8.2); eGFR NON BLACK RACES 56 (>60)
[2023-05-20] MEDS: ZESTRIL TAB 20 MG ONE ×4 (19:59)
[2023-05-21 06:19] LABS: BASOPHILS # (AUTO) 0.1 X10^3/uL (0.0-0.1); BASOPHILS % (AUTO) 0.9 % (0.2-1.0); EOSINOPHILS # (AUTO) 0.2 x10^3/uL (0.0-0.2); EOSINOPHILS % (AUTO) 2.8 % (0.9-2.9); HEMATOCRIT 30.1 % (36.0-47.0); HEMOGLOBIN 10.1 g/dL (12.0-16.0); LYMPHOCYTES # (AUTO) 0.8 X10^3/uL (1.3-2.9); LYMPHOCYTES % (AUTO) 13.1 % (21.0-51.0); MEAN CORPUSCULAR HEMOGLOBIN 30.7 pg (27.0-34.0); MEAN CORPUSCULAR HGB CONC 33.5 g/dL (33.0-35.0); MEAN CORPUSCULAR VOLUME 91.7 fL (80.0-100.0); MEAN PLATELET VOLUME 8.9 fL (7.4-11.0); MONOCYTES # (AUTO) 0.6 x10^3/uL (0.3-0.8); MONOCYTES % (AUTO) 9.6 % (0.0-13.0); NEUTROPHILS # (AUTO) 4.3 x10^3/uL (2.2-4.8); NEUTROPHILS % (AUTO) 73.6 % (42.0-75.0); PLATELET COUNT 286 X10^3/uL (150.0-450.0); RED BLOOD COUNT 3.28 X10^6/uL (3.5-5.4); RED CELL DISTRIBUTION WIDTH 14.5 % (11.6-16.5); WHITE BLOOD COUNT 5.8 X10^3/uL (3.6-10.0)
[2023-05-21 06:30] LABS: ALANINE AMINOTRANSFERASE 12 Units/L (12-78); ALBUMIN 2.4 g/dL (3.4-5.0); ALKALINE PHOSPHATASE 65 Units/L (46-116); ASPARTATE AMINO TRANSFERASE 16 Units/L (15-37); BLOOD UREA NITROGEN 21 mg/dL (7-18); CALCIUM 9.1 mg/dL (8.5-10.1); CARBON DIOXIDE 26.1 mmol/L (21-32); CHLORIDE 105 mmol/L (98-107); COR CA(FOR HYPOALB) 10.4 mg/dL (8.5-10.1); CREATININE 0.94 mg/dL (0.55-1.02); GLUCOSE 109 mg/dL (65-99); POTASSIUM 4.3 mmol/L (3.5-5.1); SODIUM 141 mmol/L (136-145); TOTAL PROTEIN 6.2 g/dL (6.4-8.2); eGFR NON BLACK RACES > 60 (>60)
[2023-05-21] MEDS ORDERED: ZESTRIL TAB 20 MG ONE ×2 (08:27→20:05)
[2023-05-22] MEDS ORDERED: ZESTRIL TAB 20 MG ONE ×2 (08:49→19:55)
--- NOTE | 2023-05-22 11:02 | PCM.PROG ---
Progress Note Progress Note for Day of Date of Exam: 05/22/23 Subjective Subjective: Patient seen at bedside, no acute events overnight. She is currently swing bed status for physical therapy. She continues to work with PT as tolerated. She is able to sit on the side of the bed. She is not able to do any transfers yet. Staff noticed her left foot was more red and swollen. She denies any fall or injury. Denies any pain with movement. She has been receiving lovenox for DVT ppx. Labs/imaging reviewed -Hgb 10.1 Plan: advised patient to keep the socks off and keep legs elevated. Will monitor redness and swelling. Patient does get lasix 20 mg daily. Physical therapy as tolerated. Continue home medications. Past Medical Family Social History Allergies: Allergies iron Allergy (Verified 06/10/22 01:52) latex Allergy (Verified 06/10/22 01:52) Vital Signs and I&O's Vital Signs: Vital Signs Temperature 98.9 F Pulse Rate [Right Brachial] 89 Respiratory Rate 18 Respiratory Rate 18 Blood Pressure [Right Arm] 133/65 O2 Sat by Pulse Oximetry 97 Intake and Output: Intake & Output 05/19/23 05/20/23 05/21/23 05/22/23 23:59 23:59 23:59 23:59 Intake Total 120 / 120 540 / 540 1190 / 1190 110 / 110 Output Total 850 / 850 50 / 50 100 / 100 Balance -730 / -730 490 / 490 1090 / 1090 110 / 110 Physical Exam Oriented: Normal Eyes: Normal Nose: Normal Respiratory: Normal Cardiovascular: Edema (chronic venous stasis. left LE and ankle worse today. Non-tender ROM intact, no warmth. Slight erythema noted. ) Auscultation: Bowel Sounds: Normal Tenderness: Normal Skin: Normal Musculoskeletal: Normal Psychiatric: Normal Mood Description: Calm Affect: Normal Speech Pattern: Clear and Appropriate Laboratory and Diagnostics 05/21/23 05:27 05/21/23 05:27 Labs: Laboratory WBC 5.8 X10^3/uL (3.6-10.0) 05/21/23 05: RBC 3.28 X10^6/uL (3.5-5.4) L 05/21/23 05:27 Hgb 10.1 g/dL (12.0-16.0) L 05/21/23 05:27 Hct 30.1 % (36.0-47.0) L 05/21/23 05:27 MCV 91.7 fL (80.0-100.0) 05/21/23 05:27 MCH 30.7 pg (27.0-34.0) 05/21/23 05:27 MCHC 33.5 g/dL (33.0-35.0) 05/21/23 05:27 RDW 14.5 % (11.6-16.5) 05/21/23 05:27 Plt Count 286 X10^3/uL (150.0-450.0) 05/21/23 05:27 MPV 8.9 fL (7.4-11.0) 05/21/23 05:27 Neut % (Auto) 73.6 % (42.0-75.0) 05/21/23 05:27 Lymph % (Auto) 13.1 % (21.0-51.0) L 05/21/23 05:27 [place] % (Auto) 9.6 % (0.0-13.0) 05/21/23 05:27 Eos % (Auto) 2.8 % (0.9-2.9) 05/21/23 05:27 Baso % (Auto) 0.9 % (0.2-1.0) 05/21/23 05:27 Neut # (Auto) 4.3 x10^3/uL (2.2-4.8) 05/21/23 05:27 Lymph # (Auto) 0.8 X10^3/uL (1.3-2.9) L 05/21/23 05:27 [place] # (Auto) 0.6 x10^3/uL (0.3-0.8) 05/21/23 05:27 Eos # (Auto) 0.2 x10^3/uL (0.0-0.2) 05/21/23 05:27 Baso # (Auto) 0.1 X10^3/uL (0.0-0.1) 05/21/23 05:27 Absolute Nucleated RBC 0.0 /100WBC 05/21/23 05:27 Sodium 141 mmol/L (136-145) 05/21/23 05:27 Corrected Sodium TNP 05/21/23 05:27 Potassium 4.3 mmol/L (3.5-5.1) 05/21/23 05:27 Chloride 105 mmol/L (98-107) 05/21/23 05:27 Carbon Dioxide 26.1 mmol/L (21-32) 05/21/23 05:27 BUN 21 mg/dL (7-18) H 05/21/23 05:27 Creatinine 0.94 mg/dL (0.55-1.02) 05/21/23 05:27 Est GFR (MDRD) Af Amer > 60 (>60) 05/21/23 05:27 Est GFR (MDRD) Non-Af > 60 (>60) 05/21/23 05:27 Glucose 109 mg/dL (65-99) H 05/21/23 05:27 POC Glucose (mg/dL) 110 mg/dL (65-99) H 05/12/23 16:11 Calcium 9.1 mg/dL (8.5-10.1) 05/21/23 05:27 Corrected Calcium 10.4 mg/dL (8.5-10.1) H 05/21/23 05:27 Magnesium 2.0 mg/dL (2.0-2.9) 05/19/23 05:37 Total Bilirubin 0.20 mg/dL (0.2-1.0) 05/21/23 05:27 AST 16 Units/L (15-37) 05/21/23 05:27 ALT 12 Units/L (12-78) 05/21/23 05:27 Alkaline Phosphatase 65 Units/L (46-116) 05/21/23 05:27 Total Protein 6.2 g/dL (6.4-8.2) L 05/21/23 05:27 Albumin 2.4 g/dL (3.4-5.0) L 05/21/23 05:27 Globulin 3.8 g/dL (2.5-4.5) 05/21/23 05:27 Albumin/Globulin Ratio 0.6 Ratio (1.1-2.1) L 05/21/23 05:27 Plan (1) Leg edema: Status: Acute (2) Generalized weakness: Status: Acute (3) Chronic venous stasis: Status: Acute (4) Anemia: Status: Acute Qualifiers: Anemia type: unspecified type Qualified Code(s): D64.9 - Anemia, unspecified (5) Hypomagnesemia: Status: Acute (6) CHF (congestive heart failure): Status: Chronic Qualifiers: Heart failure type: unspecified Heart failure chronicity: chronic Qualified Code(s): I50.9 - Heart failure, unspecified
[2023-05-23 06:00] LABS: BASOPHILS % (AUTO) 0.6 % (0.2-1.0); EOSINOPHILS # (AUTO) 0.3 x10^3/uL (0.0-0.2); EOSINOPHILS % (AUTO) 4.4 % (0.9-2.9); HEMOGLOBIN 10.1 g/dL (12.0-16.0); LYMPHOCYTES # (AUTO) 0.6 X10^3/uL (1.3-2.9); MEAN CORPUSCULAR HEMOGLOBIN 30.8 pg (27.0-34.0); MEAN CORPUSCULAR HGB CONC 33.5 g/dL (33.0-35.0); MEAN CORPUSCULAR VOLUME 91.8 fL (80.0-100.0); MEAN PLATELET VOLUME 8.6 fL (7.4-11.0); MONOCYTES # (AUTO) 0.8 x10^3/uL (0.3-0.8); MONOCYTES % (AUTO) 12.8 % (0.0-13.0); NEUTROPHILS # (AUTO) 4.5 x10^3/uL (2.2-4.8); NEUTROPHILS % (AUTO) 72.2 % (42.0-75.0); PLATELET COUNT 296 X10^3/uL (150.0-450.0); RED BLOOD COUNT 3.26 X10^6/uL (3.5-5.4); WHITE BLOOD COUNT 6.3 X10^3/uL (3.6-10.0)
[2023-05-23 06:19] LABS: ALANINE AMINOTRANSFERASE 10 Units/L (12-78); ALBUMIN 2.4 g/dL (3.4-5.0); ALKALINE PHOSPHATASE 60 Units/L (46-116); ASPARTATE AMINO TRANSFERASE 15 Units/L (15-37); BLOOD UREA NITROGEN 21 mg/dL (7-18); CALCIUM 8.9 mg/dL (8.5-10.1); CARBON DIOXIDE 26.5 mmol/L (21-32); CHLORIDE 105 mmol/L (98-107); COR CA(FOR HYPOALB) 10.2 mg/dL (8.5-10.1); COR NA(FOR HYPERGLY) 139 mmol/L (136-145); CREATININE 1.09 mg/dL (0.55-1.02); GLUCOSE 116 mg/dL (65-99); POTASSIUM 4.2 mmol/L (3.5-5.1); SODIUM 139 mmol/L (136-145); TOTAL PROTEIN 6.3 g/dL (6.4-8.2); eGFR NON BLACK RACES 51 (>60)
[2023-05-23] MEDS ORDERED: ZESTRIL TAB 20 MG ONE ×2 (08:19→19:48)
[2023-05-24 07:49] VITALS: O2SAT 93
[2023-05-24] MEDS ORDERED: ZESTRIL TAB 20 MG ONE ×2 (08:06→20:03)
[2023-05-25] MEDS ORDERED: ZESTRIL TAB 20 MG ONE ×2 (08:11→20:11)
--- NOTE | 2023-05-25 09:16 | PCM.PROG ---
Progress Note Progress Note for Day of Date of Exam: 05/25/23 Subjective Subjective: Patient seen at bedside, no acute events overnight. She is currently swing bed status for physical therapy. She continues to work with PT as tolerated. She was not able to work much yesterday. She is able to sit on the side of the bed but is not able to transfer. Patient will need more rehab, referral sent to [facility] for STR placement. Labs/imaging reviewed Plan: Continue PT as tolerated, continue current medications. Keep legs elevated. Waiting to hear back from [facility] regarding STR placement. Past Medical Family Social History Allergies: Allergies iron Allergy (Verified 06/10/22 01:52) latex Allergy (Verified 06/10/22 01:52) Vital Signs and I&O's Intake and Output: Intake & Output 05/22/23 05/23/23 05/24/23 05/25/23 23:59 23:59 23:59 23:59 Intake Total 1580 / 1580 1030 / 1030 640 / 640 522 / 522 Output Total 500 / 500 800 / 800 400 / 400 250 / 250 Balance 1080 / 1080 230 / 230 240 / 240 272 / 272 Physical Exam Oriented: Normal Eyes: Normal Nose: Normal Respiratory: Normal Cardiovascular: Edema (chronic venous stasis. Swelling and erythema improved) Auscultation: Bowel Sounds: Normal Tenderness: Normal Skin: Normal Musculoskeletal: Normal Psychiatric: Normal Mood Description: Calm Affect: Normal Speech Pattern: Clear and Appropriate Laboratory and Diagnostics 05/23/23 05:40 05/23/23 05:40 Labs: Laboratory WBC 6.3 X10^3/uL (3.6-10.0) 05/23/23 05:40 RBC 3.26 X10^6/uL (3.5-5.4) L 05/23/23 05:40 Hgb 10.1 g/dL (12.0-16.0) L 05/23/23 05:40 Hct 30.0 % (36.0-47.0) L 05/23/23 05:40 MCV 91.8 fL (80.0-100.0) 05/23/23 05:40 MCH 30.8 pg (27.0-34.0) 05/23/23 05:40 MCHC 33.5 g/dL (33.0-35.0) 05/23/23 05:40 RDW 15.0 % (11.6-16.5) 05/23/23 05:40 Plt Count 296 X10^3/uL (150.0-450.0) 05/23/23 05:40 MPV 8.6 fL (7.4-11.0) 05/23/23 05:40 Neut % (Auto) 72.2 % (42.0-75.0) 05/23/23 05:40 Lymph % (Auto) 10.0 % (21.0-51.0) L 05/23/23 05:40 [place] % (Auto) 12.8 % (0.0-13.0) 05/23/23 05:40 Eos % (Auto) 4.4 % (0.9-2.9) H 05/23/23 05:40 Baso % (Auto) 0.6 % (0.2-1.0) 05/23/23 05:40 Neut # (Auto) 4.5 x10^3/uL (2.2-4.8) 05/23/23 05:40 Lymph # (Auto) 0.6 X10^3/uL (1.3-2.9) L 05/23/23 05:40 [place] # (Auto) 0.8 x10^3/uL (0.3-0.8) 05/23/23 05:40 Eos # (Auto) 0.3 x10^3/uL (0.0-0.2) H 05/23/23 05:40 Baso # (Auto) 0.0 X10^3/uL (0.0-0.1) 05/23/23 05:40 Absolute Nucleated RBC 0.1 /100WBC 05/23/23 05:40 Sodium 139 mmol/L (136-145) 05/23/23 05:40 Corrected Sodium 139 mmol/L (136-145) 05/23/23 05:40 Potassium 4.2 mmol/L (3.5-5.1) 05/23/23 05:40 Chloride 105 mmol/L (98-107) 05/23/23 05:40 Carbon Dioxide 26.5 mmol/L (21-32) 05/23/23 05:40 BUN 21 mg/dL (7-18) H 05/23/23 05:40 Creatinine 1.09 mg/dL (0.55-1.02) H 05/23/23 05:40 Est GFR (MDRD) Af Amer > 60 (>60) 05/23/23 05:40 Est GFR (MDRD) Non-Af 51 (>60) L 05/23/23 05:40 Glucose 116 mg/dL (65-99) H 05/23/23 05:40 POC Glucose (mg/dL) 110 mg/dL (65-99) H 05/12/23 16:11 Calcium 8.9 mg/dL (8.5-10.1) 05/23/23 05:40 Corrected Calcium 10.2 mg/dL (8.5-10.1) H 05/23/23 05:40 Magnesium 2.0 mg/dL (2.0-2.9) 05/19/23 05:37 Total Bilirubin 0.30 mg/dL (0.2-1.0) 05/23/23 05:40 AST 15 Units/L (15-37) 05/23/23 05:40 ALT 10 Units/L (12-78) L 05/23/23 05:40 Alkaline Phosphatase 60 Units/L (46-116) 05/23/23 05:40 Total Protein 6.3 g/dL (6.4-8.2) L 05/23/23 05:40 Albumin 2.4 g/dL (3.4-5.0) L 05/23/23 05:40 Globulin 3.9 g/dL (2.5-4.5) 05/23/23 05:40 Albumin/Globulin Ratio 0.6 Ratio (1.1-2.1) L 05/23/23 05:40 Plan (1) Leg edema: Status: Acute (2) Generalized weakness: Status: Acute (3) Chronic venous stasis: Status: Acute (4) Anemia: Status: Acute Qualifiers: Anemia type: unspecified type Qualified Code(s): D64.9 - Anemia, uns pecified (5) Hypomagnesemia: Status: Acute (6) CHF (congestive heart failure): Status: Chronic Qualifiers: Heart failure type: unspecified Heart failure chronicity: chronic Qualified Code(s): I50.9 - Heart failure, unspecified
[2023-05-25 21:23] VITALS: PULSE 77; RESP 20
[2023-05-26 05:54] LABS: BASOPHILS % (AUTO) 0.6 % (0.2-1.0); EOSINOPHILS # (AUTO) 0.2 x10^3/uL (0.0-0.2); EOSINOPHILS % (AUTO) 4.4 % (0.9-2.9); HEMATOCRIT 27.6 % (36.0-47.0); HEMOGLOBIN 9.3 g/dL (12.0-16.0); LYMPHOCYTES # (AUTO) 0.7 X10^3/uL (1.3-2.9); LYMPHOCYTES % (AUTO) 14.2 % (21.0-51.0); MEAN CORPUSCULAR HEMOGLOBIN 30.5 pg (27.0-34.0); MEAN CORPUSCULAR HGB CONC 33.6 g/dL (33.0-35.0); MEAN CORPUSCULAR VOLUME 90.8 fL (80.0-100.0); MEAN PLATELET VOLUME 8.7 fL (7.4-11.0); MONOCYTES # (AUTO) 0.5 x10^3/uL (0.3-0.8); MONOCYTES % (AUTO) 9.3 % (0.0-13.0); NEUTROPHILS # (AUTO) 3.7 x10^3/uL (2.2-4.8); NEUTROPHILS % (AUTO) 71.5 % (42.0-75.0); PLATELET COUNT 325 X10^3/uL (150.0-450.0); RED BLOOD COUNT 3.05 X10^6/uL (3.5-5.4); RED CELL DISTRIBUTION WIDTH 15.1 % (11.6-16.5); WHITE BLOOD COUNT 5.2 X10^3/uL (3.6-10.0)
[2023-05-26 06:10] LABS: ALANINE AMINOTRANSFERASE 10 Units/L (12-78); ALBUMIN 2.2 g/dL (3.4-5.0); ALKALINE PHOSPHATASE 58 Units/L (46-116); ASPARTATE AMINO TRANSFERASE 11 Units/L (15-37); BLOOD UREA NITROGEN 19 mg/dL (7-18); CALCIUM 9.1 mg/dL (8.5-10.1); CARBON DIOXIDE 26.3 mmol/L (21-32); CHLORIDE 106 mmol/L (98-107); COR CA(FOR HYPOALB) 10.5 mg/dL (8.5-10.1); CREATININE 0.99 mg/dL (0.55-1.02); GLUCOSE 109 mg/dL (65-99); POTASSIUM 4.2 mmol/L (3.5-5.1); SODIUM 141 mmol/L (136-145); TOTAL PROTEIN 6.1 g/dL (6.4-8.2); eGFR NON BLACK RACES 57 (>60)
[2023-05-26] MEDS ORDERED: ZESTRIL TAB 20 MG ONE (08:06)
[2023-05-26 11:20] VITALS: BP 147/65; TEMP 97.8
== END 2023-05-26 13:35 | DRG 690 ==
LOC: MED/SURG 13:00
PROVIDERS: ADMIT Internal Medicine; ATTEND Internal Medicine
DX: G25.2 Other specified forms of tremor; R26.89 Other abnormalities of gait and mobility; I50.9 Heart failure, unspecified; N39.0 Urinary tract infection, site not specified; E83.42 Hypomagnesemia; I11.0 Hypertensive heart disease with heart failure; Z51.89 Encounter for other specified aftercare; I87.8 Other specified disorders of veins; R53.1 Weakness; D64.89 Other specified anemias; Z79.01 Long term (current) use of anticoagulants; R60.0 Localized edema